=== PATIENT | male | born 1940 | race Caucasian/White ===

== ENCOUNTER 2016-07-24 19:43 | Inpatient (IN) | payer MEDICARE, BC ==
[2016-07-24 19:44] VITALS: BMI 31.5
--- NOTE | 2016-07-24 20:58 | ED PDOC ---
Arrival/HPI - General Chief Complaint: Fever Time Seen by Provider: 07/24/16 20:25 Historian: Patient - History of Present Illness Narrative History of Present Illness (Text): 07/24/16 20:57 75 year old male whose past medical history includes COPD, chronic renal insufficency, and diabetes presents to the emergency department with fever and chills since this morning, also being treated w abx for some unspecified infection, now here for for bilateral lower extremity cellulitis over the past week. no vomiting or diarrhea. PMD: Dr. Reese 07/25/16 11:25 Time/Duration: 1 week Symptom Onset: Gradual Symptom Course: Unchanged Past Medical History - Provider Review Nursing Documentation Reviewed: Yes - Infectious Disease Hx of Infectious Diseases: None - Tetanus Immunization Tetanus Immunization: Unknown - Cardiac Hx Cardiac Disorders: Yes Hx Congestive Heart Failure: Yes Hx Hypertension: Yes - Pulmonary Hx Chronic Obstructive Pulmonary Disease (COPD): Yes - Neurological Hx Neurological Disorder: Yes Hx Dementia: Yes - HEENT Hx HEENT Disorder: Yes Hx Cataracts: Yes (left eye) - Renal Hx Renal Failure: Yes - Endocrine/Metabolic Hx Diabetes Mellitus Type 2: Yes - Hematological/Oncological Hx Blood Disorders: No - Integumentary Hx Dermatological Disorder: Yes Other/Comment: LYMPEDEMA BILATERAL LE, +4 pitting edema and dry leathery, painful , red lower legs - Musculoskeletal/Rheumatological Hx Arthritis: Yes - Gastrointestinal Hx Gastrointestinal Disorders: No - Genitourinary/Gynecological Hx Genitourinary Disorders: Yes (URINARY RETENTION) Hx Reproductive Disorders: Yes (BPH) - Psychiatric Hx Psychophysiologic Disorder: Yes Hx Depression: Yes Hx Emotional Abuse: No Hx Physical Abuse: No Hx Substance Use: No - Past Surgical History Past Surgical History: No Previous - Surgical History Other/Comment: polyps removed in rectum - Anesthesia Hx Anesthesia: Yes Hx Anesthesia Reactions: No Hx Malignant Hyperthermia: No - Suicidal Assessment Feels Threatened In Home Enviroment: No Family/Social History - Physician Review Nursing Documentation Reviewed: Yes Family/Social History: Unknown Family HX Smoking Status: Heavy Smoker > 10 Cigarettes Daily Hx Alcohol Use: No Hx Substance Use: No Hx Substance Use Treatment: No Allergies/Home Meds Allergies/Adverse Reactions: Allergies No Known Allergies Allergy (Verified 07/24/16 19:45) Home Medications: Home Meds Medication Instructions Recorded Confirmed Atorvastatin [Lipitor] 20 mg PO DAILY 04/05/12 07/24/16 Clopidogrel [Plavix] 75 mg PO DAILY 04/05/12 07/24/16 Exenatide [Byetta] 10 units SC BID 04/05/12 07/24/16 Metformin HCl 1,000 mg PO BID 04/05/12 07/24/16 Glyburide 5 mg PO TID 07/18/15 07/24/16 SITagliptin [Januvia] 100 mg PO DAILY 07/18/15 07/24/16 Pantoprazole [Protonix EC Tab] 40 mg PO DAILY 07/24/16 07/24/16 Review of Systems - Physician Review All systems were reviewed & negative as marked: Yes - Review of Systems Constitutional: Fevers Respiratory: absent: SOB Skin: Cellulitis (bilateral lower extremities) Physical Exam Vital Signs Reviewed: Yes Vital Signs Temp Pulse Resp BP Pulse Ox 07/25/16 00:08 93 H 18 95 07/24/16 19:49 98.5 F 106 H 18 106/63 94 L Temperature: Afebrile Blood Pressure: Normal Pulse: Tachycardic Respiratory Rate: Normal Appearance: Positive for: Well-Appearing, Non-Toxic, Comfortable Pain Distress: None Mental Status: Positive for: Alert and Oriented X 3 - Systems Exam Head: Present: Atraumatic, Normocephalic Pupils: Present: PERRL Extroacular Muscles: Present: EOMI Conjunctiva: Present: Normal Mouth: Present: Moist Mucous Membranes Neck: Present: Normal Range of Motion Respiratory/Chest: Present: Clear to Auscultation, Good Air Exchange. No: Respiratory Distress, Accessory Muscle Use Cardiovascular: Present: Regular Rate and Rhythm, Normal S1, S2. No: Murmurs Abdomen: Present: Normal Bowel Sounds. No: Tenderness, Distention, Peritoneal Signs Genitourinary Male: Present: Other (Chain Pegger: Souleymane, Scribe) Back: Present: Normal Inspection Upper Extremity: Present: Normal Inspection. No: Cyanosis, Edema Lower Extremity: Present: Edema (Bilateral lymphedema with erythema bilateral. ) Neurological: Present: GCS=15, CN II-XII Intact, Speech Normal Skin: Present: Warm, Dry, Normal Color. No: Rashes Psychiatric: Present: Alert, Oriented x 3, Normal Insight, Normal Concentration Medical Decision Making ED Course and Treatment: 07/24/16 22:22 Reviewed sono, US Testes - no acute process see full report Paged Dr. Reese. = 07/24/16 22:[address] Reese, pt primary doctor, who is aware and agrees with plan. Accepts pt in to his service. Requests Dr. Reeder podiatry and Dr. Escudero ID on consult. ordered iv abx for patient. 07/25/16 11:26 07/25/16 15:50 - Lab Interpretations Lab Results: 07/24/16 20:59 07/24/16 20:59 Lab Results 07/24/16 20:59: WBC 8.9, RBC 3.65, Hgb 11.6 L, Hct 34.7 L, MCV 95.1, MCH 31.8, MCHC 33.4, RDW 13.1, Plt Count 200, MPV 11.5 H, Gran % 68.6 H, Lymph % (Auto) 21.5 L, [place] % (Auto) 8.5 H, Eos % (Auto) 1.1 L, Baso % (Auto) 0.3, Gran # 6.12 , Lymph # 1.9, [place] # 0.8 H, Eos # 0.1, Baso # 0.03 07/24/16 20:59: Sodium 137, Potassium 3.9, Chloride 96 L, Carbon Dioxide 31, Anion Gap 14, BUN 57 H, Creatinine 2.2 H, Est GFR ( Amer) 35, Est GFR ( Non-Af Amer) 29, Random Glucose 98, Calcium 9.1, Total Bilirubin 0.4, AST 23, ALT 29, Alkaline Phosphatase 53, Total Protein 6.7, Albumin 3.6, Globulin 3.1, Albumin/Globulin Ratio 1.2 - RAD Interpretation Radiology Orders: 07/24/16 20:53 TESTES DUPLEX COMPLETE [US] Stat - Medication Orders Current Medication Orders: Albuterol/Ipratropium (Duoneb 3 Mg/0.5 Mg (3 Ml) Ud) 3 ml IH Q2H PRN PRN Reason: Shortness of Breath Atorvastatin Calcium (Lipitor) 20 mg PO DAILY [facility] Last Admin: 07/25/16 10:51 Dose: 20 mg Clopidogrel Bisulfate (Plavix) 75 mg PO DAILY [facility] Last Admin: 07/25/16 10:51 Dose: 75 mg Docusate Sodium (Colace) 100 mg PO BID [facility] Last Admin: 07/25/16 10:51 Dose: 100 mg Enoxaparin Sodium (Lovenox) 30 mg SC DAILY [facility] PRN Reason: Protocol Last Admin: 07/25/16 10:50 Dose: 30 mg Finasteride (Proscar) 5 mg PO DAILY [facility] Last Admin: 07/25/16 10:52 Dose: 5 mg Gabapentin (Neurontin) 300 mg PO HS [facility] PRN Reason: Protocol Last Admin: 07/25/16 01:31 Dose: 300 mg Re-Assess: Reassess Psych Meds Document 07/25/16 02:31 BN (Rec: 07/25/16 02:56 BN [id number]) Reassess Psych Med Effective Glyburide (Micronase) 5 mg PO AC [facility] Last Admin: 07/25/16 08:07 Dose: Not Given Non-Admin Reason: Patient Lethargic Sodium Chloride (Sodium Chloride 0.45%) 1,000 mls @ 100 mls/hr IV .Q10H [facility] Last Admin: 07/25/16 13:53 Dose: 100 mls/hr Ceftaroline Fosamil 400 mg/ (Sodium Chloride) 100 mls @ 100 mls/hr IVPB Q12 [facility] PRN Reason: Protocol Stop: 08/01/16 10:01 Last Admin: 07/25/16 10:57 Dose: 100 mls/hr Insulin Detemir (Levemir) 15 unit SC DAILY [facility] Last Admin: 07/25/16 10:52 Dose: 15 unit Insulin Human Regular (Humulin R Low) 0 units SC ACHS [facility] PRN Reason: Protocol Last Admin: 07/25/16 12:25 Dose: 2 units Magnesium Oxide (Mag-Ox) 400 mg PO DAILY [facility] Last Admin: 07/25/16 10:51 Dose: 400 mg Nicotine (Nicoderm Cq) 1 patch TD DAILY [facility] Last Admin: 07/25/16 10:50 Dose: 1 patch Pantoprazole Sodium (Protonix Ec Tab) 40 mg PO DAILY [facility] Last Admin: 07/25/16 10:51 Dose: 40 mg Sitagliptin Phosphate (Januvia) 25 mg PO DAILY [facility] Last Admin: 07/25/16 10:51 Dose: 25 mg Tamsulosin HCl (Flomax) 0.4 mg PO DAILY [facility] Last Admin: 07/25/16 10:51 Dose: 0.4 mg Discontinued Medications Vancomycin HCl (Vancomycin 1gm) 1 gm in 250 mls @ 167 mls/hr IVPB STAT STA PRN Reason: Protocol Stop: 07/25/16 00:04 Last Admin: 07/25/16 01:32 Dose: 167 mls/hr Cefazolin Sodium (Ancef 1gm In Ns) 1 gm in 100 mls @ 100 mls/hr IVPB STAT STA PRN Reason: Protocol Stop: 07/25/16 02:00 Last Admin: 07/25/16 01:31 Dose: 100 mls/hr Disposition/Present on Arrival - Present on Arrival Any Indicators Present on Arrival: Yes History of DVT/PE: No History of Uncontrolled Diabetes: Yes Urinary Catheter: No History of Decub. Ulcer: No History Surgical Site Infection Following: None - Disposition Have Diagnosis and Disposition been Completed?: Yes Diagnosis: Cellulitis, Renal insufficiency Disposition: HOSPITALIZED Disposition Time: 22:00 Patient Plan: Admission Patient Problems: Current Active Problems Problem Status Onset Cellulitis Acute Renal insufficiency Acute Condition: STABLE
[2016-07-24 21:22] LABS: ADD MANUAL DIFF? NO
[2016-07-24 21:27] LABS: BASO # 0.03 K/mm3 (0.0-2.0); BASO % 0.3 % (0.0-3.0); EOS # 0.1 (0.0-0.7); EOS % 1.1 % (1.5-5.0); GRAN # 6.12 (1.4-6.5); GRAN % 68.6 % (50.0-68.0); HEMATOCRIT 34.7 % (42.0-52.0); LYMPH # 1.9 (1.2-3.4); LYMPH % 21.5 % (22.0-35.0); MEAN CELL VOLUME 95.1 fL (80.0-105.0); MEAN CORPUSCULAR HEMOGLOBIN 31.8 pg (25.0-35.0); MEAN CORPUSCULAR HGB CONC 33.4 g/dl (31.0-37.0); MEAN PLATELET VOLUME 11.5 fl (7.0-11.0); MONO # 0.8 (0.1-0.6); MONO % 8.5 % (1.0-6.0); PLATELET COUNT 200 10^3/uL (120.0-450.0); RED CELL DISTRIBUTION WIDTH 13.1 % (11.5-14.5); WHITE BLOOD COUNT 8.9 10^3/ul (4.5-11.0)
[2016-07-24 21:39] LABS: ALB/GLOB RATIO 1.2 (1.1-1.8); BILIRUBIN,TOTAL 0.4 mg/dL (0.2-1.3); CALCIUM 9.1 mg/dL (8.4-10.5); POTASSIUM 3.9 mmol/L (3.6-5.0); TOTAL PROTEIN 6.7 g/dL (5.8-8.3)
--- NOTE | 2016-07-24 22:14 | US ---
EXAM: US Scrotum CLINICAL HISTORY: 75 years old, male; Pain; Scrotum pain; Additional info: L testicular pain TECHNIQUE: Real-time ultrasound of the scrotum with color Doppler and image documentation. EXAM DATE/TIME: 07/24/2016 8:53 PM COMPARISON: There are no prior studies for comparison. FINDINGS: Right testicle: Right testicle measures proximally 4.4 x 2.8 x 2.3 cm. There is expected intratesticular blood flow. There are no testicular masses. Right epididymal head measures approximately 9 x 11 mm. There is no skin thickening. There is no hydrocele. . Left testicle: Left testicle measures approximately 4 x 2.4 x 2.4 cm. There are no testicular masses. There is expected intratesticular blood flow. Left epididymal head measures approximately 8 x 10 mm. There is no hydrocele. There may be a small left varicocele IMPRESSION: No torsion or testicular masses; possible small left varicocele
[2016-07-24] MEDS ORDERED: ceFAZolin 1 gm in NS 1 GM/100 ML BAG IVPB STA (22:34)
[2016-07-24] MEDS ORDERED: Vancomycin 1gm in NS 250ml 1 GM/250 ML BAG IVPB STA (22:35)
[2016-07-24] MEDS ORDERED: Albuterol-Ipratrop 3 mg / 0.5 (3 ml) UD IH PRN (23:47)
[2016-07-25] MEDS ORDERED: ceFAZolin 1 gm in NS 1 GM/100 ML BAG IVPB STA (01:01)
[2016-07-25] MEDS: Sodium Chloride 0.45% 1,000 ML IV SCH ×2 (01:32→13:53)
[2016-07-25] MEDS ORDERED: Enoxaparin 40 mg Syringe SC SCH (10:00)
[2016-07-25] MEDS: Enoxaparin 30 mg Syringe SC SCH (10:50)
[2016-07-25] MEDS: Magnesium Oxide 400 mg Tab UD PO SCH (10:51)
[2016-07-25] MEDS: Pantoprazole 40 mg EC Tab PO SCH (10:51)
[2016-07-25] MEDS: Insulin Detemir 100 units/ml Vial (Levemir) SC SCH (10:52)
[2016-07-25] MEDS: Insulin Reg-LOW-Coverage SC SCH ×3 (12:25→22:11)
--- NOTE | 2016-07-25 16:13 | CP.PCM.CON ---
History of Present Illness - History of Present Illness History of Present Illness: 75 year old male was seen resting comfortably at bedside. Pt seen concerning bilateral leg swelling and redness. Symptoms began 1 week ago and have progressed to current intensity and distribution. Pt denies recent inciting even. Pt grades pain to legs upon contact graded a 4/10/. Pt also reporting pain to plantar lateral aspect of left foot. Pt denies inciting incident or trauma to area. Grades this pain a 3/10 when walking. Pt was admitted with fever and chills, symptoms have subsided at time of interview. Pt denies overnight n/v/sob/cp. Past Patient History - Infectious Disease Hx of Infectious Diseases: None - Tetanus Immunizations Tetanus Immunization: Unknown - Past Social History Smoking Status: Heavy Smoker > 10 Cigarettes Daily - CARDIAC Hx Cardiac Disorders: Yes Hx Congestive Heart Failure: Yes Hx Hypertension: Yes - PULMONARY Hx Chronic Obstructive Pulmonary Disease (COPD): Yes - NEUROLOGICAL Hx Neurological Disorder: Yes Hx Dementia: Yes - HEENT Hx HEENT Problems: Yes Hx Cataracts: Yes (left eye) - RENAL Hx Renal Failure: Yes - ENDOCRINE/METABOLIC Hx Diabetes Mellitus Type 2: Yes - HEMATOLOGICAL/ONCOLOGICAL Hx Blood Disorders: No - INTEGUMENTARY Hx Dermatological Problems: Yes Other/Comment: LYMPEDEMA BILATERAL LE, +4 pitting edema and dry leathery, painful , red lower legs - MUSCULOSKELETAL/RHEUMATOLOGICAL Hx Arthritis: Yes - GASTROINTESTINAL Hx Gastrointestinal Disorders: No - GENITOURINARY/GYNECOLOGICAL Hx Genitourinary Disorders: Yes (URINARY RETENTION) Hx Reproductive Disorders: Yes (BPH) - PSYCHIATRIC Hx Psychophysiologic Disorder: Yes Hx Depression: Yes Hx Emotional Abuse: No Hx Physical Abuse: No Hx Substance Use: No - SURGICAL HISTORY Other/Comment: polyps removed in rectum - ANESTHESIA Hx Anesthesia: Yes Hx Anesthesia Reactions: No Hx Malignant Hyperthermia: No Meds Allergies/Adverse Reactions: Allergies Allergy/AdvReac Type Severity Reaction Status Date / Time No Known Allergies Allergy Verified 07/24/16 19:45 - Medications Medications: Current Medications Albuterol/Ipratropium (Duoneb 3 Mg/0.5 Mg (3 Ml) Ud) 3 ml IH Q2H PRN PRN Reason: Shortness of Breath Atorvastatin Calcium (Lipitor) 20 mg PO DAILY [facility] Last Admin: 07/25/16 10:51 Dose: 20 mg Clopidogrel Bisulfate (Plavix) 75 mg PO DAILY [facility] Last Admin: 07/25/16 10:51 Dose: 75 mg Docusate Sodium (Colace) 100 mg PO BID [facility] Last Admin: 07/25/16 10:51 Dose: 100 mg Enoxaparin Sodium (Lovenox) 30 mg SC DAILY [facility] PRN Reason: Protocol Last Admin: 07/25/16 10:50 Dose: 30 mg Finasteride (Proscar) 5 mg PO DAILY [facility] Last Admin: 07/25/16 10:52 Dose: 5 mg Gabapentin (Neurontin) 300 mg PO HS [facility] PRN Reason: Protocol Last Admin: 07/25/16 01:31 Dose: 300 mg Glyburide (Micronase) 5 mg PO AC [facility] Last Admin: 07/25/16 08:07 Dose: Not Given Sodium Chloride (Sodium Chloride 0.45%) 1,000 mls @ 100 mls/hr IV .Q10H [facility] Last Admin: 07/25/16 13:53 Dose: 100 mls/hr Ceftaroline Fosamil 400 mg/ (Sodium Chloride) 100 mls @ 100 mls/hr IVPB Q12 [facility] PRN Reason: Protocol Stop: 08/01/16 10:01 Last Admin: 07/25/16 10:57 Dose: 100 mls/hr Insulin Detemir (Levemir) 15 unit SC DAILY [facility] Last Admin: 07/25/16 10:52 Dose: 15 unit Insulin Human Regular (Humulin R Low) 0 units SC ACHS [facility] PRN Reason: Protocol Last Admin: 07/25/16 12:25 Dose: 2 units Magnesium Oxide (Mag-Ox) 400 mg PO DAILY [facility] Last Admin: 07/25/16 10:51 Dose: 400 mg Nicotine (Nicoderm Cq) 1 patch TD DAILY [facility] Last Admin: 07/25/16 10:50 Dose: 1 patch Pantoprazole Sodium (Protonix Ec Tab) 40 mg PO DAILY [facility] Last Admin: 07/25/16 10:51 Dose: 40 mg Sitagliptin Phosphate (Januvia) 25 mg PO DAILY [facility] Last Admin: 07/25/16 10:51 Dose: 25 mg Tamsulosin HCl (Flomax) 0.4 mg PO DAILY [facility] Last Admin: 07/25/16 10:51 Dose: 0.4 mg Physical Exam - Constitutional Appears: Well, Non-toxic, No Acute Distress - Extremities Exam Additional comments: Vasc: DP and PT pulses non-palpable bilateral. CFT >5 seconds to all digits b/ l. Neuro: Gross sensation decreased b/l. Ortho: Pain on palpation to bilateral legs and dorsal feet. Derm: Skin of dorsal feet and skin is shiny, thin, with non-blanchable erythema. No open wounds, lesions, or portals of entry noted. Right turgid, dorsal foot vesicle noted. Lymphedema noted extending from feet bilaterally up to thigh level. Right foot sub-5th metatarsal head tender to palpation keratotic lesion noted. - Neurological Exam Neurological exam: Alert, Oriented x3 - Psychiatric Exam Psychiatric exam: Normal Affect, Normal Mood Results - Vital Signs Recent Vital Signs: Last Vital Signs Temp 98.4 F 07/25/16 08:47 Pulse 94 H 07/25/16 11:11 Resp 20 07/25/16 08:47 BP 127/68 07/25/16 08:47 Pulse Ox 95 07/25/16 00:08 - Labs Result Diagrams: 07/24/16 20:59 07/24/16 20:59 Assessment & Plan - Assessment and Plan (Free Text) Assessment: 75 year old male with 1) Lymphedema and cellulits. 2) Right plantar Intractable plantar keratosis (IPK)lesion. Plan: Patient examined and evaluated. Discussed with attending, Dr. Reeder. Skin was cleansed with normal sterile saline. Dressed both lower legs with LION wraps. Right plantar hyperkeratitic lesion excisionally debrided, using #15 blade, of all hyperkeratotic tissue down to level of healthy epidermal tissue without incident. Patient to keep legs elevated when resting. Podiatry will continue to follow patient while in house. - Date & Time Date: 07/25/16 Time: 15:19
--- NOTE | 2016-07-25 17:15 | CON ---
DATE: 07/25/2016 REASON FOR CONSULTATION: Acute kidney injury superimposed on chronic kidney disease. HISTORY OF PRESENTING ILLNESS: A 75-year-old male, previously unknown to me, was admitted yesterday with complaints of fever, chills, nausea, vomiting, diarrhea at home. Also, complaining of lower ext remity swelling and erythema. The patient was receiving oral antibiotics for his lower extremity romsery lulitis. In the Emergency Room, he was found to have 4+ pitting edema of his lower extremities, eryt javier. He was found to be borderline hypotensive with a blood pressure of 106/63 and a pulse rate of 106. He was found to have a BUN of 57 and a creatinine of 2.2, which is higher than his baseline. H surekhae, consultation is requested. PAST MEDICAL AND SURGICAL HISTORY: Morbid obesity, NIDDM, hypertension, hyperlipidemia, COPD, chroni c lower extremity edema, pulmonary hypertension, chronic venous stasis. FAMILY HISTORY: Noncontributory. 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 ALLERGIES: No known drug allergies. MEDICATIONS AT HOME: Flomax, Revatio, Januvia 100 daily, Protonix, metformin 1000 b.i.d., mag oxide, insulin, glyburide 5 t.i.d., gabapentin 300, Lasix 40 daily, Proscar, Byetta, Colace, Plavix, Lipito r. REVIEW OF SYSTEMS: Shortness of breath, cough, fever, chills, diarrhea, increased lower extremity ed jeffrey, erythema of the lower extremities. All other systems are reviewed and are unremarkable. PHYSICAL EXAMINATION: GENERAL: Obese, elderly male lying in bed. VITAL SIGNS: Blood pressure 148/76, heart rate 99, respiratory rate 20, temperature 98.6, T-max is 9 8.5. HEENT: Normocephalic, atraumatic, positive pallor. NECK: Supple, no JVD. LUNGS: Bilateral rhonchi, coarse breath sounds, poor inspiratory effort. CARDIAC: S1, S2, regular rate and rhythm, positive murmur, no rub. ABDOMEN: Obese, distended, soft, nontender, bowel sounds present. EXTREMITIES: Chronic stasis changes, chronic erythema of the lower extremities, nonpitting edema. INTAKE AND OUTPUT: 1410/350. LABORATORY DATA: WBC is 8.9, hemoglobin 11.6, hematocrit 34.7, platelets 200, eosinophils 1%. Sodiu m 137, potassium 3.9, chloride 96, CO2 31, BUN 57, creatinine 2.2, glucose 98, calcium 9.1, AST 23, A LT 29, albumin 3.6. ASSESSMENT AND PLAN: 1. Acute kidney injury superimposed on chronic kidney disease stage III? Baseline creatinine is jessica und 1.4. 2. Recent cellulitis of his lower extremities. 3. Now with nausea, vomiting, diarrhea,? Clostridium difficile colitis. 4. Non-insulin dependent diabetes mellitus. 5. Morbid obesity. 6. Sleep apnea, noncompliant with BiPAP. 7. Pulmonary hypertension secondary to chronic obstructive pulmonary disease. PLAN: 1. . 2. Hold metformin. 3. Avoid nephrotoxins. 4. Check urinalysis and urine culture. 5. Check stool for C. difficile. Thank you for the courtesy of this consultation. We will follow this patient closely with you. Daria Constantino MD cc: [id number] TT: 07/25/2016 17:14:43 Confirmation # [id number] Dictation # [id number] mn
[2016-07-25 17:57] VITALS: O2SAT 98
--- NOTE | 2016-07-25 18:07 | CP.PCM.CON ---
History of Present Illness - History of Present Illness History of Present Illness: 75 year old male with PMH of HTN, dyslipidemia, chronic CHF, CAD, COPD, chronic renal failure, DM, obesity with BMI 38, peripheral vascular disease, obstructive sleep apnea, dementia, history of pneumonia came in to [facility], [place] complaining of subjective fever and chills, associated with continued bilateral lower extremity swelling. He was being treated for cellulitis with PO antibiotics for about a week prior to the admission. He denies headache or dizziness, no chest pain, no SOB currently, no cough, no abdominal pain, no diarrhea, no dysuria. He denies specific animal contacts, no walking barefoot on soil, no soaking of legs in water. Infectious Diseases consult is requested to further evaluate and manage. Review of Systems - Review of Systems All systems: reviewed and no additional remarkable complaints except (as per HPI ) Past Patient History - Infectious Disease Hx of Infectious Diseases: None - Tetanus Immunizations Tetanus Immunization: Unknown - Past Social History Smoking Status: Former Smoker - CARDIAC Hx Cardiac Disorders: Yes Hx Congestive Heart Failure: Yes Hx Hypercholesterolemia: Yes Hx Hypertension: Yes Hx Peripheral Edema: Yes - PULMONARY Hx Respiratory Disorders: Yes Hx Asthma: Yes Hx Bronchitis: Yes Hx Chronic Obstructive Pulmonary Disease (COPD): Yes Hx Emphysema: Yes Hx Pneumonia: Yes - NEUROLOGICAL Hx Neurological Disorder: Yes Hx Dementia: Yes - HEENT Hx HEENT Problems: Yes Hx Cataracts: Yes (left eye) - RENAL Hx Renal Failure: Yes - ENDOCRINE/METABOLIC Hx Diabetes Mellitus Type 2: Yes - HEMATOLOGICAL/ONCOLOGICAL Hx Blood Disorders: No - INTEGUMENTARY Hx Dermatological Problems: Yes Other/Comment: LYMPEDEMA BILATERAL LE, +4 pitting edema and dry leathery, painful , red lower legs - MUSCULOSKELETAL/RHEUMATOLOGICAL Hx Arthritis: Yes Hx Falls: Yes Hx Osteoarthritis: Yes Hx Unsteady Gait: Yes - GASTROINTESTINAL Hx Gastrointestinal Disorders: No - GENITOURINARY/GYNECOLOGICAL Hx Genitourinary Disorders: Yes (URINARY RETENTION) - PSYCHIATRIC Hx Psychophysiologic Disorder: Yes Hx Depression: Yes Hx Emotional Abuse: No Hx Physical Abuse: No - SURGICAL HISTORY Other/Comment: polyps removed in rectum - ANESTHESIA Hx Anesthesia: Yes Hx Anesthesia Reactions: No Hx Malignant Hyperthermia: No Meds Allergies/Adverse Reactions: Allergies Allergy/AdvReac Type Severity Reaction Status Date / Time No Known Allergies Allergy Verified 07/24/16 19:45 - Medications Medications: Current Medications Albuterol/Ipratropium (Duoneb 3 Mg/0.5 Mg (3 Ml) Ud) 3 ml IH Q2H PRN PRN Reason: Shortness of Breath Atorvastatin Calcium (Lipitor) 20 mg PO DAILY [facility] Clopidogrel Bisulfate (Plavix) 75 mg PO DAILY [facility] Docusate Sodium (Colace) 100 mg PO BID [facility] Last Admin: 07/25/16 01:31 Dose: Not Given Finasteride (Proscar) 5 mg PO DAILY [facility] Gabapentin (Neurontin) 300 mg PO HS [facility] PRN Reason: Protocol Last Admin: 07/25/16 01:31 Dose: 300 mg Glyburide (Micronase) 5 mg PO AC [facility] Sodium Chloride (Sodium Chloride 0.45%) 1,000 mls @ 100 mls/hr IV .Q10H [facility] Last Admin: 07/25/16 01:32 Dose: 100 mls/hr Insulin Detemir (Levemir) 15 unit SC DAILY [facility] Magnesium Oxide (Mag-Ox) 400 mg PO DAILY [facility] Nicotine (Nicoderm Cq) 1 patch TD DAILY [facility] Pantoprazole Sodium (Protonix Ec Tab) 40 mg PO DAILY [facility] Sitagliptin Phosphate (Januvia) 25 mg PO DAILY [facility] Tamsulosin HCl (Flomax) 0.4 mg PO DAILY [facility] Physical Exam - Constitutional Appears: Non-toxic, No Acute Distress - Head Exam Head Exam: NORMAL INSPECTION - ENT Exam ENT Exam: Mucous Membranes Moist - Neck Exam Neck exam: Negative for: Lymphadenopathy, Meningismus - Respiratory Exam Respiratory Exam: Decreased Breath Sounds - Cardiovascular Exam Cardiovascular Exam: +S1, +S2 - GI/Abdominal Exam GI & Abdominal Exam: Soft. absent: Tenderness - Extremities Exam Additional comments: bilateral lower extremity swelling and erythema Results - Vital Signs Recent Vital Signs: Last Vital Signs Temp 98.6 F 07/25/16 01:33 Pulse 99 H 07/25/16 01:33 Resp 20 07/25/16 01:33 BP 148/76 07/25/16 01:33 Pulse Ox 95 07/25/16 00:08 - Labs Result Diagrams: 07/24/16 20:59 07/24/16 20:59 Assessment & Plan - Assessment and Plan (Free Text) Plan: Assessment Consider bilateral lower extremity cellulitis on top of venous stasis HTN dyslipidemia chronic CHF CAD COPD chronic renal failure DM obesity with BMI 38 peripheral vascular disease obstructive sleep apnea dementia history of pneumonia Plan Started patient on Ceftaroline pending blood cx; reviewed Podiatry evaluation and recommendations (Manas bandaging aside from antibiotics) will monitor clinical response
--- NOTE | 2016-07-25 18:57 | CON ---
DATE: 07/25/2016 REFERRING PHYSICIAN: Dr. Reese. REASON FOR CONSULT: Chronic obstructive lung disease, hypoventilation syndrome, sleep apnea syndrome . HISTORY OF PRESENT ILLNESS: This is a 75-year-old male with multiple medical issues including morbid obesity, chronic obstructive lung disease, hypoventilation syndrome, history of lung nodule, chronic renal insufficiency, diabetes, chronic lower extremities stasis dermatitis and ulcers, who comes in with worsening of lower extremity ulcers with oozing secretion. No chest pain, no nausea, no vomitin g, no diarrhea. PAST MEDICAL HISTORY: Chronic obstructive lung disease, hypoventilation syndrome, sleep apnea syndro me, lung nodule, diabetes, renal failure, obesity, chronic lower extremities stasis dermatitis. ALLERGIES: None known. SOCIAL HISTORY: Active smoker. Denied any alcohol use. FAMILY HISTORY: No significant cardiopulmonary disease reported. MEDICATIONS: He is on ceftaroline 400 mg q.12 hours, Colace 100 mg twice a day, albuterol-Atrovent n ebulizer q.12 hours p.r.n., Flomax 0.4 mg daily, insulin coverage, Januvia 25 mg daily, Levemir 50 un its subQ daily, Lipitor 20 mg daily, Lovenox 30 mg daily, mag oxide 400 mg daily, 5 mg before m eals, Neurontin 300 mg at bedtime, Nicoderm patch daily, Plavix 75 mg daily, Proscar 5 mg daily, Prot tonia 40 mg daily, IV fluid half normal saline at 100 mL per hour. REVIEW OF SYSTEMS: No headache, no rhinitis. Has cough and shortness of breath. No chest pain, no abdominal pain, no dysuria. Has significant leg swelling and oozing ulcer of lower extremities. PHYSICAL EXAMINATION: GENERAL: He is lying in the bed, in mild distress, has cough and shortness of breath. VITAL SIGNS: Temp is 98, heart rate is 97, respiratory rate is 22, blood pressure 127/68, pulse ox 9 5% on nasal cannula. HEENT: Moist mucous membranes. Crowded airway. Mallampati score is 4. NECK: Short, thick neck. LUNGS: Has scattered rhonchi and wheezing. HEART: S1, S2. ABDOMEN: Soft, nontender. EXTREMITIES: Has oozing ulcers of both lower extremities, left more than the right. NEUROLOGIC: Awake, alert, follows simple commands. LABORATORY DATA: Shows hemoglobin 11.6, hematocrit 34.6, WBC 8.9, platelet is 200. Sodium 137, pota ssium 2.9, chloride 96, bicarbonate 31, BUN 57, creatinine is 2.2, calcium is 9.1, total bilirubin 0. 4, AST 23, ALT 29, alkaline phosphatase is 53. Had a testicular ultrasound done, which shows no tors ion or testicular mass, possible small left . IMPRESSION AND PLAN: Chronic obstructive lung disease, sleep apnea syndrome, hypoventilation syndrom e, morbid obesity, diabetes, peripheral vascular disease, peripheral neuropathy, chronic stasis ulcer ation with acute ulcers and oozing of secretions and lymphedema, history of right mainstem lung bronc hus nodule. The patient is already started on antibiotics. Will continue BiPAP while sleeping, bron chodilator, and a Nicoderm patch. The patient is urged to stop smoking. further CAT scan for bronchial nodule; has been there for a few years now. Thank you and will follow with you. Lucia Garza MD cc: [id number] TT: 07/25/2016 18:56:32 Confirmation # [id number] Dictation # [id number] dn
[2016-07-26 06:46] LABS: URINE BILIRUBIN NEGATIVE (NEGATIVE); URINE BLOOD NEGATIVE (NEGATIVE); URINE GLUCOSE (UA) NEGATIVE (NEGATIVE); URINE KETONE NEGATIVE (NEGATIVE); URINE LEUKOCYTE ESTERASE NEGATIVE Leu/uL (NEGATIVE); URINE PROTEIN NEGATIVE mg/dL (<30 mg/dL); URINE UROBILINOGEN 0.2 E.U./dL (<1 E.U./dL)
[2016-07-26 06:49] LABS: URINE APPEARANCE CLEAR (CLEAR); URINE COLOR YELLOW (YELLOW)
[2016-07-26 07:16] LABS: ADD MANUAL DIFF? NO
[2016-07-26 07:20] LABS: BASO # 0.02 K/mm3 (0.0-2.0); BASO % 0.3 % (0.0-3.0); EOS # 0.1 (0.0-0.7); EOS % 1.7 % (1.5-5.0); GRAN # 4.51 (1.4-6.5); GRAN % 62.8 % (50.0-68.0); HEMATOCRIT 33.5 % (42.0-52.0); LYMPH # 1.8 (1.2-3.4); LYMPH % 25.3 % (22.0-35.0); MEAN CORPUSCULAR HEMOGLOBIN 30.7 pg (25.0-35.0); MEAN CORPUSCULAR HGB CONC 31.9 g/dl (31.0-37.0); MEAN PLATELET VOLUME 11.2 fl (7.0-11.0); MONO # 0.7 (0.1-0.6); MONO % 9.9 % (1.0-6.0); PLATELET COUNT 180 10^3/uL (120.0-450.0); RED CELL DISTRIBUTION WIDTH 13.2 % (11.5-14.5); WHITE BLOOD COUNT 7.2 10^3/ul (4.5-11.0)
[2016-07-26 07:32] LABS: ALB/GLOB RATIO 1.1 (1.1-1.8); BILIRUBIN,TOTAL 0.2 mg/dL (0.2-1.3); CALCIUM 8.6 mg/dL (8.4-10.5); MAGNESIUM 1.5 mg/dL (1.7-2.2); POTASSIUM 4.6 mmol/L (3.6-5.0); TOTAL PROTEIN 6.5 g/dL (5.8-8.3)
[2016-07-26 07:49] VITALS: BP 108/52; PULSE 80; RESP 21; TEMP 97.8
[2016-07-26] MEDS ORDERED: Magnesium Sulfate 2 GM in Sodium Chloride 0.9% 100 ML IVPB ONE (08:53)
[2016-07-26] MEDS: Magnesium Oxide 400 mg Tab UD PO SCH (10:36)
[2016-07-26] MEDS: Pantoprazole 40 mg EC Tab PO SCH (10:37)
[2016-07-26] MEDS: Enoxaparin 30 mg Syringe SC SCH (10:37)
[2016-07-26] MEDS: Insulin Reg-LOW-Coverage SC SCH ×2 (10:38→12:34)
[2016-07-26] MEDS: Insulin Detemir 100 units/ml Vial (Levemir) SC SCH (10:44)
[2016-07-26] MEDS: Sodium Chloride 0.45% 1,000 ML IV SCH (10:57)
--- NOTE | 2016-07-26 11:07 | HP ---
The patient was seen and evaluated on 07/25/2016. REASON FOR ADMISSION: Bilateral leg swelling and redness, and fever. HISTORY OF PRESENT ILLNESS: This is a 75-year-old male with past medical history of hypertension, di abetes, obesity, chronic back pain, chronic knee pain, arthritis and bilateral leg lymphedema for yea rs. He usually stays at home. He does not move much because of his leg pain and knee arthritis and back pain. Came to the ER because of the increased leg swelling associated with redness, fever, chil ls. Also, he had antibiotic as outpatient, but it seems it did not help. The patient came with bila teral leg edema, redness and swelling, occasional vomiting. No diarrhea, no other complaint. PAST MEDICAL HISTORY: As I mentioned, COPD, obstructive sleep apnea, hypertension, morbid obesity, b ilateral leg lymphedema with recurrent cellulitis, hypercholesterolemia, diabetes. SOCIAL HISTORY: Lives with his . FAMILY HISTORY: Noncontributory. REVIEW OF SYSTEMS: As in the present illness, back pain, leg pain, cannot move around; dyspnea, used nebulizers, used BiPAP machine. He had diarrhea a couple days which stopped by itself; otherwise, u sually good bowel movement. He also has some testicular edema sometimes from sitting too long, frequ ent urinations; otherwise negative. PHYSICAL EXAMINATION: VITAL SIGNS: Temperature 98.5, heart rate 106, blood pressure 106/63, respiratory rate 20, and satur ation 94% on room air. HEAD AND NECK: Normal. No JVD, no thyromegaly. CHEST: Clear, diminished breath sounds in the bases. CARDIAC: First sound, second sound normal. ABDOMEN: Soft, obese, nontender. EXTREMITIES: Bilateral leg edema, redness ____ and both legs, both ankles, and more right ____ than left is diffusely red, swelling, hot and red and tender. LABORATORY DATA: Chemistry shows sodium 137, potassium 3.9, chloride 96, bicarb 31, BUN 57, creatini ne 2.2. Liver function test is normal. CBC shows white count 8.9, hemoglobin 11.6, hematocrit 34.7, platelets 200. Urinalysis is negative. The patient also had a testicular ultrasound which was nega tive. IMPRESSION AND PLAN: This 75-year-old male came in with history of lymphedema of both legs, came in with lower extremity worsening edema and redness diffusely and tenderness; fevers and chills at home, failed antibiotic as outpatient. Will admit the patient with acute bilateral lower extremity cellul itis. Will get a podiatry consult/Dr. Reeder and ID consult/Dr. Escudero. We will continue curre nt medications, other medications. At this time for his underlying chronic obstructive pulmonary dis ease and diabetes, resume all his meds including DuoNeb, BiPAP machine at night, Flomax, insulin, Griffin uvia, Levemir, Lipitor, Micronase, Neurontin, Plavix, Proscar, and Protonix. Continue GI and DVT pro phylaxis. Follow up clinically. Will also add insulin coverage. Continue current treatment. Will get a pulmonary consult, ID consult, podiatry consult. Will follow up with him clinically. Manoj Reese MD cc: [phone] TT: 07/26/2016 11:06:15 ms
[2016-07-26] MEDS ORDERED: Sodium Chloride 0.45% 1,000 ML IV SCH (11:52)
--- NOTE | 2016-07-26 14:37 | CP.PCM.PN ---
Subjective - Date & Time of Evaluation Date of Evaluation: 07/26/16 Time of Evaluation: 09:00 - Subjective Subjective: 75 year old male was seen resting comfortably at bedside. Pt seen concerning bilateral leg swelling and redness. Pt also has complaint of elongated tender toenails which catch his sheets. Pt denies overnight f/c/n/v/sob/cp. Objective - Vital Signs/Intake and Output Vital Signs (last 24 hours): Temp Pulse Resp BP Pulse Ox 97.8 F 80 21 108/52 L 98 07/26/16 07:30 07/26/16 07:30 07/26/16 07:30 07/26/16 07:30 07/26/16 07:30 Intake and Output: 07/26/16 07/26/16 06:59 18:59 Intake Total 900 Output Total 1770 Balance -870 - Medications Medications: Current Medications Albuterol/Ipratropium (Duoneb 3 Mg/0.5 Mg (3 Ml) Ud) 3 ml IH Q2H PRN PRN Reason: Shortness of Breath Last Admin: 07/26/16 08:58 Dose: 3 ml Atorvastatin Calcium (Lipitor) 20 mg PO DAILY [facility] Last Admin: 07/26/16 10:37 Dose: 20 mg Clopidogrel Bisulfate (Plavix) 75 mg PO DAILY [facility] Last Admin: 07/26/16 10:36 Dose: 75 mg Docusate Sodium (Colace) 100 mg PO BID [facility] Last Admin: 07/26/16 10:36 Dose: 100 mg Doxycycline Hyclate (Doryx) 100 mg PO Q12 [facility] PRN Reason: Protocol Stop: 08/01/16 05:00 Enoxaparin Sodium (Lovenox) 30 mg SC DAILY [facility] PRN Reason: Protocol Last Admin: 07/26/16 10:37 Dose: 30 mg Finasteride (Proscar) 5 mg PO DAILY [facility] Last Admin: 07/26/16 10:36 Dose: 5 mg Gabapentin (Neurontin) 300 mg PO HS [facility] PRN Reason: Protocol Last Admin: 07/25/16 22:11 Dose: 300 mg Glyburide (Micronase) 5 mg PO AC [facility] Last Admin: 07/26/16 10:44 Dose: 5 mg Ceftaroline Fosamil 400 mg/ (Sodium Chloride) 100 mls @ 100 mls/hr IVPB Q12 [facility] PRN Reason: Protocol Stop: 08/01/16 10:01 Last Admin: 07/26/16 10:36 Dose: 100 mls/hr Sodium Chloride (Sodium Chloride 0.45%) 1,000 mls @ 40 mls/hr IV .Q24H [facility] Insulin Detemir (Levemir) 15 unit SC DAILY [facility] Last Admin: 07/26/16 10:44 Dose: 15 unit Insulin Human Regular (Humulin R Low) 0 units SC ACHS [facility] PRN Reason: Protocol Last Admin: 07/26/16 12:34 Dose: 3 units Magnesium Oxide (Mag-Ox) 400 mg PO DAILY [facility] Last Admin: 07/26/16 10:36 Dose: 400 mg Nicotine (Nicoderm Cq) 1 patch TD DAILY [facility] Last Admin: 07/26/16 10:37 Dose: 1 patch Pantoprazole Sodium (Protonix Ec Tab) 40 mg PO DAILY [facility] Last Admin: 07/26/16 10:37 Dose: 40 mg Sitagliptin Phosphate (Januvia) 25 mg PO DAILY [facility] Last Admin: 07/26/16 10:36 Dose: 25 mg Tamsulosin HCl (Flomax) 0.4 mg PO DAILY [facility] Last Admin: 07/26/16 10:38 Dose: 0.4 mg - Labs Labs: 07/26/16 07:00 07/26/16 07:00 - Constitutional Appears: Well, Non-toxic, No Acute Distress - Extremities Exam Additional comments: Vasc: DP and PT pulses non-palpable bilateral. CFT >5 seconds to all digits b/ l. Neuro: Gross sensation decreased b/l. Ortho: Pain on palpation to bilateral legs and dorsal feet. Derm: Skin of dorsal feet and skin is shiny, thin, with blanchable erythema. Previous area of erythema has regressed 30%. No open wounds, lesions, or portals of entry noted. Right turgid, dorsal foot vesicle noted. Lymphedema noted extending from feet bilaterally up to thigh level. Right foot sub-5th metatarsal head tender to palpation keratotic lesion noted. Elongated, brittle , thickened toenails with subungal debris noted to all 10 pedal digits. - Neurological Exam Neurological Exam: Alert, Awake, Oriented x3 - Psychiatric Exam Psychiatric exam: Normal Affect, Normal Mood Assessment and Plan - Assessment and Plan (Free Text) Assessment: 75 year old male with 1) Lymphedema and cellulits. 2) Onychomycosis Plan: Patient examined and evaluated with attending, Dr. Reeder. Skin was cleansed with normal sterile saline. Dressed both lower legs with LION wraps. Pt to continue to use LION wraps for lower extrmeity compression for daytime hours. Dressings to be removed when patient is planning to go to sleep. Aseptic onycho-reduction performed to all 10 nail plates using nail nipper without incident down to hygienic length. . Patient to keep legs elevated when resting. Podiatry will continue to follow patient while in house. Pt is stable per podiatric standpoint for discharge.
--- NOTE | 2016-07-26 14:38 | PN ---
DATE: 07/26/2016 SUBJECTIVE: The patient is seen sitting in chair. He is awake. He is alert. He reports feeling be tter. He is noncompliant with his BiPAP. PHYSICAL EXAMINATION GENERAL: Morbidly obese, elderly male sitting in chair. VITAL SIGNS: Blood pressure 108/52?, heart rate 80, respiratory rate 21, temperature 97.8. HEENT: Normocephalic, atraumatic. NECK: Supple, no JVD. LUNGS: Bilateral rhonchi, prolonged expiration. CARDIAC: S1, S2, regular rate and rhythm, no murmur, no rub. ABDOMEN: Obese, distended, pendulous. Bowel sounds present. EXTREMITIES: Chronic stasis changes, nonpitting edema, lymphedema, erythema of the lower extremities . INTAKE AND OUTPUT: 1440/2120. LABORATORY DATA: WBC 7, hemoglobin 10.7, hematocrit 34, platelets 180, sodium 139, potassium 4.6, ch loride 99, CO2 35, BUN 37, creatinine 1.7, glucose 136, calcium 8.6, magnesium 1.5, AST 24, ALT 27, a lbumin 3.4. Urinalysis: Yellow, clear, pH 6.0, specific gravity 1.015, protein negative, glucose ne gative, ketones negative, leukocyte esterase negative. Blood cultures no growth so far. CURRENT MEDICATIONS: Ceftaroline 400 q. 12, Colace 100 b.i.d., DuoNeb, Flomax 0.4, Januvia 25, Levem ir, Lipitor, Lovenox, mag oxide, Micronase, Neurontin, Plavix, Proscar, half normal saline at 100. Mag sulfate 2 grams given this morning. ASSESSMENT: 1. Acute kidney injury superimposed on chronic kidney disease stage III, resolving acute kidney inju ry, creatinine approaching baseline of 1.4. 2. Prerenal azotemia suspect, the patient came in with nausea, vomiting and diarrhea, reportedly aft er large, protein meal,? food poisoning. 3. Recent cellulitis of his lower extremities. 4. Non-insulin dependent diabetes mellitus. 5. Morbid obesity. 6. Sleep apnea. 7. Pulmonary hypertension secondary to chronic obstructive pulmonary disease. PLAN: 1. Continue to hold metformin. 2. Change IV fluids to 40 mL per hour. 3. Push p.o. fluids. 4. Continue antibiotics. 5. Follow up stool for C. diff. 6. Follow up urine culture. Daria Constantino MD cc: [id number] TT: 07/26/2016 14:36:58 Confirmation # [id number] Dictation # [id number] tn
--- NOTE | 2016-07-26 16:50 | PN ---
DATE: 07/26/2016 SUBJECTIVE: The patient is in bed in no acute distress, nontoxic. PHYSICAL EXAMINATION: VITAL SIGNS: Temperature is 98, blood pressure is 108/80, respiratory rate of 20, heart rate of 70. HEENT: Unremarkable. NECK: Supple. LUNGS: Have decreased breath sounds. HEART: Normal S1, S2. ABDOMEN: Soft, nontender. LABORATORY DATA: Reveals a white count of 7.2 and hemoglobin of 10, platelets are noted. Creatinine is down to 1.7 from 2.2. Microbiology reveals blood cultures are no growth. The patient is on cefaz dvei, changed to doxycycline. ASSESSMENT AND PLAN: This is a 75-year-old male with bilateral lower extremity cellulitis on top of venous stasis disease, hypertension, dyslipidemia, chronic congestive heart failure. Culture is negat dee dee and switched to p.o. doxycycline for a short course. Case discussed with the staff at length. Aleksandar Escudero MD cc: [id number] TT: 07/26/2016 16:49:10 Confirmation # [id number] Dictation # [id number]
--- NOTE | 2016-07-27 12:15 | DS ---
A 75-year-old male admitted to the hospital. The patient was seen by podiatry consult, Dr. Ovalle, a nd ID consult, Dr. Green. The patient was given IV antibiotic. Next day, patient was evaluated and was given doxycycline p.o. and was planned to discharge home. Seems to be doing okay. Afebrile. No nausea, no vomiting, no other complaints. PHYSICAL EXAMINATION: VITAL SIGNS: Temperature 97.8, heart rate 80, blood pressure 156/78, respirations 20, saturation 98% . HEAD AND NECK: Normal. No JVD, no thyromegaly. CHEST: Clear. Good air entry. CARDIAC: First and second sounds are normal. ABDOMEN: Soft, nontender. EXTREMITIES: There is bilateral lymphedema, seems to be doing well and both legs wrapped with gauze, has been changed. NEUROLOGIC: The patient is alert, awake, oriented x 3, moving all extremities. Seen walking with a walker, doing well. LABORATORY STUDIES: Shows white count 7.2, hemoglobin 10.7, hematocrit 33, platelets 180. Chemistry shows sodium 139, potassium 4.6, chloride 99, bicarbonate 35, BUN 37, creatinine 1.7, which is impro gabriela. Blood sugar 136 and magnesium 1.5. Urinalysis was negative. DISCHARGE DIAGNOSES: 1. Bilateral leg cellulitis. Continue doxycycline for at least 7-10 days as outpatient. 2. Local wound care. The patient does have a visiting nurse. They do local wound care and ve ry well. 3. Acute renal insufficiency, improved with hydration and holding Lasix. The patient advised to hol d the Lasix and to resume it when the legs start to swell up, and resume it like 3 times a week only, 40 mg 3 times a week. This week he will be off. 4. Hypertension, chronic obstructive pulmonary disease, obstructive sleep apnea, chronic osteoarthri tis, chronic knee osteoarthritis, chronic back pain. PLAN: To continue his current therapy, use a walker, ambulate as possible, carefully, and I am going to see him as a home visit. Manoj Reese MD cc: [phone] TT: 07/27/2016 12:15:24 rn
== END 2016-07-26 16:53 | disposition home or self-care (01) | DRG 571 ==
LOC: ED 19:43 → ERH 22:26 → 5RNO 07-25 01:11
PROVIDERS: ADMIT Internal Medicine; ATTEND Internal Medicine
PROC: 0HBMXZZ Excision of Right Foot Skin, External Approach (ICD-10-PCS; principal; 2016-07-25)
PROC: 5A09357 Assistance with Respiratory Ventilation, Less than 24 Consecutive Hours, Continuous Positive Airway Pressure (ICD-10-PCS; 2016-07-25)
PROC: 3E0F7GC Introduction of Other Therapeutic Substance into Respiratory Tract, Via Natural or Artificial Opening (ICD-10-PCS; 2016-07-26)
DX: L03.115 Cellulitis of right lower limb (principal); L03.116 Cellulitis of left lower limb; N17.9 Acute kidney failure, unspecified; E11.22 Type 2 diabetes mellitus with diabetic chronic kidney disease; I27.2 Other secondary pulmonary hypertension; E66.01 Morbid (severe) obesity due to excess calories; F03.90 Unspecified dementia, unspecified severity, without behavioral disturbance, psychotic disturbance, mood disturbance, and anxiety; I50.9 Heart failure, unspecified; I13.0 Hypertensive heart and chronic kidney disease with heart failure and stage 1 through stage 4 chronic kidney disease, or unspecified chronic kidney disease; E11.42 Type 2 diabetes mellitus with diabetic polyneuropathy; E11.51 Type 2 diabetes mellitus with diabetic peripheral angiopathy without gangrene; J44.9 Chronic obstructive pulmonary disease, unspecified; I87.2 Venous insufficiency (chronic) (peripheral); G89.29 Other chronic pain; G47.33 Obstructive sleep apnea (adult) (pediatric); E78.00 Pure hypercholesterolemia, unspecified; E78.5 Hyperlipidemia, unspecified; I25.10 Atherosclerotic heart disease of native coronary artery without angina pectoris; B35.1 Tinea unguium; N18.3 Chronic kidney disease, stage 3 (moderate); M54.9 Dorsalgia, unspecified; M17.9 Osteoarthritis of knee, unspecified; L85.9 Epidermal thickening, unspecified; F17.210 Nicotine dependence, cigarettes, uncomplicated; Z79.84 Long term (current) use of oral hypoglycemic drugs; Z68.38 Body mass index [BMI] 38.0-38.9, adult; Z91.19 Patient's noncompliance with other medical treatment and regimen; Z87.01 Personal history of pneumonia (recurrent)

== ENCOUNTER 2016-08-10 18:18 | Observation (INO) | payer MEDICARE, BC ==
[2016-08-10 18:19] VITALS: BMI 31.5
--- NOTE | 2016-08-10 18:31 | ED PDOC ---
Arrival/HPI - General Time Seen by Provider: 08/10/16 18:19 Historian: Patient, Family - History of Present Illness Narrative History of Present Illness (Text): 08/10/16 18:29 75 year old male whose past medical history includes chronic lymphedema, renal insufficiency, hypertension, and COPD presents to the emergency department with generalized weakness and hypotension as per family since this morning. Patient is a poor historian. Noted patient has a recent visit for bilateral leg cellulitis. as per pt, woke up with left arm numbness. ems called for as notification of possible stroke, and hypotension. upon arrival, pt found to be normotensive. Family denies fevers at home. States he has a cough. No vomiting or abdominal pain. No other complaints at this time. 08/10/16 20:39 08/10/16 21:41 Time/Duration: 24 hours Symptom Onset: Sudden Modifying Factors (Text): None Context: Home Past Medical History - Provider Review Nursing Documentation Reviewed: Yes - Infectious Disease Hx of Infectious Diseases: None - Tetanus Immunization Tetanus Immunization: Unknown - Cardiac Hx Cardiac Disorders: Yes Hx Congestive Heart Failure: Yes Hx Hypertension: Yes Hx Peripheral Edema: Yes - Pulmonary Hx Respiratory Disorders: Yes Hx Asthma: Yes Hx Bronchitis: Yes Hx Chronic Obstructive Pulmonary Disease (COPD): Yes Hx Emphysema: Yes Hx Pneumonia: Yes - Neurological Hx Neurological Disorder: Yes Hx Dementia: Yes - HEENT Hx HEENT Disorder: Yes Hx Cataracts: Yes (left eye) - Renal Hx Renal Failure: Yes - Endocrine/Metabolic Hx Diabetes Mellitus Type 2: Yes - Hematological/Oncological Hx Blood Disorders: No - Integumentary Hx Dermatological Disorder: Yes Other/Comment: LYMPEDEMA BILATERAL LE, +4 pitting edema and dry leathery, painful , red lower legs - Musculoskeletal/Rheumatological Hx Arthritis: Yes Hx Falls: Yes Hx Osteoarthritis: Yes Hx Unsteady Gait: Yes - Gastrointestinal Hx Gastrointestinal Disorders: No - Genitourinary/Gynecological Hx Genitourinary Disorders: Yes (URINARY RETENTION) - Psychiatric Hx Psychophysiologic Disorder: Yes Hx Depression: Yes Hx Emotional Abuse: No Hx Physical Abuse: No Hx Substance Use: No - Past Surgical History Past Surgical History: No Previous - Surgical History Other/Comment: polyps removed in rectum - Anesthesia Hx Anesthesia: Yes Hx Anesthesia Reactions: No Hx Malignant Hyperthermia: No - Suicidal Assessment Feels Threatened In Home Enviroment: No Family/Social History - Physician Review Nursing Documentation Reviewed: Yes Family/Social History: Unknown Family HX Smoking Status: Former Smoker Hx Alcohol Use: No Hx Substance Use: No Hx Substance Use Treatment: No Allergies/Home Meds Allergies/Adverse Reactions: Allergies No Known Allergies Allergy (Verified 07/24/16 19:45) Home Medications: Home Meds Medication Instructions Recorded Confirmed Atorvastatin [Lipitor] 20 mg PO DAILY 04/05/12 07/24/16 Clopidogrel [Plavix] 75 mg PO DAILY 04/05/12 07/24/16 Exenatide [Byetta] 10 units SC BID 04/05/12 07/24/16 Pantoprazole [Protonix EC Tab] 40 mg PO DAILY 07/24/16 07/24/16 Review of Systems - Physician Review All systems were reviewed & negative as marked: Yes - Review of Systems Constitutional: Other (Generalized weakness). absent: Fevers Respiratory: Cough Gastrointestinal: absent: Abdominal Pain, Vomiting Physical Exam Vital Signs Temp Pulse Resp BP Pulse Ox 08/10/16 22:00 95 H 18 93/60 L 97 08/10/16 20:19 89 18 139/75 95 08/10/16 18:19 98.8 F 100 H 14 139/75 94 L Appearance: Positive for: Other (Chronically ill-appearing elderly male) - Systems Exam Head: Present: Atraumatic, Normocephalic Pupils: Present: PERRL Extroacular Muscles: Present: EOMI Conjunctiva: Present: Normal Mouth: Present: Moist Mucous Membranes Neck: Present: Normal Range of Motion Respiratory/Chest: Present: Clear to Auscultation, Good Air Exchange. No: Respiratory Distress, Accessory Muscle Use Cardiovascular: Present: Regular Rate and Rhythm, Normal S1, S2. No: Murmurs Abdomen: Present: Normal Bowel Sounds, Other (Obese). No: Tenderness, Peritoneal Signs Back: Present: Normal Inspection Upper Extremity: Present: Normal Inspection. No: Cyanosis, Edema Lower Extremity: Present: Other (Bilateral lower extremity elephantiasis. Left leg warm, erythematous). No: Edema Neurological: Present: GCS=15, CN II-XII Intact, Speech Normal Skin: Present: Warm, Dry, Pale. No: Rashes Psychiatric: Present: Alert, Oriented x 3, Normal Insight, Normal Concentration Medical Decision Making ED Course and Treatment: Impression: 75 year old male whose past medical history includes chronic lymphedema, renal insufficiency, hypertension, and COPD presents to the emergency department with generalized weakness and hypotension as per family since this morning. Differential Diagnosis include but are not limited to: r/o cva, cellultis, metabolic, infectious etiology Plan: -- EKG, Chest X-ray -- Labs -- Lori Aden -- Reassess and disposition Progress Notes: CT Head IMPRESSION: Atrophy and small vessel disease, no bleed Dictated and Authenticated by: Catina Carmen MD 08/10/2016 8:30 PM Eastern Time ([place] & [place]) 08/10/16 21:42 pt poor historian. upon arrival reports left arm numbness "which started this am ". as per , pt also hypotensive at home, although pt normotensive in er. noted recent admission for cellultiis. no cp/sob. case discussed with dr dueñas, will obs on tele. - Lab Interpretations Microbiology Results: Microbiology Results 08/10/16 19:15 Blood Blood Culture - Final NO GROWTH AFTER 5 DAYS 08/10/16 19:15 Blood Gram Stain - Final 08/10/16 18:45 Blood Blood Culture - Final NO GROWTH AFTER 5 DAYS 08/10/16 18:45 Blood Gram Stain - Final Lab Results: 08/10/16 18:45 08/10/16 18:45 Lab Results 08/10/16 18:45: Sodium 137, Chloride 97 L, Potassium 3.9, Carbon Dioxide 34 H, Anion Gap 10, BUN 29 H, Creatinine 1.7 H, Est GFR ( Amer) 48, Est GFR ( Non-Af Amer) 39, Random Glucose 62 L, Calcium 8.8, Magnesium 1.7, Total Bilirubin 0.3, AST 18, ALT 23, Alkaline Phosphatase 69, Lactate Dehydrogenase 316 L, Total Creatine Kinase 21 L, Troponin I 0.04 D, Total Protein 6.8, Albumin 3.7, Globulin 3.1, Albumin/Globulin Ratio 1.2 08/10/16 18:45: PT 11.3, INR 1.05, APTT 28.0 08/10/16 18:45: WBC 9.4 D, RBC 3.51, Hgb 11.0 L, Hct 34.0 L, MCV 96.9, MCH 31.3 , MCHC 32.4, RDW 13.4, Plt Count 191, MPV 11.8 H, Gran % 70.3 H, Lymph % (Auto) 20.5 L, Lake % (Auto) 7.8 H, Eos % (Auto) 1.2 L, Baso % (Auto) 0.2, Gran # 6.59 H, Lymph # 1.9, Lake # 0.7 H, Eos # 0.1, Baso # 0.02 08/10/16 18:45: pO2 49, VBG pH 7.40, VBG pCO2 62.0 H, VBG HCO3 38.4 H, VBG Total CO2 40.3 H, VBG O2 Sat (Calc) 90.0 H, VBG Base Excess 11.4 H, VBG Potassium 4.1, Sodium 139.0, Chloride 101.0, Glucose 63 L, Lactate 1.5, FiO2 21.0, Venous Blood Potassium 4.1 - RAD Interpretation Radiology Orders: 08/10/16 18:31 CHEST PORTABLE [RAD] Stat 08/10/16 19:34 HEAD W/O CONTRAST [CT] Stat - EKG Interpretation EKG Interpretation (Text): EKG shows sinus tachycardia at 104 BPM with right bundle branch block, which is old Interpreted by ED Physician: Yes Type: 12 lead EKG - Medication Orders Current Medication Orders: Discontinued Medications Acetaminophen (Tylenol 325mg Tab) 650 mg PO Q4H PRN PRN Reason: Pain, moderate (4-7) Last Admin: 08/11/16 04:29 Dose: 650 mg Re-Assess: MAR Pain/Vitals Document 08/11/16 05:29 DMITRI (Rec: 08/11/16 05:47 [id number]) Pain Reassessment Is This A Pain ReAssessment? Yes Sleep Is patient sleeping during reassessment? Yes Albuterol/Ipratropium (Duoneb 3 Mg/0.5 Mg (3 Ml) Ud) 3 ml IH Q2H PRN PRN Reason: Shortness of Breath Aspirin (Aspirin) 325 mg PO STAT STA Stop: 08/10/16 20:41 Last Admin: 08/10/16 21:20 Dose: 325 mg Aspirin (Ecotrin) 81 mg PO DAILY SALAZAR Last Admin: 08/12/16 11:32 Dose: 81 mg Atorvastatin Calcium (Lipitor) 20 mg PO DAILY [facility] Last Admin: 08/12/16 11:30 Dose: 20 mg Clopidogrel Bisulfate (Plavix) 75 mg PO DAILY [facility] Last Admin: 08/12/16 11:32 Dose: 75 mg Docusate Sodium (Colace) 100 mg PO BID [facility] Last Admin: 08/12/16 11:31 Dose: 100 mg Finasteride (Proscar) 5 mg PO DAILY [facility] Last Admin: 08/12/16 11:31 Dose: 5 mg Furosemide (Lasix) 40 mg PO QOTHERDAY PRN PRN Reason: Other Gabapentin (Neurontin) 300 mg PO HS SALAZAR PRN Reason: Protocol Last Admin: 08/11/16 21:55 Dose: 300 mg Heparin Sodium (Porcine) (Heparin) 5,000 units SC Q12 [facility] PRN Reason: Protocol Last Admin: 08/12/16 11:33 Dose: 5,000 units Vancomycin HCl (Vancomycin 1gm) 1 gm in 250 mls @ 167 mls/hr IVPB STAT STA PRN Reason: Protocol Stop: 08/10/16 20:01 Last Admin: 08/10/16 20:15 Dose: 167 mls/hr Piperacillin Sod/Tazobactam Sod (Zosyn 3.375 In Ns 100ml) 100 mls @ 200 mls/hr IVPB STAT STA PRN Reason: Protocol Stop: 08/10/16 19:01 Last Admin: 08/10/16 18:56 Dose: 200 mls/hr Ceftriaxone Sodium (Rocephin 1 Gram Ivpb) 1 gm in 100 mls @ 100 mls/hr IVPB DAILY [facility] PRN Reason: Protocol Last Admin: 08/12/16 11:35 Dose: 100 mls/hr Sodium Chloride (Sodium Chloride 0.9%) 1,000 mls @ 100 mls/hr IV .Q10H [facility] Last Admin: 08/12/16 11:36 Dose: 100 mls/hr Insulin Detemir (Levemir) 15 unit SC DAILY [facility] Last Admin: 08/12/16 11:32 Dose: 15 unit Insulin Human Regular (Humulin R Low) 0 units SC ACHS [facility] PRN Reason: Protocol Last Admin: 08/12/16 11:34 Dose: 1 units Magnesium Oxide (Mag-Ox) 400 mg PO DAILY [facility] Last Admin: 08/12/16 11:32 Dose: 400 mg Nicotine (Nicoderm Cq) 1 patch TD DAILY [facility] Last Admin: 08/12/16 11:35 Dose: 1 patch Nicotine (Nicoderm Cq) 1 patch TD ONCE ONE Stop: 08/11/16 22:00 Last Admin: 08/11/16 22:18 Dose: 1 patch Re-Assess: IRIS Transdermal Patch Removal Document 08/12/16 10:18 VS (Rec: 08/12/16 12:25 VS [id number]) Transdermal Patch Removal Removal of Transdermal Patch done? Yes Pantoprazole Sodium (Protonix Ec Tab) 40 mg PO 0600 [facility] Last Admin: 08/12/16 08:04 Dose: 40 mg Roflumilast (Daliresp) 500 mcg PO DAILY [facility] Last Admin: 08/12/16 11:31 Dose: 500 mcg Sildenafil Citrate (Revatio) 20 mg PO TID [facility] Last Admin: 08/12/16 11:32 Dose: 20 mg Tamsulosin HCl (Flomax) 0.4 mg PO DAILY [facility] Last Admin: 08/12/16 11:32 Dose: 0.4 mg NIHSS Scale ([place]) Time Performed: 20:40 - How Severe is the Stoke Baseline Level of Consciousness: 0=Alert LOC to Questions: 0=Both comments correct LOC to commands: 0=Obeys both correctly Best Gaze: 0=Normal Visual: 0=No visual loss Facial: 0=Normal Motor Arm - Left: 0=No drift Motor Arm - Right: 0=No drift Motor Leg - Left: 0=No drift Motor Leg - Right: 0=No drift Limb Ataxia: 0=Absent Sensory: 0=Normal Best Language: 0=No aphasia Dysarthia: 0=Normal articulation Extinction & Inattention (Neglect): 0=Normal, no object Score: 0 Risk Level: No Stroke Risk rTPA Inclusion/Exclusion - Refusal of Treatment Patient Refused Treatment: No - Inclusion Criteria for Altepase Patient is 18 years or Older: Yes The Clinical Diagnosis of Ischemic Stroke That is Causing a Potentially Disabling Neurological Deficit: No Time of Onset is Well Established to be Less Than 270 Minute Before Treatment Would Begin: No Risk/Benefit Discussed With Patient/Family Member Present: No - Scribe Statement The provider has reviewed the documentation as recorded by the Gege Florence Provider Scribe Attestation: All medical record entries made by the Myriamibfredy were at my direction and personally dictated by me. I have reviewed the chart and agree that the record accurately reflects my personal performance of the history, physical exam, medical decision making, and the department course for this patient. I have also personally directed, reviewed, and agree with the discharge instructions and disposition. Disposition/Present on Arrival - Present on Arrival Any Indicators Present on Arrival: No History of DVT/PE: No History of Uncontrolled Diabetes: Yes Urinary Catheter: No History of Decub. Ulcer: No History Surgical Site Infection Following: None - Disposition Have Diagnosis and Disposition been Completed?: Yes Diagnosis: Cellulitis, Numbness Disposition: HOSPITALIZED Disposition Time: 07:00 Condition: STABLE
[2016-08-10] MEDS ORDERED: Vancomycin 1gm in NS 250ml 1 GM/250 ML BAG IVPB STA (18:32)
[2016-08-10] MEDS ORDERED: Piperacillin/Tazobact 3.375 gm 100 ML IVPB STA (18:32)
[2016-08-10 19:00] LABS: VENOUS BLOOD GAS BASE EXCESS 11.4 mmol/L (0.0-2.0); VENOUS BLOOD GAS PO2 49 mm/Hg (30-55)
[2016-08-10 19:09] LABS: ALB/GLOB RATIO 1.2 (1.1-1.8); ALBUMIN 3.7 g/dL (3.0-4.8); CALCIUM 8.8 mg/dL (8.4-10.5); MAGNESIUM 1.7 mg/dL (1.7-2.2)
[2016-08-10 19:17] LABS: INR 1.05 (0.93-1.08); PROTHROMBIN TIME 11.3 Seconds (9.9-11.8)
[2016-08-10 19:20] LABS: TROPONIN I 0.04 ng/mL
[2016-08-10 19:39] LABS: BASO % 0.2 % (0.0-3.0); EOS % 1.2 % (1.5-5.0); GRAN # 6.59 (1.4-6.5); GRAN % 70.3 % (50.0-68.0); LYMPH # 1.9 (1.2-3.4); LYMPH % 20.5 % (22.0-35.0); MEAN CELL VOLUME 96.9 fL (80.0-105.0); MEAN CORPUSCULAR HEMOGLOBIN 31.3 pg (25.0-35.0); MEAN CORPUSCULAR HGB CONC 32.4 g/dl (31.0-37.0); MEAN PLATELET VOLUME 11.8 fl (7.0-11.0); MONO % 7.8 % (1.0-6.0); PLATELET COUNT 191 10^3/uL (120.0-450.0); RBC 3.51 10^6/uL (3.5-6.1); RED CELL DISTRIBUTION WIDTH 13.4 % (11.5-14.5); WHITE BLOOD COUNT 9.4 10^3/ul (4.5-11.0)
[2016-08-10 19:40] LABS: BASO # 0.02 K/mm3 (0.0-2.0); EOS # 0.1 (0.0-0.7); MONO # 0.7 (0.1-0.6)
--- NOTE | 2016-08-10 19:57 | CARD ---
APPROVED REPORT EKG Measurement Heart [id number] OR [id number] <Conclusion> Sinus tachycardia with 1st degree AV block with occasional premature ventricular complexes Left axis deviation Right bundle branch block Inferior infarct, age undetermined Abnormal ECG
--- NOTE | 2016-08-10 20:30 | CT ---
EXAM: CT Head Without Intravenous Contrast CLINICAL HISTORY: 75 years old, male; Pain; Headache; Headache not specified; Additional info: Weakness TECHNIQUE: Axial computed tomography images of the head/brain without intravenous contrast. This CT exam was performed using one or more of the following dose reduction techniques: automated exposure control, adjustment of the mA and/or kV according to patient size, and/or use of iterative reconstruction technique. EXAM DATE/TIME: 08/10/2016 7:34 PM COMPARISON: CT - HEAD W/O CONTRAST 01/24/2015 1:55:30 PM FINDINGS: Artifacts: Motion artifact degrades image quality. Brain: There is prominence of the of sulci gyri and ventricles. There is no midline shift. There is decreased attenuation in periventricular white matter. There are no focal masses. There are no focal hemorrhages. Benson-white differentiation is visualized. Ventricles: See above. Bones: Cranial vault is intact. Soft tissues: unremarkable Sinuses: There is no acute sinusitis. Ears and mastoids: Middle ears and mastoids are unremarkable. Orbits: Orbital contents are unremarkable. IMPRESSION: Atrophy and small vessel disease, no bleed
[2016-08-10] MEDS ORDERED: Albuterol-Ipratrop 3 mg / 0.5 (3 ml) UD IH PRN (22:22)
--- NOTE | 2016-08-10 22:38 | CP.PCM.HP ---
History of Present Illness - History of Present Illness History of Present Illness: HPI: Patient is a 75yo male with past medical history of chronic lymphedema, CKD , HTN, COPD, DMT2, diabetic neuropathy, arthritis that presented to the ED c/o generalized weakness per family. Patient is a poor historian and was said to be brought into the ED for possible stroke with hypotension per EMS. On arrival to the ED, patient's vitals were as follows: temperature 98.8F, heart rate 100bpm, blood pressure 139/75, respiratory rate 14, O2 sat 94% on room air. Patient reported left arm numbness namely at the fingertips which he admits is a chronic issue. A CT Head was done and revealed no acute intracranial abnormalities, atrophy and small vessel disease. He was subsequently admitted for treatment of his bilateral lower extremity cellulitis/chronic lymphedema. Denies chest pain, palpitations, abdominal pain ,nausea, vomiting. 12 point ROS as per HPI, otherwise negative PMHx: see above Allergies: NKDA Family Hx: Noncontributory Social Hx: lives with his ; tobacco use ~1ppd; denies alcohol use; no illicit drugs PMD: Dr. Reese Present on Admission - Present on Admission Any Indicators Present on Admission: No Past Patient History - Infectious Disease Hx of Infectious Diseases: None - Tetanus Immunizations Tetanus Immunization: Unknown - Past Social History Smoking Status: Former Smoker - CARDIAC Hx Cardiac Disorders: Yes Hx Congestive Heart Failure: Yes Hx Hypertension: Yes Hx Peripheral Edema: Yes - PULMONARY Hx Respiratory Disorders: Yes Hx Asthma: Yes Hx Bronchitis: Yes Hx Chronic Obstructive Pulmonary Disease (COPD): Yes Hx Emphysema: Yes Hx Pneumonia: Yes - NEUROLOGICAL Hx Neurological Disorder: Yes Hx Dementia: Yes - HEENT Hx HEENT Problems: Yes Hx Cataracts: Yes (left eye) - RENAL Hx Renal Failure: Yes - ENDOCRINE/METABOLIC Hx Diabetes Mellitus Type 2: Yes - HEMATOLOGICAL/ONCOLOGICAL Hx Blood Disorders: No - INTEGUMENTARY Hx Dermatological Problems: Yes Other/Comment: LYMPEDEMA BILATERAL LE, +4 pitting edema and dry leathery, painful , red lower legs - MUSCULOSKELETAL/RHEUMATOLOGICAL Hx Arthritis: Yes Hx Falls: Yes Hx Osteoarthritis: Yes Hx Unsteady Gait: Yes - GASTROINTESTINAL Hx Gastrointestinal Disorders: No - GENITOURINARY/GYNECOLOGICAL Hx Genitourinary Disorders: Yes (URINARY RETENTION) - PSYCHIATRIC Hx Psychophysiologic Disorder: Yes Hx Depression: Yes Hx Emotional Abuse: No Hx Physical Abuse: No Hx Substance Use: No - SURGICAL HISTORY Other/Comment: polyps removed in rectum - ANESTHESIA Hx Anesthesia: Yes Hx Anesthesia Reactions: No Hx Malignant Hyperthermia: No Meds Allergies/Adverse Reactions: Allergies Allergy/AdvReac Type Severity Reaction Status Date / Time No Known Allergies Allergy Verified 07/24/16 19:45 Physical Exam - Constitutional Appears: No Acute Distress - Head Exam Head Exam: ATRAUMATIC, NORMAL INSPECTION, NORMOCEPHALIC - Eye Exam Eye Exam: EOMI, PERRL - ENT Exam ENT Exam: Mucous Membranes Moist - Neck Exam Neck exam: Positive for: Normal Inspection - Respiratory Exam Respiratory Exam: Clear to Auscultation Bilateral. absent: Rales, Rhonchi, Wheezes - Cardiovascular Exam Cardiovascular Exam: RRR, +S1, +S2. absent: Gallop, Rubs - GI/Abdominal Exam GI & Abdominal Exam: Soft. absent: Firm, Guarding, Rebound, Rigid, Tenderness - Extremities Exam Additional comments: B/L lower extremity chronic venous stasis/elephantiasis; dry scaly skin; erythema - Neurological Exam Neurological exam: Alert, Oriented x3 - Psychiatric Exam Psychiatric exam: Normal Affect, Normal Mood Results - Vital Signs Recent Vital Signs: Last Vital Signs Temp 98.8 F 08/10/16 18:19 Pulse 95 H 08/10/16 22:00 Resp 18 08/10/16 22:00 BP 93/60 L 08/10/16 22:00 Pulse Ox 97 08/10/16 22:00 - Labs Result Diagrams: 08/10/16 18:45 08/10/16 18:45 Assessment & Plan - Assessment and Plan (Free Text) Plan: 75yo male with history of chronic lymphedema, CKD, HTN, COPD, DMT2, diabetic neuropathy, arthritis presents with report of left arm parasthesia, bilateral lower extremity cellulitis 1. Left arm parasthesia r/o CVA/TIA -CT Head was done which revealed atrophy and small vessel disease; no acute intracranial pathology -EKG revealed sinus tach with 1st degree AV block with occasional PVC's, LAD, RBBB, inferior infract (age undetermined) -Patient reported that his left arm parasthesia has been a chronic issue and comes and goes; however there was concern for possible CVA/TIA -Neurology consulted - Dr. Nahum 2. Bilateral lower ext cellulitis/chronic lymphedema -Patient given zosyn and vancomcin in the ED -Continue rocephin -Cultures and procalcitonin pending -afebrile, no leukocytosis 3. COPD -O2 supplementation to maintain O2 sat ~90% -BiPAP at night -Continue duoneb 4. DMT2 -Humulin ISS low dose -Levemir 15u SC daily -Fingersticks ACHS -Consistent carb diet 5. Diabetic neuropathy -Continue home gabapentin 6. CKD -Continue to monitor renal function and avoid nephrotoxic agents 7. GI/DVT Prophylaxis -Protonix/Heparin SC Patient seen and case discussed with attending, Dr. Dan - Date & Time Date: 08/10/16 Time: 23:50
[2016-08-11 04:14] LABS: PH,URINE 5.5 (4.7-8.0); URINE BILIRUBIN NEGATIVE (NEGATIVE); URINE BLOOD NEGATIVE (NEGATIVE); URINE GLUCOSE (UA) NEGATIVE (NEGATIVE); URINE LEUKOCYTE ESTERASE SMALL Leu/uL (NEGATIVE); URINE NITRATE NEGATIVE (NEGATIVE); URINE PROTEIN NEGATIVE mg/dL (<30 mg/dL); URINE UROBILINOGEN 0.2 E.U./dL (<1 E.U./dL)
[2016-08-11 04:31] LABS: URINE COLOR YELLOW (YELLOW)
[2016-08-11 05:20] LABS: URINE APPEARANCE SL CLOUDY (CLEAR)
[2016-08-11 05:21] LABS: URINE RBC 0 - 2 /hpf (0-2); URINE WBC 25 - 30 /hpf (0-6)
[2016-08-11 05:22] LABS: URINE EPITHELIAL CELLS 0 - 2 /hpf (0-5)
[2016-08-11 05:59] VITALS: O2SAT 99
[2016-08-11 07:36] LABS: BASO # 0.02 K/mm3 (0.0-2.0); BASO % 0.2 % (0.0-3.0); EOS # 0.1 (0.0-0.7); EOS % 1.4 % (1.5-5.0); GRAN # 7.05 (1.4-6.5); GRAN % 73.8 % (50.0-68.0); HEMOGLOBIN 10.9 gm/dL (14.0-18.0); LYMPH # 1.6 (1.2-3.4); LYMPH % 16.9 % (22.0-35.0); MEAN CELL VOLUME 95.8 fL (80.0-105.0); MEAN CORPUSCULAR HEMOGLOBIN 30.5 pg (25.0-35.0); MEAN CORPUSCULAR HGB CONC 31.9 g/dl (31.0-37.0); MEAN PLATELET VOLUME 11.6 fl (7.0-11.0); MONO # 0.7 (0.1-0.6); MONO % 7.7 % (1.0-6.0); PLATELET COUNT 169 10^3/uL (120.0-450.0); RBC 3.57 10^6/uL (3.5-6.1); RED CELL DISTRIBUTION WIDTH 13.4 % (11.5-14.5); WHITE BLOOD COUNT 9.6 10^3/ul (4.5-11.0)
[2016-08-11 07:45] LABS: ALB/GLOB RATIO 1.2 (1.1-1.8); ALBUMIN 3.4 g/dL (3.0-4.8); CALCIUM 8.4 mg/dL (8.4-10.5)
[2016-08-11] MEDS: Insulin Reg-LOW-Coverage SC SCH ×3 (07:50→21:37)
--- NOTE | 2016-08-11 08:58 | CP.PCM.PN ---
<Issac Mohan - Last Filed: 08/11/16 08:54> Subjective - Date & Time of Evaluation Date of Evaluation: 08/11/16 Time of Evaluation: 08:54 - Subjective Subjective: Patient seen and examined. States he has numbness to the distal 2nd and 3rd digits of left hand. He is complaining of left sided back pain. No fever, chills , shortness of breath, chest pain, n/vd. He is afebrile. Objective - Vital Signs/Intake and Output Vital Signs (last 24 hours): Temp Pulse Resp BP Pulse Ox 98.2 F 70 18 120/64 99 08/11/16 05:59 08/11/16 05:59 08/11/16 05:59 08/11/16 05:59 08/11/16 05:59 Intake and Output: 08/11/16 08/11/16 06:59 18:59 Intake Total 240 Output Total 300 Balance -60 - Medications Medications: Current Medications Acetaminophen (Tylenol 325mg Tab) 650 mg PO Q4H PRN PRN Reason: Pain, moderate (4-7) Last Admin: 08/11/16 04:29 Dose: 650 mg Albuterol/Ipratropium (Duoneb 3 Mg/0.5 Mg (3 Ml) Ud) 3 ml IH Q2H PRN PRN Reason: Shortness of Breath Atorvastatin Calcium (Lipitor) 20 mg PO DAILY [facility] Clopidogrel Bisulfate (Plavix) 75 mg PO DAILY [facility] Docusate Sodium (Colace) 100 mg PO BID [facility] Finasteride (Proscar) 5 mg PO DAILY [facility] Furosemide (Lasix) 40 mg PO QOTHERDAY PRN PRN Reason: Other Gabapentin (Neurontin) 300 mg PO HS [facility] PRN Reason: Protocol Heparin Sodium (Porcine) (Heparin) 5,000 units SC Q12 [facility] PRN Reason: Protocol Ceftriaxone Sodium (Rocephin 1 Gram Ivpb) 1 gm in 100 mls @ 100 mls/hr IVPB DAILY [facility] PRN Reason: Protocol Insulin Detemir (Levemir) 15 unit SC DAILY [facility] Insulin Human Regular (Humulin R Low) 0 units SC ACHS [facility] PRN Reason: Protocol Last Admin: 08/11/16 07:50 Dose: Not Given Magnesium Oxide (Mag-Ox) 400 mg PO DAILY [facility] Pantoprazole Sodium (Protonix Ec Tab) 40 mg PO 0600 [facility] Roflumilast (Daliresp) 500 mcg PO DAILY [facility] Sildenafil Citrate (Revatio) 20 mg PO TID [facility] Tamsulosin HCl (Flomax) 0.4 mg PO DAILY [facility] - Labs Labs: 08/11/16 07:00 08/11/16 07:00 PT 11.3 Seconds (9.9-11.8) 08/10/16 18:45 INR 1.05 (0.93-1.08) 08/10/16 18:45 APTT 28.0 Seconds (23.7-30.8) 08/10/16 18:45 - Constitutional Appears: Non-toxic, No Acute Distress - Head Exam Head Exam: ATRAUMATIC, NORMOCEPHALIC - Eye Exam Eye Exam: EOMI, PERRL - ENT Exam ENT Exam: Mucous Membranes Moist - Neck Exam Neck Exam: Full ROM, Normal Inspection - Respiratory Exam Respiratory Exam: Clear to Ausculation Bilateral. absent: Rales, Rhonchi, Wheezes - Cardiovascular Exam Cardiovascular Exam: REGULAR RHYTHM, +S1, +S2 - GI/Abdominal Exam GI & Abdominal Exam: Soft. absent: Tenderness - Extremities Exam Extremities Exam: absent: Calf Tenderness, Pedal Edema - Neurological Exam Neurological Exam: Alert, Awake, Oriented x3 - Psychiatric Exam Psychiatric exam: Normal Affect, Normal Mood - Skin Skin Exam: Dry, Warm Assessment and Plan - Assessment and Plan (Free Text) Assessment: 75 y/o male presenting with multiple complaints including parasthesias to left hand, back discomfort. Found to have lower extremity cellulitis 1. Left arm parasthesia r/o CVA/TIA -CT Head was done which revealed atrophy and small vessel disease; no acute intracranial pathology -EKG revealed sinus tach with 1st degree AV block with occasional PVC's, LAD, RBBB, inferior infract (age undetermined) -Patient reported that his left arm parasthesia has been a chronic issue and comes and goes; however there was concern for possible CVA/TIA -Neurology consulted - Dr. Sidhu 2. Bilateral lower ext cellulitis/chronic lymphedema -Patient given zosyn and vancomcin in the ED -Continue rocephin -Cultures and procalcitonin pending -afebrile, no leukocytosis 3. COPD -O2 supplementation to maintain O2 sat ~90% -BiPAP at night -Continue duoneb 4. DMT2 -Humulin ISS low dose -Levemir 15u SC daily -Fingersticks ACHS -Consistent carb diet 5. Diabetic neuropathy -Continue home gabapentin 6. CKD -Continue to monitor renal function and avoid nephrotoxic agents 7. GI/DVT Prophylaxis -Protonix/Heparin SC <Renetta Mcbride - Last Filed: 08/11/16 22:38> Objective - Vital Signs/Intake and Output Vital Signs (last 24 hours): Temp Pulse Resp BP Pulse Ox 98.2 F 70 18 120/64 99 08/11/16 05:59 08/11/16 05:59 08/11/16 05:59 08/11/16 05:59 08/11/16 05:59 - Medications Medications: Current Medications Acetaminophen (Tylenol 325mg Tab) 650 mg PO Q4H PRN PRN Reason: Pain, moderate (4-7) Last Admin: 08/11/16 04:29 Dose: 650 mg Albuterol/Ipratropium (Duoneb 3 Mg/0.5 Mg (3 Ml) Ud) 3 ml IH Q2H PRN PRN Reason: Shortness of Breath Aspirin (Ecotrin) 81 mg PO DAILY [facility] Last Admin: 08/11/16 10:38 Dose: 81 mg Atorvastatin Calcium (Lipitor) 20 mg PO DAILY [facility] Last Admin: 08/11/16 10:38 Dose: 20 mg Clopidogrel Bisulfate (Plavix) 75 mg PO DAILY [facility] Last Admin: 08/11/16 10:38 Dose: 75 mg Docusate Sodium (Colace) 100 mg PO BID [facility] Last Admin: 08/11/16 10:37 Dose: 100 mg Finasteride (Proscar) 5 mg PO DAILY [facility] Last Admin: 08/11/16 10:37 Dose: 5 mg Furosemide (Lasix) 40 mg PO QOTHERDAY PRN PRN Reason: Other Gabapentin (Neurontin) 300 mg PO HS [facility] PRN Reason: Protocol Last Admin: 08/11/16 21:55 Dose: 300 mg Heparin Sodium (Porcine) (Heparin) 5,000 units SC Q12 [facility] PRN Reason: Protocol Last Admin: 08/11/16 21:55 Dose: 5,000 units Ceftriaxone Sodium (Rocephin 1 Gram Ivpb) 1 gm in 100 mls @ 100 mls/hr IVPB DAILY [facility] PRN Reason: Protocol Last Admin: 08/11/16 10:31 Dose: 100 mls/hr Sodium Chloride (Sodium Chloride 0.9%) 1,000 mls @ 100 mls/hr IV .Q10H [facility] Last Admin: 08/11/16 10:28 Dose: 100 mls/hr Insulin Detemir (Levemir) 15 unit SC DAILY [facility] Last Admin: 08/11/16 10:17 Dose: Not Given Insulin Human Regular (Humulin R Low) 0 units SC ACHS [facility] PRN Reason: Protocol Last Admin: 08/11/16 21:37 Dose: Not Given Magnesium Oxide (Mag-Ox) 400 mg PO DAILY [facility] Last Admin: 08/11/16 10:37 Dose: 400 mg Nicotine (Nicoderm Cq) 1 patch TD DAILY [facility] Pantoprazole Sodium (Protonix Ec Tab) 40 mg PO 0600 [facility] Last Admin: 08/11/16 10:38 Dose: 40 mg Roflumilast (Daliresp) 500 mcg PO DAILY [facility] Last Admin: 08/11/16 10:37 Dose: 500 mcg Sildenafil Citrate (Revatio) 20 mg PO TID [facility] Last Admin: 08/11/16 13:47 Dose: 20 mg Tamsulosin HCl (Flomax) 0.4 mg PO DAILY [facility] Last Admin: 08/11/16 10:38 Dose: 0.4 mg - Labs Labs: 08/11/16 07:00 08/11/16 07:00 PT 11.3 Seconds (9.9-11.8) 08/10/16 18:45 INR 1.05 (0.93-1.08) 08/10/16 18:45 APTT 28.0 Seconds (23.7-30.8) 08/10/16 18:45 Attending/Attestation - Attestation I have personally seen and examined this patient.: Yes I have fully participated in the care of the patient.: Yes I have reviewed all pertinent clinical information, including history, physical exam and plan: Yes Notes (Text): 08/11/16 22:35 Patient seen and examined at bedside with the resident. Denies any new complaints. L/E changes are chronic and he was recently treated for the same with antibiotics. Tolerating PO diet well. Case d/w Neurology and aspiring added to his regimen otherwise no Neuro deficits. Agree with BP parameters and the plan outlined by the resident
[2016-08-11] MEDS ORDERED: Vancomycin 1gm in NS 250ml 1 GM/250 ML BAG IVPB SCH (10:00)
[2016-08-11] MEDS: Insulin Detemir 100 units/ml Vial (Levemir) SC SCH (10:17)
[2016-08-11] MEDS: Sodium Chloride 0.9% 1,000 ML IV SCH (10:28)
[2016-08-11] MEDS: cefTRIAXone 1 gm 1 GM/100 ML BAG IVPB SCH (10:31)
[2016-08-11] MEDS: Magnesium Oxide 400 mg Tab UD PO SCH (10:37)
[2016-08-11] MEDS: Sildenafil 20 MG TAB PO SCH ×2 (10:37→13:47)
[2016-08-11] MEDS: Pantoprazole 40 mg EC Tab PO SCH (10:38)
[2016-08-11 10:45] LABS: HDL CHOLESTEROL 22 mg/dL (29-60)
[2016-08-11 10:56] LABS: LDL CHOLESTEROL 44 mg/dL (0-129)
--- NOTE | 2016-08-11 11:01 | RAD ---
HISTORY: Weakness. Technique: Single view portable semi erect @ 18:35. COMPARISON: 12/06/2015 FINDINGS: LUNGS: No active pulmonary disease. PLEURA: No significant pleural effusion identified, no pneumothorax apparent. CARDIOVASCULAR: No radiographic findings to suggest acute or significant cardiovascular disease. OSSEOUS STRUCTURES: No significant abnormalities. VISUALIZED UPPER ABDOMEN: Normal. OTHER FINDINGS: None. IMPRESSION: No active disease. No significant interval change compared to the prior examination(s).
[2016-08-12 07:35] VITALS: BP 97/54; PULSE 103; RESP 20; TEMP 99.9
[2016-08-12] MEDS: Insulin Reg-LOW-Coverage SC SCH ×2 (08:04→11:34)
[2016-08-12] MEDS: Pantoprazole 40 mg EC Tab PO SCH (08:04)
[2016-08-12 10:34] LABS: BASO # 0.02 K/mm3 (0.0-2.0); BASO % 0.2 % (0.0-3.0); EOS % 0.1 % (1.5-5.0); GRAN # 9.17 (1.4-6.5); GRAN % 84.3 % (50.0-68.0); HEMOGLOBIN 10.8 gm/dL (14.0-18.0); MEAN CELL VOLUME 97.7 fL (80.0-105.0); MEAN CORPUSCULAR HEMOGLOBIN 30.5 pg (25.0-35.0); MEAN CORPUSCULAR HGB CONC 31.2 g/dl (31.0-37.0); MEAN PLATELET VOLUME 12.1 fl (7.0-11.0); MONO # 0.7 (0.1-0.6); MONO % 6.4 % (1.0-6.0); PLATELET COUNT 164 10^3/uL (120.0-450.0); RBC 3.54 10^6/uL (3.5-6.1); RED CELL DISTRIBUTION WIDTH 13.6 % (11.5-14.5); WHITE BLOOD COUNT 10.9 10^3/ul (4.5-11.0)
[2016-08-12 10:37] LABS: CALCIUM 8.5 mg/dL (8.4-10.5)
[2016-08-12 11:06] LABS: TROPONIN I 0.05 ng/mL
[2016-08-12] MEDS: Insulin Detemir 100 units/ml Vial (Levemir) SC SCH (11:32)
[2016-08-12] MEDS: Sildenafil 20 MG TAB PO SCH (11:32)
[2016-08-12] MEDS: Magnesium Oxide 400 mg Tab UD PO SCH (11:32)
[2016-08-12] MEDS: cefTRIAXone 1 gm 1 GM/100 ML BAG IVPB SCH (11:35)
[2016-08-12] MEDS: Sodium Chloride 0.9% 1,000 ML IV SCH (11:36)
--- NOTE | 2016-08-12 15:23 | CP.PCM.DIS ---
<Issac Mohan - Last Filed: 08/12/16 15:18> Provider - Provider Date of Admission: 08/10/16 21:00 Attending physician: Bridgette Hair MD Primary care physician: Manoj Reese MD Consults: Dr. Espinoza - Neurology Time Spent in preparation of Discharge (in minutes): 35 Diagnosis - Discharge Diagnosis (1) Cellulitis Status: Chronic Hospital Course - Lab Results Lab Results: Micro Results 08/11/16 04:00 Urine Urine Culture - Final 10-50,000 CFU/ML. MULTIPLE SPECIES. PROBABLE CONTAMINATION. Most Recent Lab Values WBC 10.9 10^3/ul (4.5-11.0) 08/12/16 10:19 RBC 3.54 10^6/uL (3.5-6.1) 08/12/16 10:19 Hgb 10.8 gm/dL (14.0-18.0) L 08/12/16 10:19 Hct 34.6 % (42.0-52.0) L 08/12/16 10:19 MCV 97.7 fL (80.0-105.0) 08/12/16 10:19 MCH 30.5 pg (25.0-35.0) 08/12/16 10:19 MCHC 31.2 g/dl (31.0-37.0) 08/12/16 10:19 RDW 13.6 % (11.5-14.5) 08/12/16 10:19 Plt Count 164 10^3/uL (120.0-450.0) 08/12/16 10:19 MPV 12.1 fl (7.0-11.0) H 08/12/16 10:19 Gran % 84.3 % (50.0-68.0) H 08/12/16 10:19 Lymph % (Auto) 9.0 % (22.0-35.0) L 08/12/16 10:19 Patrick % (Auto) 6.4 % (1.0-6.0) H 08/12/16 10:19 Eos % (Auto) 0.1 % (1.5-5.0) L 08/12/16 10:19 Baso % (Auto) 0.2 % (0.0-3.0) 08/12/16 10:19 Gran # 9.17 (1.4-6.5) H 08/12/16 10:19 Lymph # 1.0 (1.2-3.4) L 08/12/16 10:19 Patrick # 0.7 (0.1-0.6) H 08/12/16 10:19 Eos # 0.0 (0.0-0.7) 08/12/16 10:19 Baso # 0.02 K/mm3 (0.0-2.0) 08/12/16 10:19 PT 11.3 Seconds (9.9-11.8) 08/10/16 18:45 INR 1.05 (0.93-1.08) 08/10/16 18:45 APTT 28.0 Seconds (23.7-30.8) 08/10/16 18:45 pO2 49 mm/Hg (30-55) 08/10/16 18:45 VBG pH 7.40 (7.32-7.43) 08/10/16 18:45 VBG pCO2 62.0 (40-60) H 08/10/16 18:45 VBG HCO3 38.4 mmol/l (21-28) H 08/10/16 18:45 VBG Total CO2 40.3 mmol.L (22-28) H 08/10/16 18:45 VBG O2 Sat (Calc) 90.0 % (40-65) H 08/10/16 18:45 VBG Base Excess 11.4 mmol/L (0.0-2.0) H 08/10/16 18:45 VBG Potassium 4.1 mmol/L (3.6-5.2) 08/10/16 18:45 Sodium 139.0 mmol/L (132-148) 08/10/16 18:45 Chloride 101.0 mmol/L (98-107) 08/10/16 18:45 Glucose 63 mg/dl (75-110) L 08/10/16 18:45 Lactate 1.5 mmol/L (0.7-2.1) 08/10/16 18:45 FiO2 21.0 % 08/10/16 18:45 Sodium 134 mmol/L (132-148) 08/12/16 10:19 Potassium 4.4 mmol/L (3.6-5.0) 08/12/16 10:19 Chloride 98 mmol/L (95-110) 08/12/16 10:19 Carbon Dioxide 31 mmol/L (21-33) 08/12/16 10:19 Anion Gap 9 (10-20) L 08/12/16 10:19 BUN 22 mg/dL (7-21) H 08/12/16 10:19 Creatinine 1.5 mg/dL (0.5-1.4) H 08/12/16 10:19 Est GFR ( Amer) 55 08/12/16 10:19 Est GFR (Non-Af Amer) 46 08/12/16 10:19 POC Glucose (mg/dL) 266 mg/dL (65-110) H 08/12/16 11:26 Random Glucose 264 mg/dL (70-110) H 08/12/16 10:19 Calcium 8.5 mg/dL (8.4-10.5) 08/12/16 10:19 Magnesium 1.7 mg/dL (1.7-2.2) 08/10/16 18:45 Total Bilirubin 0.3 mg/dL (0.2-1.3) 08/11/16 07:00 AST 16 U/L (15-59) 08/11/16 07:00 ALT 23 U/L (7-56) 08/11/16 07:00 Alkaline Phosphatase 58 U/L (38-133) 08/11/16 07:00 Lactate Dehydrogenase 316 U/L (333-699) L 08/10/16 18:45 Total Creatine Kinase 21 U/L (35-230) L 08/10/16 18:45 Troponin I 0.05 ng/mL D 08/12/16 10:19 Total Protein 6.3 g/dL (5.8-8.3) 08/11/16 07:00 Albumin 3.4 g/dL (3.0-4.8) 08/11/16 07:00 Globulin 2.9 gm/dL 08/11/16 07:00 Albumin/Globulin Ratio 1.2 (1.1-1.8) 08/11/16 07:00 Triglycerides 147 mg/dL (35-160) 08/11/16 10:20 Cholesterol 92 mg/dL (130-200) L 08/11/16 10:20 LDL Cholesterol Direct 44 mg/dL (0-129) 08/11/16 10:20 HDL Cholesterol 22 mg/dL (29-60) L 08/11/16 10:20 Procalcitonin 0.06 NG/ML (0.19-0.49) L 08/11/16 00:02 Venous Blood Potassium 4.1 mmol/L (3.6-5.2) 08/10/16 18:45 Urine Color Yellow (YELLOW) 08/11/16 04:00 Urine Appearance Sl cloudy (CLEAR) 08/11/16 04:00 Urine pH 5.5 (4.7-8.0) 08/11/16 04:00 Ur Specific [place] 1.020 (1.005-1.035) 08/11/16 04:00 Urine Protein Negative mg/dL (<30 mg/dL) 08/11/16 04:00 Urine Glucose (UA) Negative mg/dL (NEGATIVE) 08/11/16 04:00 Urine Ketones Negative mg/dL (NEGATIVE) 08/11/16 04:00 Urine Blood Negative (NEGATIVE) 08/11/16 04:00 Urine Nitrate Negative (NEGATIVE) 08/11/16 04:00 Urine Bilirubin Negative (NEGATIVE) 08/11/16 04:00 Urine Urobilinogen 0.2 E.U./dL (<1 E.U./dL) 08/11/16 04:00 Ur Leukocyte Esterase Small [place]/uL (NEGATIVE) H 08/11/16 04:00 Urine RBC 0 - 2 /hpf (0-2) 08/11/16 04:00 Urine WBC 25 - 30 /hpf (0-6) 08/11/16 04:00 Ur Epithelial Cells 0 - 2 /hpf (0-5) 08/11/16 04:00 - Hospital Course Hospital Course: Patient is a 75yo male with past medical history of chronic lymphedema, CKD, HTN, COPD, DMT2, diabetic neuropathy, arthritis that presented to the ED c/o generalized weakness per family. Patient is a poor historian and was said to be brought into the ED for possible stroke with hypotension per EMS. On arrival to the ED, patient's vitals were as follows: temperature 98.8F, heart rate 100bpm, blood pressure 139/75, respiratory rate 14, O2 sat 94% on room air. Patient reported left arm numbness namely at the fingertips which he admits is a chronic issue. A CT Head was done and revealed no acute intracranial abnormalities, atrophy and small vessel disease. He was subsequently admitted for treatment of his bilateral lower extremity cellulitis/chronic lymphedema. Denies chest pain, palpitations, abdominal pain ,nausea, vomiting. The patient was started on empiric antibiotics for cellulitis which is chronic. He was continued on lasix for treatment of chronic LE edema. Patient remained afebrile. Patient was complaining of parasthesias to the distal fingertips. Neurology was consulted and determined this to be due to diabetic neuropathy. This patient has many chronic medical problems which were explained to him. It was explained to the patient that he needs to f/u with Dr. Reese for these issues. The patient is discharged with a course of Keflex. He is instructed to see Dr. Reese in 3 to 4 days. Discharge Exam - Head Exam Head Exam: ATRAUMATIC, NORMOCEPHALIC - Eye Exam Eye Exam: EOMI, PERRL - ENT Exam ENT Exam: Mucous Membranes Moist - Respiratory Exam Respiratory Exam: Clear to PA & Lateral. absent: Rales, Rhonchi, Wheezes - Cardiovascular Exam Cardiovascular Exam: REGULAR RHYTHM, +S1, +S2 - GI/Abdominal Exam GI & Abdominal Exam: Normal Bowel Sounds, Unremarkable - Extremities Exam Extremities exam: full ROM, pedal pulses present - Neurological Exam Neurological exam: Alert, Oriented x3 - Skin Skin Exam: Dry, Warm Discharge Plan - Discharge Medications Prescriptions: Cephalexin [cephalexin] 500 mg PO BID #10 cap - Follow Up Plan Condition: GOOD Disposition: HOME/ ROUTINE Instructions: Cellulitis (DC), Cellulitis (GEN) Additional Instructions: Please see Dr. Reese in 3 to 4 days for continues treatment of your chronic medical problems. You are prescribed and antibiotic. Please take 1 tablet twice a day for 5 days total. Referrals: Manoj Reese MD [Primary Care Provider] - <Renetta Mcbride - Last Filed: 08/12/16 18:36> Provider - Provider Date of Admission: 08/10/16 21:00 Attending physician: Bridgette Hair MD Primary care physician: Manoj Reese MD Hospital Course - Lab Results Lab Results: Micro Results 08/11/16 04:00 Urine Urine Culture - Final 10-50,000 CFU/ML. MULTIPLE SPECIES. PROBABLE CONTAMINATION. Most Recent Lab Values WBC 10.9 10^3/ul (4.5-11.0) 08/12/16 10:19 RBC 3.54 10^6/uL (3.5-6.1) 08/12/16 10:19 Hgb 10.8 gm/dL (14.0-18.0) L 08/12/16 10:19 Hct 34.6 % (42.0-52.0) L 08/12/16 10:19 MCV 97.7 fL (80.0-105.0) 08/12/16 10:19 MCH 30.5 pg (25.0-35.0) 08/12/16 10:19 MCHC 31.2 g/dl (31.0-37.0) 08/12/16 10:19 RDW 13.6 % (11.5-14.5) 08/12/16 10:19 Plt Count 164 10^3/uL (120.0-450.0) 08/12/16 10:19 MPV 12.1 fl (7.0-11.0) H 08/12/16 10:19 Gran % 84.3 % (50.0-68.0) H 08/12/16 10:19 Lymph % (Auto) 9.0 % (22.0-35.0) L 08/12/16 10:19 Patrick % (Auto) 6.4 % (1.0-6.0) H 08/12/16 10:19 Eos % (Auto) 0.1 % (1.5-5.0) L 08/12/16 10:19 Baso % (Auto) 0.2 % (0.0-3.0) 08/12/16 10:19 Gran # 9.17 (1.4-6.5) H 08/12/16 10:19 Lymph # 1.0 (1.2-3.4) L 08/12/16 10:19 Patrick # 0.7 (0.1-0.6) H 08/12/16 10:19 Eos # 0.0 (0.0-0.7) 08/12/16 10:19 Baso # 0.02 K/mm3 (0.0-2.0) 08/12/16 10:19 PT 11.3 Seconds (9.9-11.8) 08/10/16 18:45 INR 1.05 (0.93-1.08) 08/10/16 18:45 APTT 28.0 Seconds (23.7-30.8) 08/10/16 18:45 pO2 49 mm/Hg (30-55) 08/10/16 18:45 VBG pH 7.40 (7.32-7.43) 08/10/16 18:45 VBG pCO2 62.0 (40-60) H 08/10/16 18:45 VBG HCO3 38.4 mmol/l (21-28) H 08/10/16 18:45 VBG Total CO2 40.3 mmol.L (22-28) H 08/10/16 18:45 VBG O2 Sat (Calc) 90.0 % (40-65) H 08/10/16 18:45 VBG Base Excess 11.4 mmol/L (0.0-2.0) H 08/10/16 18:45 VBG Potassium 4.1 mmol/L (3.6-5.2) 08/10/16 18:45 Sodium 139.0 mmol/L (132-148) 08/10/16 18:45 Chloride 101.0 mmol/L (98-107) 08/10/16 18:45 Glucose 63 mg/dl (75-110) L 08/10/16 18:45 Lactate 1.5 mmol/L (0.7-2.1) 08/10/16 18:45 FiO2 21.0 % 08/10/16 18:45 Sodium 134 mmol/L (132-148) 08/12/16 10:19 Potassium 4.4 mmol/L (3.6-5.0) 08/12/16 10:19 Chloride 98 mmol/L (95-110) 08/12/16 10:19 Carbon Dioxide 31 mmol/L (21-33) 08/12/16 10:19 Anion Gap 9 (10-20) L 08/12/16 10:19 BUN 22 mg/dL (7-21) H 08/12/16 10:19 Creatinine 1.5 mg/dL (0.5-1.4) H 08/12/16 10:19 Est GFR ( Amer) 55 08/12/16 10:19 Est GFR (Non-Af Amer) 46 08/12/16 10:19 POC Glucose (mg/dL) 266 mg/dL (65-110) H 08/12/16 11:26 Random Glucose 264 mg/dL (70-110) H 08/12/16 10:19 Calcium 8.5 mg/dL (8.4-10.5) 08/12/16 10:19 Magnesium 1.7 mg/dL (1.7-2.2) 08/10/16 18:45 Total Bilirubin 0.3 mg/dL (0.2-1.3) 08/11/16 07:00 AST 16 U/L (15-59) 08/11/16 07:00 ALT 23 U/L (7-56) 08/11/16 07:00 Alkaline Phosphatase 58 U/L (38-133) 08/11/16 07:00 Lactate Dehydrogenase 316 U/L (333-699) L 08/10/16 18:45 Total Creatine Kinase 21 U/L (35-230) L 08/10/16 18:45 Troponin I 0.05 ng/mL D 08/12/16 10:19 Total Protein 6.3 g/dL (5.8-8.3) 08/11/16 07:00 Albumin 3.4 g/dL (3.0-4.8) 08/11/16 07:00 Globulin 2.9 gm/dL 08/11/16 07:00 Albumin/Globulin Ratio 1.2 (1.1-1.8) 08/11/16 07:00 Triglycerides 147 mg/dL (35-160) 08/11/16 10:20 Cholesterol 92 mg/dL (130-200) L 08/11/16 10:20 LDL Cholesterol Direct 44 mg/dL (0-129) 08/11/16 10:20 HDL Cholesterol 22 mg/dL (29-60) L 08/11/16 10:20 Procalcitonin 0.06 NG/ML (0.19-0.49) L 08/11/16 00:02 Venous Blood Potassium 4.1 mmol/L (3.6-5.2) 08/10/16 18:45 Urine Color Yellow (YELLOW) 08/11/16 04:00 Urine Appearance Sl cloudy (CLEAR) 08/11/16 04:00 Urine pH 5.5 (4.7-8.0) 08/11/16 04:00 Ur Specific [place] 1.020 (1.005-1.035) 08/11/16 04:00 Urine Protein Negative mg/dL (<30 mg/dL) 08/11/16 04:00 Urine Glucose (UA) Negative mg/dL (NEGATIVE) 08/11/16 04:00 Urine Ketones Negative mg/dL (NEGATIVE) 08/11/16 04:00 Urine Blood Negative (NEGATIVE) 08/11/16 04:00 Urine Nitrate Negative (NEGATIVE) 08/11/16 04:00 Urine Bilirubin Negative (NEGATIVE) 08/11/16 04:00 Urine Urobilinogen 0.2 E.U./dL (<1 E.U./dL) 08/11/16 04:00 Ur Leukocyte Esterase Small [place]/uL (NEGATIVE) H 08/11/16 04:00 Urine RBC 0 - 2 /hpf (0-2) 08/11/16 04:00 Urine WBC 25 - 30 /hpf (0-6) 08/11/16 04:00 Ur Epithelial Cells 0 - 2 /hpf (0-5) 08/11/16 04:00 Attending/Attestation - Attestation I have personally seen and examined this patient.: Yes I have fully participated in the care of the patient.: Yes I have reviewed all pertinent clinical information, including history, physical exam and plan: Yes Notes (Text): 08/12/16 18:33 Patient seen and examined at bedside with the residents. Sitting in chair comfortably, awake/verbal and alert. Denies any new complaints. Labs reviewed and Crcl is at baseline levels, electrolytes stable. Afebrile. Neurology note reviewed.Follow up plan discussed with the patient in detail. Agree with the plan outlined by the resident above including a course of PO antibiotics for his chronic stasis/cellulitis. Encouraged to keep himself hydrated, compliance with medications including aspirin. Stable for discharge home today.
--- NOTE | 2016-08-12 17:29 | CP.PCM.CON ---
History of Present Illness - History of Present Illness History of Present Illness: Mr. Alvarez is a 75-year-old man with multiple medical co-morbidities who states that he has been feeling unwell for the last several days. He has been feeling light-headed and complained of generalized weakness. He measured his blood pressure at home, and it was 80/40 mm Hg. He felt dizzy and wanted to come to the ED for evaluation. He has bilateral lower extremity chronic lymphedema and celluliltis. He was receiving fluids and said that he's feeling much better. He had no continued complaints of weakness. Review of Systems - Review of Systems All systems: reviewed and no additional remarkable complaints except Past Patient History - Infectious Disease Hx of Infectious Diseases: None - Tetanus Immunizations Tetanus Immunization: Unknown - Past Social History Smoking Status: Former Smoker - CARDIAC Hx Cardiac Disorders: Yes Hx Congestive Heart Failure: Yes Hx Hypertension: Yes Hx Peripheral Edema: Yes - PULMONARY Hx Respiratory Disorders: Yes Hx Asthma: Yes Hx Bronchitis: Yes Hx Chronic Obstructive Pulmonary Disease (COPD): Yes Hx Emphysema: Yes Hx Pneumonia: Yes - NEUROLOGICAL Hx Neurological Disorder: Yes Hx Dementia: Yes - HEENT Hx HEENT Problems: Yes Hx Cataracts: Yes (left eye) - RENAL Hx Renal Failure: Yes - ENDOCRINE/METABOLIC Hx Diabetes Mellitus Type 2: Yes - HEMATOLOGICAL/ONCOLOGICAL Hx Blood Disorders: No - INTEGUMENTARY Hx Dermatological Problems: Yes Other/Comment: LYMPEDEMA BILATERAL LE, +4 pitting edema and dry leathery, painful , red lower legs - MUSCULOSKELETAL/RHEUMATOLOGICAL Hx Arthritis: Yes Hx Falls: Yes Hx Osteoarthritis: Yes Hx Unsteady Gait: Yes - GASTROINTESTINAL Hx Gastrointestinal Disorders: No - GENITOURINARY/GYNECOLOGICAL Hx Genitourinary Disorders: Yes (URINARY RETENTION) - PSYCHIATRIC Hx Psychophysiologic Disorder: Yes Hx Depression: Yes Hx Emotional Abuse: No Hx Physical Abuse: No Hx Substance Use: No - SURGICAL HISTORY Other/Comment: polyps removed in rectum - ANESTHESIA Hx Anesthesia: Yes Hx Anesthesia Reactions: No Hx Malignant Hyperthermia: No Meds Home Medications: Home Medication List Medication Instructions Recorded Confirmed Type Cephalexin [cephalexin] 500 mg PO BID #10 cap 08/12/16 Rx Allergies/Adverse Reactions: Allergies Allergy/AdvReac Type Severity Reaction Status Date / Time No Known Allergies Allergy Verified 07/24/16 19:45 Physical Exam - Constitutional Appears: Well - Head Exam Head Exam: ATRAUMATIC, NORMAL INSPECTION, NORMOCEPHALIC - Eye Exam Eye Exam: EOMI, Normal appearance, PERRL - ENT Exam ENT Exam: Mucous Membranes Moist, Normal Exam - Neck Exam Neck exam: Positive for: Normal Inspection - Respiratory Exam Respiratory Exam: Clear to Auscultation Bilateral, NORMAL BREATHING PATTERN - Cardiovascular Exam Cardiovascular Exam: REGULAR RHYTHM, +S1, +S2 - GI/Abdominal Exam GI & Abdominal Exam: Normal Bowel Sounds, Soft. absent: Tenderness - Rectal Exam Rectal Exam: Deferred - Back Exam Back exam: NORMAL INSPECTION - Neurological Exam Neurological exam: Alert, CN II-XII Intact, Normal Gait, Oriented x3, Reflexes Normal - Expanded Neurological Exam Expanded Patient oriented to: person, place, time Cranial nerves: EOM's Intact: Normal, Facial Palsey w/Forehead Movement: Normal , Gag Reflex: Normal, Nystagmus: Normal Cerebellar Function: Finger to Nose: Normal Upper motor neuron: Babinski Sign: Normal Sensory exam: Lower Extremity Light Touch: Normal, Lower Extremity Pin Prick: Normal, Upper Extremity Light Touch: Normal, Upper Extremity Pin Prick: Normal Neuro motor strength exam: Left Upper Extremity: 5, Right Upper Extremity: 5, Left Lower Extremity: 4, Right Lower Extremity: 4 DTR: Achilles Tendon Left: 2+, Achilles Tendon Right: 2+, Bicep Left: 2+, Bicep Right: 2+, Brachioradialis Left: 2+, Brachioradialis Right: 2+, Patellar Left: 2 +, Patellar Right: 2+, Tricep Left: 2+, Tricep Right: 2+ - Psychiatric Exam Psychiatric exam: Normal Affect, Normal Mood - Skin Skin Exam: Intact, Warm Results - Vital Signs Recent Vital Signs: Last Vital Signs Temp 99.9 F H 08/12/16 07:34 Pulse 103 H 08/12/16 07:34 Resp 20 08/12/16 07:34 BP 97/54 L 08/12/16 07:34 Pulse Ox 99 08/12/16 07:34 - Labs Result Diagrams: 08/12/16 10:19 08/12/16 10:19 Labs: Laboratory Results - last 24 hr 08/11/16 08/11/16 08/12/16 18:00 21:09 07:28 WBC RBC Hgb Hct MCV MCH MCHC RDW Plt Count MPV Gran % Lymph % (Auto) Owen % (Auto) Eos % (Auto) Baso % (Auto) Gran # Lymph # Owen # Eos # Baso # Sodium Potassium Chloride Carbon Dioxide Anion Gap BUN Creatinine Est GFR ( Amer) Est GFR (Non-Af Amer) POC Glucose (mg/dL) 192 H 248 H Random Glucose Calcium Troponin I 0.04 08/12/16 08/12/16 08/12/16 10:19 10:19 11:26 WBC 10.9 RBC 3.54 Hgb 10.8 L Hct 34.6 L MCV 97.7 MCH 30.5 MCHC 31.2 RDW 13.6 Plt Count 164 MPV 12.1 H Gran % 84.3 H Lymph % (Auto) 9.0 L Owen % (Auto) 6.4 H Eos % (Auto) 0.1 L Baso % (Auto) 0.2 Gran # 9.17 H Lymph # 1.0 L Owen # 0.7 H Eos # 0.0 Baso # 0.02 Sodium 134 Potassium 4.4 Chloride 98 Carbon Dioxide 31 Anion Gap 9 L BUN 22 H Creatinine 1.5 H Est GFR ( Amer) 55 Est GFR (Non-Af Amer) 46 POC Glucose (mg/dL) 266 H Random Glucose 264 H Calcium 8.5 Troponin I 0.05 D - Imaging and Cardiology CT scan - head Status: Image reviewed by me, Report reviewed by me (No acute findings.) Assessment & Plan (1) Near syncope Assessment and Plan: Continue fluids and antiplatelet agents. Manage anti-hypertensive agents per primary team. DVT Px. PT/OT. Follow up as outpatient. Thank you. Status: Acute Priority: High
== END 2016-08-12 16:00 | disposition home or self-care (01) ==
LOC: ED 18:18 → ERH 21:00 → 2RSO 08-11 00:15 → 3RNO 08-11 22:42
PROVIDERS: ADMIT Internal Medicine; ATTEND Internal Medicine
DX: L03.115 Cellulitis of right lower limb (principal); L03.116 Cellulitis of left lower limb; E11.22 Type 2 diabetes mellitus with diabetic chronic kidney disease; E11.40 Type 2 diabetes mellitus with diabetic neuropathy, unspecified; F03.90 Unspecified dementia, unspecified severity, without behavioral disturbance, psychotic disturbance, mood disturbance, and anxiety; I13.0 Hypertensive heart and chronic kidney disease with heart failure and stage 1 through stage 4 chronic kidney disease, or unspecified chronic kidney disease; I50.9 Heart failure, unspecified; I44.0 Atrioventricular block, first degree; I45.10 Unspecified right bundle-branch block; I73.9 Peripheral vascular disease, unspecified; I89.0 Lymphedema, not elsewhere classified; J44.9 Chronic obstructive pulmonary disease, unspecified; N18.9 Chronic kidney disease, unspecified; Z79.02 Long term (current) use of antithrombotics/antiplatelets; Z79.899 Other long term (current) drug therapy; Z87.01 Personal history of pneumonia (recurrent); Z87.891 Personal history of nicotine dependence; H26.9 Unspecified cataract; M19.90 Unspecified osteoarthritis, unspecified site; R26.81 Unsteadiness on feet; R33.9 Retention of urine, unspecified; F32.89 Other specified depressive episodes; Z87.19 Personal history of other diseases of the digestive system; R40.2411 Glasgow coma scale score 13-15, in the field [EMT or ambulance]; R20.9 Unspecified disturbances of skin sensation; R55 Syncope and collapse
CPT/HCPCS: 36415; 70450; 71010; 80048; 80053; 80061; 81001; 82550; 82803; 82948; 83615; 83735; 84145; 84484; 85025; 85610; 85730; 87040; 87086; 93005; 94660; 96365; 96367; 99285; G0378; J0696; J1644; J2543; J7040

== ENCOUNTER 2016-12-31 10:25 | Observation (INO) | payer MEDICARE, BC ==
--- NOTE | 2016-12-31 11:58 | ED PDOC ---
Arrival/HPI - General Historian: Patient, Spouse - History of Present Illness Time/Duration: Other (One year) Symptom Onset: Gradual Symptom Course: Intermittent Quality: Pressure, Stabbing Severity Level: 10 Activities at Onset: Rest, Light Context: Home <Arturo Vera - Last Filed: 12/31/16 11:55> <BroderickIssac Jeison - Last Filed: 12/31/16 16:49> - General Chief Complaint: Male Genitourinary Time Seen by Provider: 12/31/16 10:55 - History of Present Illness Narrative History of Present Illness (Text): 12/31/16 12:07 Mr. Alvarez is a 76 year old sao tomean male with a past medical history significant for COPD, HTN, CKD, chronic lower extremity swelling, and chronic testicular pain presents to the [facility] with a chief complaint of left testicular pain. Patient reports that he has had left testicular pain intermittently that radiates to his left flank over the course of the past year for which he takes tramadol and ibuprofen with moderate relief. He states that last night the pain was the worst that it has been in a few months and he wanted to get "checked out". He states that he is currently not in any pain from his testicle. He has been seen in the [facility] for this in the past but has not been seen by a urologist. He currently denies flank pain, testicular pain, penile discharge, genital lesions, or testicular masses. He also denies fever, chills, headache, chest pain, palpitations, SOB, cough, abdominal pain, N/V, diarrhea, constipation, burning/pain with urination or hematuria. (Arturo Vera) Past Medical History - Provider Review Nursing Documentation Reviewed: Yes - Travel History Have you recently traveled outside [place] w/in the past 3 mons?: No - Past History Past History: Non-Contributing - Infectious Disease Hx of Infectious Diseases: None - Tetanus Immunization Tetanus Immunization: Unknown - Cardiac Hx Cardiac Disorders: Yes Hx Congestive Heart Failure: Yes Hx Hypertension: Yes Hx Peripheral Edema: Yes - Pulmonary Hx Respiratory Disorders: Yes Hx Asthma: Yes Hx Bronchitis: Yes Hx Chronic Obstructive Pulmonary Disease (COPD): Yes Hx Emphysema: Yes Hx Pneumonia: Yes - Neurological Hx Neurological Disorder: Yes Hx Dementia: Yes - HEENT Hx HEENT Disorder: Yes Hx Cataracts: Yes (left eye) - Renal Hx Renal Failure: Yes - Endocrine/Metabolic Hx Diabetes Mellitus Type 2: Yes - Hematological/Oncological Hx Blood Disorders: No - Integumentary Hx Dermatological Disorder: Yes Other/Comment: LYMPEDEMA BILATERAL LE, +4 pitting edema and dry leathery, painful , red lower legs - Musculoskeletal/Rheumatological Hx Arthritis: Yes Hx Falls: Yes Hx Osteoarthritis: Yes Hx Unsteady Gait: Yes - Gastrointestinal Hx Gastrointestinal Disorders: No - Genitourinary/Gynecological Hx Genitourinary Disorders: Yes (URINARY RETENTION) - Psychiatric Hx Psychophysiologic Disorder: Yes Hx Depression: Yes Hx Emotional Abuse: No Hx Physical Abuse: No Hx Substance Use: No - Past Surgical History Past Surgical History: No Previous - Surgical History Other/Comment: polyps removed in rectum - Anesthesia Hx Anesthesia: Yes Hx Anesthesia Reactions: No Hx Malignant Hyperthermia: No - Suicidal Assessment Feels Threatened In Home Enviroment: No <Arturo Vera - Last Filed: 12/31/16 11:55> Family/Social History - Physician Review Nursing Documentation Reviewed: Yes Family/Social History: No Known Family HX Smoking Status: Heavy Smoker > 10 Cigarettes Daily Hx Alcohol Use: No Hx Substance Use: No Hx Substance Use Treatment: No <Arturo Vera - Last Filed: 12/31/16 11:55> Allergies/Home Meds <Arturo Vera - Last Filed: 12/31/16 11:55> <Issac Villafana - Last Filed: 12/31/16 16:49> Allergies/Adverse Reactions: Allergies No Known Allergies Allergy (Verified 07/24/16 19:45) Home Medications: Home Meds Medication Instructions Recorded Confirmed Atorvastatin [Lipitor] 20 mg PO DAILY 04/05/12 12/31/16 Clopidogrel [Plavix] 75 mg PO DAILY 04/05/12 12/31/16 Pantoprazole [Protonix EC Tab] 40 mg PO DAILY 07/24/16 12/31/16 Famotidine [Pepcid] 20 mg PO BID 12/31/16 12/31/16 Furosemide [Lasix] 40 mg PO BID 12/31/16 12/31/16 Insulin Detemir [Levemir] 20 unit SC DAILY 12/31/16 12/31/16 Insulin Lispro [Humalog (Insulin 5 unit SQ BID 12/31/16 12/31/16 Lispro)] SITagliptin [Januvia] 100 mg PO DAILY 12/31/16 12/31/16 Valsartan [Diovan] 40 mg PO DAILY 12/31/16 12/31/16 traMADol [Ultram] 50 mg PO PRN PRN 12/31/16 12/31/16 Review of Systems - Physician Review All systems were reviewed & negative as marked: Yes - Review of Systems Constitutional: Normal. absent: Fevers, Night Sweats Eyes: Normal. absent: Vision Changes ENT: Normal Respiratory: Normal. absent: SOB, Cough, Sputum, Wheezing Cardiovascular: Normal. absent: Chest Pain, Palpitations Gastrointestinal: Normal. absent: Abdominal Pain, Constipation, Diarrhea, Nausea, Vomiting Genitourinary Male: Other (Left testicular pain). absent: Normal, Dysuria, Hematuria Musculoskeletal: Back Pain. absent: Normal, Arthralgias, Neck Pain, Joint Swelling, Myalgias Skin: Cellulitis (Chronic cellulitis and edema of bilateral lower extremity). absent: Normal Neurological: Normal. absent: Headache Endocrine: Normal Hemo/Lymphatic: Normal Psychiatric: Normal <Arturo Vera - Last Filed: 12/31/16 11:55> Physical Exam Vital Signs Reviewed: Yes Temperature: Afebrile Blood Pressure: Normal Pulse: Regular Respiratory Rate: Normal Appearance: Positive for: Well-Appearing, Non-Toxic, Comfortable Pain Distress: None Mental Status: Positive for: Alert and Oriented X 3 - Systems Exam Head: Present: Atraumatic, Normocephalic Pupils: Present: PERRL Extroacular Muscles: Present: EOMI Conjunctiva: Present: Normal Mouth: Present: Moist Mucous Membranes Pharnyx: Present: Normal. No: ERYTHEMA Nose (External): Present: Atraumatic Neck: Present: Normal Range of Motion. No: Meningeal Signs, MIDLINE TENDERNESS , Paraspinal Tenderness, JVD, Lymphadenopathy Respiratory/Chest: Present: Clear to Auscultation, Good Air Exchange. No: Respiratory Distress, Accessory Muscle Use, Wheezes, Decreased Breath Sounds, Rales, Retracting, Rhonchi, Tachypneic Cardiovascular: Present: Regular Rate and Rhythm, Normal S1, S2, Peripheal Pulses Present. No: Murmurs, Irregular Rhythm, Tachycardic, Bradycardic, Rub, Gallop Abdomen: Present: Normal Bowel Sounds. No: Tenderness, Distention, Peritoneal Signs, Hernias Genitourinary Male: Present: Normal External Genitalia, Testicle Tenderness ( Left). No: Circumcised Penis, Lesions, Penile Discharge, Penile Swelling, Masses, Erythema, Hernias, Testicle Swelling Back: Present: Normal Inspection. No: CVA Tenderness, Midline Tenderness, Paraspinal Tenderness Upper Extremity: Present: Normal Inspection, Normal ROM, NORMAL PULSES. No: Cyanosis, Edema Lower Extremity: Present: Edema, NORMAL PULSES, Tenderness, Swelling, Erythema ( Chronic), Neurovascularly Intact, Capillary Refill < 2 s. No: Normal Inspection (Wrapped in wound dressing to knee), Cyanosis, Natalia's Sign Neurological: Present: GCS=15, CN II-XII Intact, Speech Normal Skin: Present: Warm, Dry. 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 76 year old male presents with testicular pain. On exam, left testicular tenderness. Discussed with Dr. Reese, who recommends CT, IV antibiotics, and will admit for further evaluation and consultation with Dr. Escudero and Dr. Lewis. (Imm, Issac T) - Lab Interpretations Lab Results: 12/31/16 12:00 12/31/16 12:00 Lab Results 12/31/16 13:52: Urine Color Yellow, Urine Appearance Clear, Urine pH 6.5, Ur Specific [place] 1.010, Urine Protein Negative, Urine Glucose (UA) Negative, Urine Ketones Negative, Urine Blood Negative, Urine Nitrate Negative, Urine Bilirubin Negative, Urine Urobilinogen 0.2, Ur Leukocyte Esterase Negative 12/31/16 12:00: WBC 7.4 D, RBC 3.93, Hgb 12.2 L, Hct 37.7 L, MCV 95.9, MCH 31.0 , MCHC 32.4, RDW 13.5, Plt Count 179, MPV 12.0 H, Gran % 65.5, Lymph % (Auto) 24.9, [place] % (Auto) 8.3 H, Eos % (Auto) 1.2 L, Baso % (Auto) 0.1, Gran # 4.81, Lymph # 1.8, [place] # 0.6, Eos # 0.1, Baso # 0.01 12/31/16 12:00: Sodium 139, Potassium 4.3, Chloride 100, Carbon Dioxide 34 H, Anion Gap 10, BUN 35 H, Creatinine 1.6 H, Est GFR ( Amer) 51, Est GFR ( Non-Af Amer) 42, Random Glucose 186 H, Calcium 9.1, Total Bilirubin 0.4, AST 19 , ALT 30, Alkaline Phosphatase 75, Total Protein 7.0, Albumin 3.7, Globulin 3.3 , Albumin/Globulin Ratio 1.1 - RAD Interpretation Radiology Orders: 12/31/16 11:41 TESTES DUPLEX COMPLETE [US] Stat 12/31/16 14:51 ABDOMEN & PELVIS [ABD & PELVIS W/O PO OR IV CONT] [CT] Stat - Medication Orders Current Medication Orders: Atorvastatin Calcium (Lipitor) 20 mg PO DIN [facility] Clopidogrel Bisulfate (Plavix) 75 mg PO DAILY [facility] Famotidine (Pepcid) 20 mg PO BID [facility] Finasteride (Proscar) 5 mg PO DAILY [facility] Furosemide (Lasix) 40 mg PO BID [facility] Levofloxacin/Dextrose (Levaquin 500mg) 500 mg in 100 mls @ 100 mls/hr IVPB DAILY [facility]AR Last Admin: 12/31/16 15:56 Dose: 100 mls/hr eMAR Start Stop Document 11/20/17 15:56 GMD (Rec: 12/31/16 15:56 GMD [id number]) Intravenous Solution Start Date 12/31/16 Start Time 15:56 End Date 12/31/16 End time 16:56 Total Infusion Time 60 Insulin Detemir (Levemir) 20 unit SC DAILY [facility] Insulin Human Lispro (Humalog) 5 units SC BID [facility] Losartan Potassium (Cozaar) 25 mg PO DAILY [facility] Roflumilast (Daliresp) 500 mcg PO DAILY [facility] Tamsulosin HCl (Flomax) 0.4 mg PO DAILY [facility] Tramadol HCl (Ultram) 50 mg PO BID PRN PRN Reason: Pain, moderate (4-7) <Arturo Vera - Last Filed: 12/31/16 11:55> - PA / REVOLVING INVENTORY CLERK / Resident Statement MD/DO has reviewed & agrees with the documentation as recorded. MD/DO has examined the patient and agrees with the treatment plan. - Scribe Statement The provider has reviewed the documentation as recorded by the Scribe <Issac Villafana - Last Filed: 12/31/16 16:49> - Scribe Statement Stephanie Webster Provider Scribe Attestation: All medical record entries made by the Scribe were at my direction and personally dictated by me. I have reviewed the chart and agree that the record accurately reflects my personal performance of the history, physical exam, medical decision making, and the department course for this patient. I have also personally directed, reviewed, and agree with the discharge instructions and disposition. (Issac Villafana) Disposition/Present on Arrival - Present on Arrival History of DVT/PE: No History of Uncontrolled Diabetes: Yes Urinary Catheter: No History of Decub. Ulcer: No History Surgical Site Infection Following: None <Arturo Vera - Last Filed: 12/31/16 11:55> - Present on Arrival Any Indicators Present on Arrival: Yes - Disposition Have Diagnosis and Disposition been Completed?: Yes Disposition Time: 14:58 Patient Plan: Admission <Issac Villafana - Last Filed: 12/31/16 16:49> - Disposition Diagnosis: Epididymitis, Flank pain Disposition: HOSPITALIZED Condition: FAIR
[2016-12-31 12:17] LABS: BASO # 0.01 K/mm3 (0.0-2.0); BASO % 0.1 % (0.0-3.0); EOS # 0.1 (0.0-0.7); EOS % 1.2 % (1.5-5.0); GRAN # 4.81 (1.4-6.5); GRAN % 65.5 % (50.0-68.0); HEMATOCRIT 37.7 % (42.0-52.0); LYMPH # 1.8 (1.2-3.4); LYMPH % 24.9 % (22.0-35.0); MEAN CELL VOLUME 95.9 fl (80.0-105.0); MEAN CORPUSCULAR HGB CONC 32.4 g/dl (31.0-37.0); MONO # 0.6 (0.1-0.6); MONO % 8.3 % (1.0-6.0); RED CELL DISTRIBUTION WIDTH 13.5 % (11.5-14.5); WHITE BLOOD COUNT 7.4 10^3/ul (4.5-11.0)
[2016-12-31 12:27] LABS: ALB/GLOB RATIO 1.1 (1.1-1.8); BILIRUBIN,TOTAL 0.4 mg/dL (0.2-1.3); CALCIUM 9.1 mg/dL (8.4-10.5); POTASSIUM 4.3 mmol/L (3.6-5.0)
--- NOTE | 2016-12-31 13:23 | US ---
HISTORY: testicular pain/tenderness TECHNIQUE: Realtime sonography through the scrotum with color and doppler flow. COMPARISON: Comparison is made to the previous study dated 07/24/2016 FINDINGS: RIGHT TESTICLE: Measures 4.6 x 2.3 x 2.4 cm. Mild heterogeneous echotexture of the right testicle associated with mild hyperemia is noted. RIGHT EPIDIDYMIS: Epididymal head measures 1.8 x 2 x 1.4 cm. Heterogeneous enlargement of the right epididymal head is noted associated with hyperemia suspicious for epididymitis. LEFT TESTICLE: Measures 4.5 x 2.0 x 2.9 cm. Also mild heterogeneous echotexture of the left testicle associated with hyperemia noted. LEFT EPIDIDYMIS: Epididymal head measures 1.1 x 0.6 x 1.7 cm. Small epididymal head cyst noted measures 0.2 centimeter. There is heterogeneous enlargement of the left epididymal tail which measures 2.1 x 1.4 x 1.6 centimeter. HYDROCELE: None. VARICOCELE: [id number] bilateral varicoceles seen more prominent on the left. OTHER FINDINGS: None. IMPRESSION: Heterogeneous echotexture of the testicles associated with mild hyperemia. The possibility of mild orchitis should be considered. Interval appearance of heterogeneous enlargement of the right epididymal head associated with hyperemia since the previous exam suspicious for epididymitis. Heterogeneous enlargement of the left epididymal tail also associated with hyperemia suspicious for epididymitis. [id number] varicoceles more prominent on the left.
[2016-12-31 14:02] LABS: PH,URINE 6.5 (4.7-8.0); URINE BILIRUBIN NEGATIVE (NEGATIVE); URINE BLOOD NEGATIVE (NEGATIVE); URINE GLUCOSE (UA) NEGATIVE (NEGATIVE); URINE KETONE NEGATIVE (NEGATIVE); URINE LEUKOCYTE ESTERASE NEGATIVE Leu/uL (NEGATIVE); URINE PROTEIN NEGATIVE mg/dL (<30 mg/dL); URINE UROBILINOGEN 0.2 E.U./dL (<1 E.U./dL)
[2016-12-31 14:07] LABS: URINE APPEARANCE CLEAR (CLEAR); URINE COLOR YELLOW (YELLOW)
[2016-12-31] MEDS ORDERED: levoFLOXacin 500 mg in D5W 500 MG/100 ML BAG IVPB SCH (15:00)
--- NOTE | 2016-12-31 16:23 | CT ---
PROCEDURE: CT Abdomen and Pelvis without intravenous contrast HISTORY: Left flank pain COMPARISON: Abdomen and pelvis CT without contrast 01/24/2015. TECHNIQUE: Helical CT of the abdomen and pelvis was performed without oral or intravenous contrast as per referring physician request. Contrast Dose: None. Radiation dose: Total exam DLP = 2131.50 mGy-cm. This CT exam was performed using one or more of the following dose reduction techniques: Automated exposure control, adjustment of the mA and/or kV according to patient size, and/or use of iterative reconstruction technique. FINDINGS: LOWER THORAX: Cardiomegaly again evident. Respiratory motion degrades quality of lung base sections. No pleural or pericardial effusion identified. A small hiatal hernia is again evident. LIVER: Unremarkable. No gross lesion or ductal dilatation. GALLBLADDER AND BILE DUCTS: Unremarkable. PANCREAS: Unremarkable. No gross lesion or ductal dilatation. SPLEEN: Unremarkable. ADRENALS: Right adrenal gland remains unremarkable. Left adrenal hyperplasia or nodule is stable in appearance. KIDNEYS AND URETERS: Punctate intrarenal calculus lower pole left kidney again identified. No hydronephrosis. Minimal nonspecific streaky perinephric changes again identified appearing stable. VASCULATURE: Unremarkable. No aortic aneurysm. BOWEL: Moderate fecal loading is seen throughout various large-bowel segments once again. . No obstruction. No gross mural thickening. The stomach is completely collapsed with mural thickening of the greater curvature not completely excluded. Clinically correlate further. APPENDIX: Normal appendix. PERITONEUM: Unremarkable. No free fluid. No free air. LYMPH NODES: Unremarkable. No enlarged lymph nodes. BLADDER: Nonfocal although urinary bladder is up lifted by prostate gland. REPRODUCTIVE: Enlarged prostate gland of with the urinary bladder base. BONES: No acute fracture. OTHER FINDINGS: None. IMPRESSION: 1. A punctate intrarenal calculus is again seen at the lower pole left kidney. No obstructive uropathy bilaterally however. 2. Oral contrast limits interpretation of gastrointestinal system with mural thickening the greater curvature not completely excluded with the stomach completely collapsed. There is no bowel obstruction and moderate fecal loading seen throughout the large bowel. 3. Stable left adrenal benign lesion or hyperplasia dating back at least to prior chest abdomen and pelvis CT 04/06/2012. 4. Lesser finding as discussed above including enlarged prostate gland.
[2016-12-31] MEDS: Insulin Lispro 1 UNITS/0.01 ML SC SCH (17:21)
[2016-12-31] MEDS ORDERED: INSULIN LISPRO 5 UNIT SQ SCH (18:00)
[2016-12-31 18:27] VITALS: BMI 41.5
[2016-12-31] MEDS ORDERED: Influenza Vaccine 60 mcg/0.5 mL SYR (4YR UP) IM ONE (18:27)
[2016-12-31] MEDS ORDERED: Pneumococcal 23-Valent Vaccine IM ONE (18:27)
[2016-12-31] MEDS: cefTRIAXone 1 gm 1 GM/100 ML BAG IVPB SCH (21:30)
[2016-12-31] MEDS: Insulin Lispro (humaLOG) MEDIUM Coverage SC SCH (23:17)
[2017-01-01] MEDS: Insulin Lispro (humaLOG) MEDIUM Coverage SC SCH ×4 (08:19→23:22)
[2017-01-01] MEDS: Albuterol-Ipratrop 3 mg / 0.5 (3 ml) UD IH SCH ×3 (09:03→20:15)
[2017-01-01 09:44] LABS: POTASSIUM 4.8 mmol/L (3.6-5.0)
[2017-01-01] MEDS ORDERED: VALSARTAN 40 MG PO SCH (10:00)
--- NOTE | 2017-01-01 10:16 | CARD ---
APPROVED REPORT EKG Measurement Heart [id number] <Conclusion> Poor ECG trace. Baseline artifact Probably Sinus with prolonged HI interval PVC's LAHB RBBB IMI, old NSSTW changes
[2017-01-01] MEDS: Enoxaparin 40 mg Syringe SC SCH (11:02)
[2017-01-01] MEDS: Insulin Detemir 100 units/ml Vial (Levemir) SC SCH (11:13)
[2017-01-01] MEDS: Insulin Lispro 1 UNITS/0.01 ML SC SCH ×2 (11:13→17:15)
[2017-01-01 12:16] VITALS: RESP 20; O2SAT 98
[2017-01-01] MEDS: cefTRIAXone 1 gm 1 GM/100 ML BAG IVPB SCH (14:53)
--- NOTE | 2017-01-01 15:16 | CP.PCM.CON ---
History of Present Illness - History of Present Illness History of Present Illness: 75 year old male was seen and evaluated at bedside with attending Dr. Reeder. Patient is resting comfortably at bedside. Pt seen concerning bilateral leg swelling. Patient was admitted for epididymitis but is now concerned about the swelling in his bilateral lower extremity. Patient states that he is feeling better since his the admission. Patient denies of any other pedal complains at this time. Patient denies of any recent F/N/V/C/SOB/CP today. Review of Systems - Constitutional Constitutional: As Per HPI Past Patient History - Infectious Disease Hx of Infectious Diseases: None - Tetanus Immunizations Tetanus Immunization: Unknown - Past Social History Smoking Status: Heavy Smoker > 10 Cigarettes Daily - CARDIAC Hx Cardiac Disorders: Yes (cad) Hx Congestive Heart Failure: Yes Hx Hypercholesterolemia: Yes Hx Hypertension: Yes Hx Peripheral Edema: Yes (+4 edema dry leathery painful legs) Hx Peripheral Vascular Disease: Yes - PULMONARY Hx Respiratory Disorders: Yes (home o2) Hx Asthma: Yes Hx Bronchitis: Yes Hx Chronic Obstructive Pulmonary Disease (COPD): Yes Hx Emphysema: Yes Hx Pneumonia: Yes Other/Comment: respiratory infection with hypoxia - NEUROLOGICAL Hx Neurological Disorder: Yes (weakness) Hx Dementia: Yes Hx Dizziness: Yes - HEENT Hx HEENT Problems: Yes Hx Cataracts: Yes (b/l cataract sx) - RENAL Hx Renal Failure: Yes - ENDOCRINE/METABOLIC Hx Diabetes Mellitus Type 2: Yes - HEMATOLOGICAL/ONCOLOGICAL Hx Blood Disorders: No Hx Cancer: (pt denies) - INTEGUMENTARY Hx Dermatological Problems: Yes Other/Comment: LYMPEDEMA BILATERAL LE, +4 pitting edema and dry leathery, painful , red lower legs, both lower legs wrapped - MUSCULOSKELETAL/RHEUMATOLOGICAL Hx Falls: Yes (past) - GASTROINTESTINAL Hx Gastrointestinal Disorders: No - GENITOURINARY/GYNECOLOGICAL Hx Genitourinary Disorders: Yes (URINARY RETENTION) Hx Prostate Problems: Yes (bph) Hx Urinary Tract Infection: Yes - PSYCHIATRIC Hx Psychophysiologic Disorder: Yes Hx Depression: Yes Hx Emotional Abuse: No Hx Physical Abuse: No - SURGICAL HISTORY Other/Comment: polyps removed in rectum - ANESTHESIA Hx Anesthesia: Yes Hx Anesthesia Reactions: No Hx Malignant Hyperthermia: No Meds Allergies/Adverse Reactions: Allergies Allergy/AdvReac Type Severity Reaction Status Date / Time No Known Allergies Allergy Verified 07/24/16 19:45 - Medications Medications: Current Medications Albuterol/Ipratropium (Duoneb 3 Mg/0.5 Mg (3 Ml) Ud) 3 ml IH [id number] [facility] Last Admin: 01/01/17 13:55 Dose: 3 ml Atorvastatin Calcium (Lipitor) 20 mg PO DIN [facility] Last Admin: 12/31/16 17:22 Dose: 20 mg Clopidogrel Bisulfate (Plavix) 75 mg PO DAILY [facility] Last Admin: 01/01/17 11:03 Dose: 75 mg Enoxaparin Sodium (Lovenox) 40 mg SC DAILY [facility] PRN Reason: Protocol Last Admin: 01/01/17 11:02 Dose: 40 mg Famotidine (Pepcid) 20 mg PO BID [facility] Last Admin: 01/01/17 11:03 Dose: 20 mg Finasteride (Proscar) 5 mg PO DAILY [facility] Last Admin: 01/01/17 11:02 Dose: 5 mg Furosemide (Lasix) 40 mg PO BID [facility] Last Admin: 01/01/17 11:03 Dose: 40 mg Ceftriaxone Sodium (Rocephin 1 Gram Ivpb) 1 gm in 100 mls @ 100 mls/hr IVPB DAILY [facility] PRN Reason: Protocol Last Admin: 01/01/17 14:53 Dose: 100 mls/hr Doxycycline Hyclate 100 mg/ (Sodium Chloride) 100 mls @ 100 mls/hr IVPB Q12 [facility] PRN Reason: Protocol Last Admin: 01/01/17 11:19 Dose: 100 mls/hr Insulin Detemir (Levemir) 20 unit SC DAILY [facility] Last Admin: 01/01/17 11:13 Dose: Not Given Insulin Human Lispro (Humalog) 5 units SC BID [facility] Last Admin: 01/01/17 11:13 Dose: 5 units Insulin Human Lispro (Humalog Med) 0 units SC ACHS [facility] PRN Reason: Protocol Last Admin: 01/01/17 12:00 Dose: Not Given Losartan Potassium (Cozaar) 25 mg PO DAILY [facility] Last Admin: 01/01/17 11:04 Dose: 25 mg Nicotine (Nicoderm Cq) 1 patch TD DAILY [facility] Last Admin: 01/01/17 11:02 Dose: 1 patch Roflumilast (Daliresp) 500 mcg PO DAILY [facility] Last Admin: 01/01/17 11:03 Dose: 500 mcg Tamsulosin HCl (Flomax) 0.4 mg PO DAILY [facility] Last Admin: 01/01/17 11:02 Dose: 0.4 mg Tramadol HCl (Ultram) 50 mg PO BID PRN PRN Reason: Pain, moderate (4-7) Physical Exam - Constitutional Appears: Well, Non-toxic, No Acute Distress - Extremities Exam Additional comments: Vasc: DP and PT pulses non-palpable bilateral. CFT >5 seconds to all digits b/ l. Derm: Skin of dorsal feet and skin is shiny, thin, with non-blanchable erythema. No open wounds, lesions, or portals of entry noted. Right turgid, dorsal foot vesicle noted. Lymphedema noted extending from feet bilaterally up to thigh level, no clinical suspicion of active infection at this time Neuro: Gross sensation decreased b/l. Ortho: Pain on palpation to bilateral legs and dorsal feet. - Neurological Exam Neurological exam: Alert, Oriented x3 - Psychiatric Exam Psychiatric exam: Normal Affect, Normal Mood Results - Vital Signs Recent Vital Signs: Last Vital Signs Temp 98.2 F 01/01/17 07:00 Pulse 84 01/01/17 11:04 Resp 20 01/01/17 07:00 BP 144/69 01/01/17 11:04 Pulse Ox 98 01/01/17 07:00 - Labs Result Diagrams: 12/31/16 12:00 01/01/17 09:20 Labs: Laboratory Results - last 24 hr 12/31/16 12/31/16 01/01/17 16:33 21:34 07:58 Sodium Potassium Chloride Carbon Dioxide Anion Gap BUN Creatinine Est GFR ( Amer) Est GFR (Non-Af Amer) POC Glucose (mg/dL) 128 H 130 H 172 H Random Glucose Calcium 01/01/17 01/01/17 09:20 11:09 Sodium 139 Potassium 4.8 Chloride 101 Carbon Dioxide 33 Anion Gap 10 BUN 31 H Creatinine 1.6 H Est GFR ( Amer) 51 Est GFR (Non-Af Amer) 42 POC Glucose (mg/dL) 222 H Random Glucose 242 H Calcium 9.0 Assessment & Plan - Assessment and Plan (Free Text) Assessment: 75 year old male with Lymphedema Plan: Patient examined and evaluated with attending Dr. Reeder. Skin was cleansed with chloroprep pad and applied lotion to b/l LE. Will apply LION bandages bilaterally tomorrow Patient to keep legs elevated when resting. Podiatry will continue to follow patient while in house. - Date & Time Date: 01/01/17 Time: 16:03
--- NOTE | 2017-01-01 19:32 | CON ---
DATE: 01/01/2017 LOCATION: The patient is in room 569, bed 1, was seen earlier today. CHIEF COMPLAINT: Left testicular pain times several days. HISTORY OF PRESENT ILLNESS: This is a 76-year-old [place] male with morbid obesity, BMI of 43 with diabetes mellitus, coronary artery disease, chronic obstructive lung disease, hypertension, high cholesterol, diabetic neuropathy, who is admitted now with left testicular pain, had an ultrasound which showed left epididymitis. Infectious Diseases consultation requested. REVIEW OF SYSTEMS: Reveals the patient has no fevers and no chills. No chest pain. No hemoptysis. No nausea or vomiting. 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 He has also pulmonary hypertension. PAST SURGICAL HISTORY: Noncontributory. ALLERGIES: THE PATIENT HAS NO KNOWN ALLERGIES. SEXUAL HISTORY: The patient is not sexually active for years. MEDICATIONS AT HOME: Include the patient to be on glyburide, Diovan, sildenafil, Protonix, insulin, Pepcid, Plavix, Lipitor. PHYSICAL EXAMINATION: VITAL SIGNS: The patient is in bed with temperature of 98, blood pressure is 125/30, respiratory rate of 18, it was up to 24, heart rate of 66. HEENT: Unremarkable. NECK: Supple. LUNGS: Have decreased breath sounds. HEART: Normal S1, S2. ABDOMEN: Soft, nontender. GENITALIA: Examination of testicles, left testicle appears normal. Minimal tenderness upon palpation. LABORATORY EXAMINATION: Reveals a white count of 7.4, hemoglobin of 12, platelets of 179. Chemistries are noted and creatinine of 1.6 with BUN of 35. Urinalysis is entirely within normal limits. The patient had an ultrasound of the testicles which showed left testicular epididymitis. ASSESSMENT/PLAN: This is a 76-year-old [place] male with diabetes mellitus, coronary artery disease, chronic obstructive lung disease, hypertension, high cholesterol, morbid obesity with BMI of 43, diabetic neuropathy presenting with left epididymitis, currently on doxycycline and ceftriaxone. Case discussed with Dr. Reese at length. We will follow closely with you. Aleksandar Escudero MD
--- NOTE | 2017-01-01 19:38 | CARD ---
APPROVED REPORT EXAM: Two-dimensional and M-mode echocardiogram with Doppler and color Doppler. INDICATION Chest Pain 2D DIMENSIONS Left Atrium (2D)5.0 (1.6-4.0cm)IVSd1.4 (0.7-1.1cm) LVDd5.6 (3.9-5.9cm)LVOT Diameter2.2 (1.8-2.4cm) PWd1.5 (0.7-1.1cm)LVDs4.1 (2.5-4.0cm) FS (%) 26.8 %LVEF (%)51.8 (>50%) M-Mode DIMENSIONS Aortic Root3.90 (2.2-3.7cm)Aortic Cusp Exc.1.30 (1.5-2.0cm) Aortic Valve AoV Peak Wtmhodtt101.0cm/sAoV VTI61.1cmAO Peak GR.26mmHg LVOT Peak Ryxltrvo96.8cm/sLVOT VTI20.80cmAO Mean GR.17mmHg SHAYNA (VMAX)1.97ec4JZI (VTI)1.29cm2 Mitral Valve MV E Hdxuehxl31.5cm/sMV A Kithrukp80.7cm/sE/A ratio0.8 TDI Lateral E' Peak V8.87cm/sMedial E' Peak V5.95cm/sE/Lateral E'8.5 E/Medial E'12.7 Pulmonary Valve PV Peak Nhqghtrr67.2cm/sPV Peak Grad.2mmHg Tricuspid Valve TR Peak Dkuauwaw436gh/sRAP [id number] Peak Gr.32mmHg [id number] LEFT VENTRICLE The left ventricle is normal size. There is mild concentric left ventricular hypertrophy. The left ventricular function is low normal.EF-50-55% There is mild hypokinesis in the mid-inferior wall. Transmitral Doppler flow pattern is Grade III-reversible restrictive diastolic dysfunction. No left ventricle thrombus noted on this study. There is no ventricular septal defect visualized. There is no left ventricular aneurysm. There is no mass noted in the left ventricle. RIGHT VENTRICLE The right ventricle is normal size. There is normal right ventricular wall thickness. The right ventricular systolic function is normal. ATRIA The left atrium is mildly dilated. The right atrium size is normal. The interatrial septum is intact with no evidence for an atrial septal defect. AORTIC VALVE NO AR There are no vegetations on this prosthetic aortic valve. 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 MITRAL VALVE S/p MV repair, no MR TRICUSPID VALVE The tricuspid valve leaflets are thickened , but open well. There is mild tricuspid regurgitation.RVSP-42 mm of Hg. There is no tricuspid valve stenosis. There is no tricuspid valve prolapse or vegetation. PULMONIC VALVE The pulmonic valve is not well visualized. There is no pulmonic valvular regurgitation. There is no pulmonic valvular stenosis. GREAT VESSELS The aortic root is normal in size. The ascending aorta is normal in size. The pulmonary artery is normal. The IVC is normal in size and collapses >50% with inspiration. PERICARDIAL EFFUSION There is no pleural effusion. There is no pericardial effusion. <Conclusion> The left ventricle is normal size. There is mild concentric left ventricular hypertrophy. The left ventricular function is low normal.EF-50-55% There are no vegetations on this prosthetic aortic valve. 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 NO AR S/p MV repair, no MR There is mild tricuspid regurgitation.RVSP-42 mm of Hg. The IVC is normal in size and collapses >50% with inspiration. There is no pericardial effusion.
--- NOTE | 2017-01-01 19:46 | CON ---
DATE: 01/01/2017 CHIEF COMPLAINT Testicular pain. HISTORY OF PRESENT ILLNESS: This is a 76-year-old man with a history of COPD. He was complaining of testicular pain primarily on the left. He has chronic edema. He is on Plavix. He has no urinary symptoms. His urinalysis is normal. His white count is normal at 7400. A testicular ultrasound was done which showed some increased vascularity and mild enlargement of the left epididymal tail. PAST MEDICAL HISTORY: Significant for COPD, asthma, emphysema. He has a history of congestive heart failure, chronic edema, and hypertension. PAST SURGICAL HISTORY: He has had left cataract surgery. ALLERGIES: HE HAS NO ALLERGIES. MEDICATIONS: At home, he is on Plavix, Lipitor, Protonix, Lasix, insulin, Diovan. SOCIAL HISTORY: Reveals noncontributory, FAMILY HISTORY: Noncontributory. REVIEW OF SYMPTOMS. No symptoms referable to the constitutional, eyes, ears, nose and throat. He has some shortness of breath, is currently on oxygen. He has no chest pain. He has no abdominal pain. He has a left testicular pain. Skin: He has chronic edema of his lower extremities. No neurologic symptoms. No psychiatric symptoms. PHYSICAL EXAMINATION: GENERAL: Shows him to be obese. VITAL SIGNS: Show he is afebrile, pulse 84, blood pressure 144/69, respirations 24. HEENT: Normocephalic. Sclerae clear. Conjunctivae noninjected. ABDOMEN: He has no CVA pain. No hepatosplenomegaly, rebound, or guarding. No suprapubic tenderness. GENITALIA: There is some mild edema of the prepuce and penis. Scrotum itself has normal rugae. There is no erythema. There is no fluctuance. The right testicle is normal. Left testicle also is normal. The epididymis has some thickening of the lower pole with some mild tenderness. SKIN: Skin shows pedal edema 4+, chronic. LABORATORY WORK: Shows a urinalysis was completely normal. His creatinine is 1.6 with a BUN of 31. His white count 7400, hemoglobin 12.2. The patient currently is on Rocephin and doxycycline. IMPRESSION: Very, very mild left epididymitis. RECOMMENDATIONS: I recommend scrotal support, keep this elevated, warm soaks three to four times a day. I see that NSAIDs have been ordered. I would be careful using this in someone who is on Plavix. I do not think this is a severe case of epididymitis and should respond with normal treatment. His urine culture should be sent as well, although currently he is on Rocephin. He can follow up in the office as an outpatient. The CAT scan was reviewed. There was a punctate calcification in the kidney which was not significant, not causing any flank pain. Rudolph Hopson MD
--- NOTE | 2017-01-01 20:53 | CON ---
DATE: 01/01/2017 REASON FOR CONSULTATION: Followup cardiac evaluation, bradycardia. BRIEF CLINICAL HISTORY: The patient is a 76-year-old [place] male with past medical history significant for COPD, hypertension, CKD, chronic lower extremity swelling and edema, admitted with right testicular pain, possible epididymal orchitis. This morning, the patient was bradycardic at 45, Cardiology consult was called. The patient denies any chest pain and complained of shortness of breath because of COPD and home oxygen. PAST MEDICAL HISTORY: Significant for COPD, obstructive sleep apnea, type II diabetes, morbid obesity, hypertension, hyperlipidemia, peripheral arterial disease, history of colonic polyp, GI bleed, history of recurrent lower extremity swelling and cellulitis, history of venous stasis, and history of chronic venous ulcer. SOCIAL HISTORY: Denies any history of smoking. Denies any history of alcohol abuse. Most recent cardiac workup as follows; the patient underwent echocardiography on 12/08/2015 that shows left ventricular size is normal, normal LV wall thickness, normal LV function, aortic valve moderately calcified, mild aortic stenosis, mild tricuspid regurgitation, slko-yd-glftchel pulmonary hypertension, and right ventricular systolic pressure of 52. Calculated aortic valve area 1.6 cm2. Ejection fraction 60%. CURRENT MEDICATIONS AT HOME: Tramadol, glyburide, valsartan, Flomax nasal spray, Revatio 20 mg three times a day, Januvia, Daliresp, insulin, furosemide, clopidogrel, and atorvastatin. ALLERGIES: NO KNOWN DRUG ALLERGIES. REVIEW OF SYSTEMS: As per HPI. PHYSICAL EXAMINATION: VITAL SIGNS: As follows; temperature afebrile, heart rate 66, blood pressure 118/61. One time, the patient had last night heart rate was 45 when the patient was sleeping. HEENT: PERRLA. Extraocular muscles intact. NECK: Supple. No carotid bruits or thyromegaly. CHEST: Clear to auscultation. HEART: S1 and S2 regular. ABDOMEN: Soft. EXTREMITIES: Clubbing and cyanosis negative. LABORATORY DATA: EKG shows normal sinus with PAC, right bundle-branch block, left anterior hemiblock, and baseline artifact. Blood workup as follows; WBC 7.5, hemoglobin 12.8, hematocrit 37.7, and platelet count 179. Chemistry shows sodium 130, potassium 4.0, chloride 101, carbon dioxide 33, anion gap of 31, BUN 10, and creatinine 1.6. IMPRESSION: Chronic renal insufficiency, morbid obesity, [id number] aortic valve area of 1.6 cm2 in 2016, pulmonary hypertension, diabetes, hypertension, hyperlipidemia, chronic obstructive pulmonary disease, and on home oxygen, and preserved left ventricular ejection fraction 60%, right ventricular systolic pressure of 52, mild tricuspid regurgitation by echo 12/08/2015, obstructive sleep apnea, peripheral arterial disease, and chronic venous stasis ulcer. RECOMMENDATIONS: At one point, the patient was on beta-eugenia, now the patient is off beta-eugenia. Most likely, this bradycardic episode is secondary to vagal because the patient has severe testicular pain, he gets when he is sleeping. We will monitor and get echo, LV systolic function, lipid profile, TSH, and hemoglobin A1c. We will follow with you. Morbid obesity, body mass index of 41.6 kg/m2. Continue DVT prophylaxis. We will add TSH, lipid profile and for tomorrow hemoglobin A1c. Thank you for providing us the opportunity in taking care of the patient, Tony Alvarez. Lucia Badillo MD
--- NOTE | 2017-01-01 21:55 | HP ---
CHIEF COMPLAINT: The patient came in on 12/31/2016, came in complaining of left testicular pain, left-sided pain. HISTORY OF PRESENT ILLNESS: This is a 76-year-old male who complained of left-sided testicular pain, has been seen in the past with similar symptoms and an ultrasound was negative. At this time, the patient went home, he was okay till the pain came back again and start feeling these pain for the last 2 to 3 weeks, which got worse recently. The patient was advised to go to the hospital more than once, but he has problem coming to the hospital and came in today for evaluations. Denied any dysuria. He does have some frequent urinations. He does have problem in ambulation, difficult to ambulation because of his chronic back pain and lower extremity edema and lymphedema. He used urinal. The patient also denied any fever or chills. He complained of also left-sided flank pain that it is intermittently. The patient also had a history of COPD, hypertension, congestive heart failure, diabetes on insulin, getting Lasix and nebulizer treatment at home. HOME MEDICATIONS: He is taking tramadol 50 mg q.6 p.r.n., Micronase 5 mg, Diovan 40 mg, Flomax 0.4 mg, getting nasal spray [place], 20 mg t.i.d., Januvia 100 mg p.o. daily, Daliresp 500 mcg p.o. daily, Protonix 40 once a day, Mag Oxide 400 p.o. daily, Humalog insulin 5 units twice a day before meals, Levemir 20 units daily, Neurontin 300 mg p.o. at bedtime, Lasix 40 b.i.d., Proscar 5 mg once a day, Pepcid 20 mg once a day, Colace 100 mg b.i.d., Plavix 75 mg once a day, and Lipitor 20 mg once a day. ALLERGIES: THE PATIENT HAS NO KNOWN ALLERGY. SOCIAL HISTORY: He lives with his in his house. He smoke cigarettes almost a pack a day. He does not use any drug. No alcohol. REVIEW OF SYSTEMS: As in the present illness. He does have short of breath, has difficult ambulation, frequent urination, chronic back pain, chronic osteoarthritis and anxiety, transient. He does feel depressed. PHYSICAL EXAMINATION: VITAL SIGNS: As follows; temperature is 98, heart rate 45, blood pressure 125/78, respirations 24 and saturating 99%. HEAD AND NECK: Normal. No JVD. No thyromegaly. CHEST: Denies breath sounds bilaterally but clear. No wheeze. CARDIAC: First sound and second sound normal. ABDOMEN: Soft, obese, and nontender. EXTREMITIES: Both legs are and there is chronic skin changes noted. NEUROLOGIC: Normal. LABORATORY AND DIAGNOSTIC DATA: Shows white count 7.4, hemoglobin 12.2, hematocrit 37.7 and platelets 179. Chemistry noted for sodium 139, potassium 4.3, chloride 100, bicarb 34, BUN 35, creatinine 1.6 and blood sugar 186. Liver function test is normal. His urinalysis shows normal UA. Ultrasound of his testicle shows orchitis. CT of the abdomen without any IV contrast, it shows the following; there is intrarenal calculus in the left lower pole of the left kidney, again I did not find no hydronephrosis, minimal nonspecific streaking, perinephric changes identified, stable. As mentioned, left lower pole kidney stone. There is questionable mural thickening of the greater curvature, also stable left adrenal benign lesions or hyperplasia, has been seen in 2015, stable, also enlarged prostate. IMPRESSION AND PLAN: 1. The patient has acute orchitis, epididymitis, put the patient on Levaquin, get ID consult, Urology consult, Dr. Lewis, also Nephrology consult, Dr. Carvalho. We will continue IV antibiotic for now. 2. Diabetes, hypertension, chronic back pain. We will resume all his meds. We will resume insulin, insulin coverage and we will follow up clinically. 3. Smoking and chronic obstructive pulmonary disease. We will continue nebulizer treatment, give him nicotine patch and we will follow up clinically. The patient also received Rocephin 1 g daily. Manoj Reese MD
[2017-01-02] MEDS: Albuterol-Ipratrop 3 mg / 0.5 (3 ml) UD IH SCH ×3 (02:10→14:00)
[2017-01-02 07:11] LABS: BASO # 0.03 K/mm3 (0.0-2.0); BASO % 0.4 % (0.0-3.0); EOS # 0.1 (0.0-0.7); EOS % 1.4 % (1.5-5.0); GRAN # 4.83 (1.4-6.5); GRAN % 66.5 % (50.0-68.0); HEMATOCRIT 37.1 % (42.0-52.0); LYMPH # 1.8 (1.2-3.4); LYMPH % 24.8 % (22.0-35.0); MEAN CELL VOLUME 95.9 fl (80.0-105.0); MEAN CORPUSCULAR HEMOGLOBIN 30.2 pg (25.0-35.0); MEAN CORPUSCULAR HGB CONC 31.5 g/dl (31.0-37.0); MEAN PLATELET VOLUME 12.3 fl (7.0-11.0); MONO # 0.5 (0.1-0.6); MONO % 6.9 % (1.0-6.0); RED CELL DISTRIBUTION WIDTH 13.7 % (11.5-14.5); WHITE BLOOD COUNT 7.3 10^3/ul (4.5-11.0)
[2017-01-02 07:50] LABS: ALB/GLOB RATIO 1.1 (1.1-1.8); BILIRUBIN,TOTAL 0.5 mg/dL (0.2-1.3); MAGNESIUM 1.8 mg/dL (1.7-2.2); PHOSPHOROUS 4.4 mg/dL (2.5-4.5); POTASSIUM 4.5 mmol/L (3.6-5.0); TOTAL PROTEIN 6.9 g/dL (5.8-8.3)
[2017-01-02] MEDS: Insulin Lispro (humaLOG) MEDIUM Coverage SC SCH ×2 (08:00→12:29)
[2017-01-02 08:22] VITALS: BP 115/63; PULSE 89; TEMP 98.1
[2017-01-02] MEDS: Insulin Lispro 1 UNITS/0.01 ML SC SCH (09:10)
[2017-01-02] MEDS: cefTRIAXone 1 gm 1 GM/100 ML BAG IVPB SCH (09:12)
[2017-01-02] MEDS: Enoxaparin 40 mg Syringe SC SCH (09:12)
[2017-01-02] MEDS: Insulin Detemir 100 units/ml Vial (Levemir) SC SCH (11:19)
--- NOTE | 2017-01-02 12:23 | CP.PCM.PN ---
Subjective - Date & Time of Evaluation Date of Evaluation: 01/02/17 Time of Evaluation: 12:19 - Subjective Subjective: 75 year old male was seen and evaluated at bedside for swelling in his feet bilaterally. Patient is resting comfortably at bedside. Patient denies of any acute overnight events. Patient is AAOx3 and is in NAD. Patient denies of any other pedal complains at this time. Patient denies of any recent F/N/V/C/SOB/CP today. Objective - Vital Signs/Intake and Output Vital Signs (last 24 hours): Temp Pulse Resp BP Pulse Ox 98.1 F 89 20 115/63 98 01/02/17 07:30 01/02/17 09:06 01/02/17 07:30 01/02/17 09:07 01/02/17 07:30 Intake and Output: 01/02/17 01/02/17 06:59 18:59 Intake Total 780 Output Total 400 Balance 380 - Medications Medications: Current Medications Albuterol/Ipratropium (Duoneb 3 Mg/0.5 Mg (3 Ml) Ud) 3 ml IH [id number] [facility] Last Admin: 01/02/17 07:39 Dose: 3 ml Atorvastatin Calcium (Lipitor) 20 mg PO DIN [facility] Last Admin: 01/01/17 17:16 Dose: 20 mg Clopidogrel Bisulfate (Plavix) 75 mg PO DAILY [facility] Last Admin: 01/02/17 09:06 Dose: 75 mg Enoxaparin Sodium (Lovenox) 40 mg SC DAILY [facility] PRN Reason: Protocol Last Admin: 01/02/17 09:12 Dose: 40 mg Famotidine (Pepcid) 20 mg PO BID [facility] Last Admin: 01/02/17 09:07 Dose: 20 mg Finasteride (Proscar) 5 mg PO DAILY [facility] Last Admin: 01/02/17 09:06 Dose: 5 mg Furosemide (Lasix) 40 mg PO BID [facility] Last Admin: 01/02/17 09:07 Dose: 40 mg Ceftriaxone Sodium (Rocephin 1 Gram Ivpb) 1 gm in 100 mls @ 100 mls/hr IVPB DAILY [facility] PRN Reason: Protocol Last Admin: 01/02/17 09:12 Dose: 100 mls/hr Doxycycline Hyclate 100 mg/ (Sodium Chloride) 100 mls @ 100 mls/hr IVPB Q12 [facility] PRN Reason: Protocol Last Admin: 01/02/17 10:58 Dose: 100 mls/hr Insulin Detemir (Levemir) 20 unit SC DAILY [facility] Last Admin: 01/02/17 11:19 Dose: 20 unit Insulin Human Lispro (Humalog) 5 units SC BID [facility] Last Admin: 01/02/17 09:10 Dose: 5 units Insulin Human Lispro (Humalog Med) 0 units SC ACHS [facility] PRN Reason: Protocol Last Admin: 01/02/17 08:00 Dose: 1 units Losartan Potassium (Cozaar) 25 mg PO DAILY [facility] Last Admin: 01/02/17 09:06 Dose: 25 mg Nicotine (Nicoderm Cq) 1 patch TD DAILY [facility] Last Admin: 01/02/17 09:08 Dose: 1 patch Roflumilast (Daliresp) 500 mcg PO DAILY [facility] Last Admin: 01/02/17 09:07 Dose: 500 mcg Tamsulosin HCl (Flomax) 0.4 mg PO DAILY [facility] Last Admin: 01/02/17 09:06 Dose: 0.4 mg Tramadol HCl (Ultram) 50 mg PO BID PRN PRN Reason: Pain, moderate (4-7) - Labs Labs: 01/02/17 06:45 01/02/17 06:45 - Constitutional Appears: Well, Non-toxic, No Acute Distress - Extremities Exam Additional comments: Vasc: DP and PT pulses non-palpable bilateral. CFT >5 seconds to all digits b/ l. Derm: Skin of dorsal feet and skin is shiny, thin, with non-blanchable erythema. No open wounds, lesions, or portals of entry noted. Right turgid, dorsal foot vesicle noted. Lymphedema noted extending from feet bilaterally up to thigh level, no clinical suspicion of active infection at this time Neuro: Gross sensation decreased b/l. Ortho: Pain on palpation to bilateral legs and dorsal feet. - Neurological Exam Neurological Exam: Alert, Awake, Oriented x3 - Psychiatric Exam Psychiatric exam: Normal Affect, Normal Mood Assessment and Plan - Assessment and Plan (Free Text) Assessment: 75 year old male with chronic lymphedema bilaterally Plan: Patient examined and evaluated Patient discussed in details with attending Dr. Reeder. Aseptic debridement of nails using sterile nippers Applied LION bandages bilaterally Patient to keep legs elevated when resting. Podiatry will continue to follow patient while in house.
--- NOTE | 2017-01-02 14:09 | PN ---
DATE: 01/01/2017 SUBJECTIVE: A 76-year-old male admitted with orchitis and epididymitis, seems stable, afebrile. No chest pain. No shortness of breath. Seen by ID consultation. The patient underwent CT scan of the abdomen and pelvis, which is significant for stone in the left kidney, lower pole, stable. Ultrasound noted for epididymitis and orchitis. Clinically stable. No new complaints. PHYSICAL EXAMINATION: VITAL SIGNS: Temperature 98, heart rate 84, blood pressure 111/49, respirations 20, and saturation 98%. HEAD AND NECK: Normal. No JVD. No thyromegaly. LUNGS: Clear. There is diminished breath sounds in the bases. CARDIAC: First sound and second sound normal. ABDOMEN: Obese and nontender. EXTREMITIES: There is bilateral lymphedema. Both legs are wrapped with boots. NEUROLOGIC: Normal. LABORATORY STUDIES: Culture is still pending. Noted for blood sugar of 222, otherwise stable. CURRENT MEDICATIONS: Cozaar 25, Daliresp, Flomax, Humalog, Levemir 20 units subcutaneous daily, Lipitor 20, Lovenox 40, and NicoDerm CQ for smoking, Pepcid, Plavix, Proscar, Rocephin, and tramadol. IMPRESSION AND PLAN: 1. Orchitis and epididymitis. Cultures are still pending. Continue Rocephin and doxycycline. 2. Chronic obstructive pulmonary disease. 3. Hypertension. 4. Hypercholesterolemia. 5. Left kidney stones. 6. Obesity. 7. Obstructive sleep apnea. 8. Diabetes type 2. Resume insulin. Continue current management and will follow up clinically. Continue current therapy. Followup clinically. The patient is stable. We will discuss with other consultants, may be we will discharge tomorrow. Manoj Reese MD
[2017-01-02] MEDS ORDERED: Influenza Vaccine 60 mcg/0.5 mL SYR (4YR UP) IM ONE (14:42)
--- NOTE | 2017-01-03 00:11 | PN ---
DATE: 01/02/2017 LOCATION: The patient is in room number 569, bed 1. REASON FOR CONSULTATION: Bradycardia. BRIEF HISTORY: The patient is a 76-year-old male with COPD, hypertension, chronic kidney disease, chronic lower extremity swelling and edema, and morbid obesity, admitted with right testicular pain, possibly epididymal orchitis and the patient with pain has profound to have bradycardic with a heart rate of 45 per minute, for which consult has been called for cardiac evaluation. The patient denies any chest pain or shortness of breath at present, or palpitation, dizziness or syncope. The patient has known COPD with his home oxygen. PHYSICAL EXAMINATION: VITAL SIGNS: Blood pressure of 115/63, respirations of 20, pulse of 89, and temperature of 98.1. HEENT: Head is normocephalic. Eyes, pupils are normal. Conjunctivae are slightly pale. NECK: JVP low. Carotids equal. THORAX: AP diameter normal. LUNGS: Few expiratory wheezing. CARDIOVASCULAR: S1 and S2, distant heart sounds. No rubs. No click. ABDOMEN: Markedly protuberant. EXTREMITIES: The patient has chronic venostasis. LABORATORY DATA: WBC of 7.3, hemoglobin of 11.7, hematocrit of 37.1, and platelets 178. Sodium of 139, potassium of 4.5, BUN of 29, and creatinine of 1.5. Random sugar is 160. Calcium, phosphorus, magnesium, AST, ALT, total troponin and albumin are normal. TSH is 0.82. DIAGNOSTIC DATA: Echocardiogram, left ventricular normal size and mild concentric left ventricular hypertrophy with ejection fraction of 50% to 55%, calcific aortic valve, mild valvular aortic stenosis, mild tricuspid regurgitation with RVSP 42 mmHg, which is very mild pulmonary hypertension. IMPRESSION/RECOMMENDATIONS AND PLAN: The patient's bradycardia probably related to his epididymitis pain, so it can be vasovagal due to testicular pain. We will monitor the patient with you and echocardiogram findings as described above. I advised the patient to lose weight. We will continue present therapy and we will follow with you. Lucia Villaseñor MD
== END 2017-01-02 17:09 | disposition home or self-care (01) ==
LOC: ED 10:25 → ERH 14:58 → 5RNO 16:18
PROVIDERS: ADMIT Internal Medicine; ATTEND Internal Medicine
DX: N45.3 Epididymo-orchitis (principal); R00.1 Bradycardia, unspecified; I27.20 Pulmonary hypertension, unspecified; I08.2 Rheumatic disorders of both aortic and tricuspid valves; J43.9 Emphysema, unspecified; I13.0 Hypertensive heart and chronic kidney disease with heart failure and stage 1 through stage 4 chronic kidney disease, or unspecified chronic kidney disease; I50.9 Heart failure, unspecified; N18.9 Chronic kidney disease, unspecified; E11.22 Type 2 diabetes mellitus with diabetic chronic kidney disease; F17.210 Nicotine dependence, cigarettes, uncomplicated; I89.0 Lymphedema, not elsewhere classified; I25.10 Atherosclerotic heart disease of native coronary artery without angina pectoris; E78.00 Pure hypercholesterolemia, unspecified; E66.01 Morbid (severe) obesity due to excess calories; E11.40 Type 2 diabetes mellitus with diabetic neuropathy, unspecified; E11.51 Type 2 diabetes mellitus with diabetic peripheral angiopathy without gangrene; E78.5 Hyperlipidemia, unspecified; G47.33 Obstructive sleep apnea (adult) (pediatric); N20.0 Calculus of kidney; I87.8 Other specified disorders of veins; Z68.41 Body mass index [BMI] 40.0-44.9, adult; Z99.81 Dependence on supplemental oxygen; Z79.4 Long term (current) use of insulin
CPT/HCPCS: 36415; 74176; 80048; 80053; 80061; 81003; 82948; 83036; 83735; 84100; 84443; 85025; 87040; 87491; 87591; 90674; 93005; 93306; 93975; 94640; 96365; 97116; 97161; 99285; G0008; G0378; G8978; G8979; G8980; J0696; J1650

== ENCOUNTER 2017-02-19 18:42 | Inpatient (IN) | payer MEDICARE, BC ==
[2017-02-19] MEDS ORDERED: Sodium Chloride 0.9% 1,000 ML IV ONE (19:48)
--- NOTE | 2017-02-19 20:12 | ED PDOC ---
Arrival/HPI - General Time Seen by Provider: 02/19/17 19:25 Historian: Patient - History of Present Illness Narrative History of Present Illness (Text): 02/19/17 20:12 A 76 year old male, whose past medical history includes type II diabetes, hypertension, COPD, recurrent lower leg cellulitis and chronic edema, presents to the emergency department complaining of generalized weakness. Patient notes subjective fevers, chills and mild shortness of breath, which he associates with his COPD. Patient also notes low blood pressure. He reports being on valsartan and recently having his dosage reduced. Patient denies any nausea, vomiting, diarrhea, abdominal pain, chest pain, cough or any other complaints. PMD: Dr. Reese Time/Duration: Other (today) Symptom Course: Unchanged Quality: Other Context: Home Past Medical History - Provider Review Nursing Documentation Reviewed: Yes - Past History Past History: Non-Contributing - Infectious Disease Hx of Infectious Diseases: None - Tetanus Immunization Tetanus Immunization: Unknown - Cardiac Hx Congestive Heart Failure: Yes Hx Hypertension: Yes - Pulmonary Hx Chronic Obstructive Pulmonary Disease (COPD): Yes - Neurological Hx Neurological Disorder: Yes (weakness) Hx Dementia: Yes Hx Dizziness: Yes - HEENT Hx HEENT Disorder: Yes Hx Cataracts: Yes (b/l cataract sx) - Renal Hx Renal Failure: Yes - Endocrine/Metabolic Hx Diabetes Mellitus Type 2: Yes - Hematological/Oncological Hx Blood Disorders: No Hx Cancer: (pt denies) - Integumentary Hx Dermatological Disorder: Yes Other/Comment: LYMPEDEMA BILATERAL LE, +4 pitting edema and dry leathery, painful , red lower legs, both lower legs wrapped - Musculoskeletal/Rheumatological Hx Arthritis: Yes - Gastrointestinal Hx Gastrointestinal Disorders: No - Genitourinary/Gynecological Hx Genitourinary Disorders: Yes (URINARY RETENTION) Hx Prostate Problems: Yes (bph) Hx Urinary Tract Infection: Yes - Psychiatric Hx Psychophysiologic Disorder: Yes Hx Depression: Yes Hx Emotional Abuse: No Hx Physical Abuse: No Hx Substance Use: No - Past Surgical History Past Surgical History: No Previous - Surgical History Other/Comment: polyps removed in rectum - Anesthesia Hx Anesthesia: Yes Hx Anesthesia Reactions: No Hx Malignant Hyperthermia: No - Suicidal Assessment Feels Threatened In Home Enviroment: No Family/Social History - Physician Review Nursing Documentation Reviewed: Yes Family/Social History: No Known Family HX Smoking Status: Heavy Smoker > 10 Cigarettes Daily Hx Alcohol Use: No Hx Substance Use: No Hx Substance Use Treatment: No Allergies/Home Meds Allergies/Adverse Reactions: Allergies No Known Allergies Allergy (Verified 07/24/16 19:45) Home Medications: Home Meds Medication Instructions Recorded Confirmed Atorvastatin [Lipitor] 20 mg PO DAILY 04/05/12 02/19/17 Clopidogrel [Plavix] 75 mg PO DAILY 04/05/12 02/19/17 Insulin Lispro [Humalog (Insulin 5 unit SQ BID 12/31/16 02/19/17 Lispro)] SITagliptin [Januvia] 100 mg PO DAILY 12/31/16 02/19/17 Valsartan [Diovan] 40 mg PO DAILY 12/31/16 02/19/17 Review of Systems - Physician Review All systems were reviewed & negative as marked: Yes - Review of Systems Constitutional: Fevers, Night Sweats, Other (generalized weakness) Respiratory: SOB. absent: Cough Cardiovascular: absent: Chest Pain Gastrointestinal: absent: Abdominal Pain, Diarrhea, Nausea, Vomiting Physical Exam Vital Signs Reviewed: Yes Vital Signs Temp Pulse Resp BP Pulse Ox 02/20/17 00:44 80 16 108/47 L 99 02/19/17 23:00 98.5 F 86 16 101/48 L 100 02/19/17 21:00 98.6 F 75 18 100/50 L 99 02/19/17 19:28 98.3 F 87 20 90/40 L 97 Temperature: Afebrile Blood Pressure: Hypotensive Pulse: Regular Respiratory Rate: Normal Appearance: Positive for: Well-Appearing, Non-Toxic, Comfortable Pain Distress: None Mental Status: Positive for: Alert and Oriented X 3 - Systems Exam Head: Present: Atraumatic, Normocephalic Pupils: Present: PERRL Extroacular Muscles: Present: EOMI Conjunctiva: Present: Normal Mouth: Present: Moist Mucous Membranes Neck: Present: Normal Range of Motion Respiratory/Chest: Present: Good Air Exchange, Rhonchi (bilaterally). No: Respiratory Distress, Accessory Muscle Use Cardiovascular: Present: Regular Rate and Rhythm, Normal S1, S2. No: Murmurs Abdomen: Present: Normal Bowel Sounds. No: Tenderness, Distention, Peritoneal Signs Back: Present: Normal Inspection Upper Extremity: Present: Normal Inspection. No: Cyanosis, Edema Lower Extremity: Present: Other (chronic lower venous stasis changes, lymphedema, erythema,weeping wounds in lower legs). No: Edema Neurological: Present: GCS=15, CN II-XII Intact, Speech Normal, Motor Func Grossly Intact, Normal Sensory Function Skin: Present: Warm, Dry, Normal Color. No: Rashes Psychiatric: Present: Alert, Oriented x 3, Normal Insight, Normal Concentration Medical Decision Making ED Course and Treatment: 02/19/17 20:12 Impression: A 76 year old male with generalized weakness, fever, chills and mild shortness of breath Plan: -- Chest xray -- EKG -- Labs -- Blood and Urine culture -- Urinalysis -- IV fluids -- Reassess and disposition Progress Notes: 02/20/17 00:41 Chest X-ray reviewed, shows no acute processes. 02/20/17 00:[address] Reese, who is aware and agrees to plan. Accepts patient under his service. - Lab Interpretations Lab Results: 02/19/17 21:38 02/19/17 21:38 Lab Results 02/20/17 00:02: pO2 53, VBG pH 7.40, VBG pCO2 73.0 H*, VBG HCO3 45.2 H, VBG Total CO2 47.4 H, VBG O2 Sat (Calc) 91.4 H, VBG Base Excess 16.5 H, VBG Potassium 4.4, Sodium 138.0, Chloride 98.0, Glucose 126 H, Lactate 1.2, FiO2 21.0, Venous Blood Potassium 4.4 02/19/17 21:38: PT 12.7 H, INR 1.11 H, APTT 29.5 02/19/17 21:38: WBC 10.1 D, RBC 3.35 L, Hgb 10.2 L, Hct 32.9 L, MCV 98.2, MCH 30.4, MCHC 31.0, RDW 14.0, Plt Count 229, MPV 11.6 H 02/19/17 21:38: Sodium 140, Chloride 93 L, Potassium 4.4, Carbon Dioxide 41 H D , Anion Gap 10, BUN 50 H, Creatinine 2.0 H, Est GFR ( Amer) 39, Est GFR ( Non-Af Amer) 33, Random Glucose 98, Calcium 9.5, Total Bilirubin 0.2, AST 28, ALT 22, Alkaline Phosphatase 60, Lactate Dehydrogenase 291 L, Total Creatine Kinase 32 L, Troponin I 0.08 D, NT-Pro-B Natriuret Pep 458 H, Total Protein 7.2 , Albumin 3.8, Globulin 3.4, Albumin/Globulin Ratio 1.1 02/19/17 21:08: POC Glucose (mg/dL) 98 02/19/17 21:00: Sodium Cancelled, Chloride Cancelled, Potassium Cancelled, Carbon Dioxide Cancelled, Anion Gap Cancelled, BUN Cancelled, Creatinine 2.2 H, Est GFR ( Amer) Cancelled, Est GFR (Non-Af Amer) Cancelled, Random Glucose Cancelled, Calcium Cancelled, Phosphorus Cancelled, Magnesium Cancelled , Total Bilirubin Cancelled, AST Cancelled, ALT Cancelled, Alkaline Phosphatase Cancelled, Lactate Dehydrogenase Cancelled, Total Creatine Kinase Cancelled, Troponin I Cancelled, NT-Pro-B Natriuret Pep Cancelled, Total Protein Cancelled , Albumin Cancelled, Globulin Cancelled, Albumin/Globulin Ratio Cancelled 02/19/17 21:00: pO2 Cancelled, VBG pH Cancelled, VBG pCO2 Cancelled, VBG HCO3 Cancelled, VBG Total CO2 Cancelled, VBG O2 Sat (Calc) Cancelled, VBG Base Excess Cancelled, VBG Potassium Cancelled, A-a O2 Difference Cancelled, Sodium Cancelled, Chloride Cancelled, Glucose Cancelled, Lactate Cancelled, Liter Flow Cancelled, FiO2 Cancelled, PEEP Cancelled, Pressure Support Cancelled, CPAP Cancelled, Expiratory BiPAP Cancelled, Blood Gas Comments Cancelled, Crit Value Called To Cancelled, Crit Value Called By Cancelled, Crit Value Read Back Cancelled, Blood Gas Notified Time Cancelled, Venous Blood Potassium Cancelled 02/19/17 21:00: PT 10.0, INR 0.88 L, APTT 28.4 02/19/17 21:00: WBC 13.3 H D, RBC 4.01, Hgb 11.9 L, Hct 37.5 L, MCV 93.5, MCH 29.7, MCHC 31.7, RDW 18.2 H, Plt Count 275, MPV 11.4 H, Gran % 84.2 H, Lymph % ( Auto) 9.9 L, Bowman % (Auto) 5.2, Eos % (Auto) 0.5 L, Baso % (Auto) 0.2, Gran # 11.23 H, Lymph # 1.3, Bowman # 0.7 H, Eos # 0.1, Baso # 0.02 I have reviewed the lab results: Yes - RAD Interpretation Radiology Orders: 02/19/17 19:48 CHEST PORTABLE [RAD] Stat - Medication Orders Current Medication Orders: Ceftriaxone Sodium (Rocephin 1 Gram Ivpb) 1 gm in 100 mls @ 200 mls/hr IV ONCE STA PRN Reason: Protocol Stop: 02/20/17 01:07 Doxycycline Hyclate 100 mg/ (Sodium Chloride) 100 mls @ 100 mls/hr IVPB ONCE ONE PRN Reason: Protocol Stop: 02/20/17 01:38 Sodium Chloride (Sodium Chloride 0.9%) 1,000 mls @ 100 mls/hr IV .Q10H STA Stop: 02/20/17 10:49 Discontinued Medications Sodium Chloride (Sodium Chloride 0.9%) 1,000 mls @ 2,000 mls/hr IV .Q30M ONE Stop: 02/19/17 20:17 Last Admin: 02/19/17 22:45 Dose: 2,000 mls/hr eMAR Start Stop Document 02/19/17 22:45 AB (Rec: 02/19/17 22:45 AB [id number]) Intravenous Solution Start Date 02/19/17 Start Time 20:17 End Date 02/19/17 - Scribe Statement The provider has reviewed the documentation as recorded by the Gege Carrion Provider Scribe Attestation: All medical record entries made by the Myriamibfredy were at my direction and personally dictated by me. I have reviewed the chart and agree that the record accurately reflects my personal performance of the history, physical exam, medical decision making, and the department course for this patient. I have also personally directed, reviewed, and agree with the discharge instructions and disposition. Disposition/Present on Arrival - Present on Arrival Any Indicators Present on Arrival: No History of DVT/PE: No History of Uncontrolled Diabetes: Yes Urinary Catheter: No History Surgical Site Infection Following: None - Disposition Have Diagnosis and Disposition been Completed?: Yes Diagnosis: Cellulitis, COPD exacerbation, Renal insufficiency, Dehydration Disposition Time: 00:57 Patient Plan: Admission Patient Problems: Current Active Problems Problem Status Onset Weakness Acute Cellulitis Chronic Condition: STABLE
[2017-02-19 21:12] LABS: BASO # 0.02 K/mm3 (0.0-2.0); BASO % 0.2 % (0.0-3.0); EOS # 0.1 (0.0-0.7); EOS % 0.5 % (1.5-5.0); GRAN # 11.23 (1.4-6.5); GRAN % 84.2 % (50.0-68.0); HEMOGLOBIN 11.9 g/dL (14.0-18.0); LYMPH # 1.3 (1.2-3.4); LYMPH % 9.9 % (22.0-35.0); MEAN CELL VOLUME 93.5 fl (80.0-105.0); MEAN CORPUSCULAR HEMOGLOBIN 29.7 pg (25.0-35.0); MEAN CORPUSCULAR HGB CONC 31.7 g/dl (31.0-37.0); MEAN PLATELET VOLUME 11.4 fl (7.0-11.0); MONO # 0.7 (0.1-0.6); MONO % 5.2 % (1.0-6.0); RBC 4.01 10^6/uL (3.5-6.1); RED CELL DISTRIBUTION WIDTH 18.2 % (11.5-14.5); WHITE BLOOD COUNT 13.3 10^3/ul (4.5-11.0)
[2017-02-19 21:33] LABS: INR 0.88 (0.93-1.08); PARTIAL THROMBOPLASTIN TIME 28.4 Seconds (25.1-36.5)
[2017-02-19 21:54] LABS: HEMOGLOBIN 10.2 g/dL (14.0-18.0); MEAN CELL VOLUME 98.2 fl (80.0-105.0); MEAN CORPUSCULAR HEMOGLOBIN 30.4 pg (25.0-35.0); MEAN PLATELET VOLUME 11.6 fl (7.0-11.0); RBC 3.35 10^6/uL (3.5-6.1); WHITE BLOOD COUNT 10.1 10^3/ul (4.5-11.0)
[2017-02-19 22:10] LABS: INR 1.11 (0.93-1.08); PARTIAL THROMBOPLASTIN TIME 29.5 Seconds (25.1-36.5); PROTHROMBIN TIME 12.7 SECONDS (9.4-12.5)
[2017-02-19 22:17] LABS: TROPONIN I 0.08 ng/mL
[2017-02-19 22:26] LABS: ALB/GLOB RATIO 1.1 (1.1-1.8); ALBUMIN 3.8 g/dL (3.0-4.8); CALCIUM 9.5 mg/dL (8.4-10.5)
[2017-02-20] MEDS ORDERED: cefTRIAXone 1 gm 1 GM/100 ML BAG IV STA (00:38)
[2017-02-20 00:40] LABS: VENOUS BLOOD GAS BASE EXCESS 16.5 mmol/L (0.0-2.0); VENOUS BLOOD GAS PO2 53 mm/Hg (30-55)
[2017-02-20] MEDS ORDERED: Sodium Chloride 0.9% 1,000 ML IV STA (00:50)
[2017-02-20] MEDS ORDERED: Albuterol-Ipratrop 3 mg / 0.5 (3 ml) UD IH STA (01:00)
[2017-02-20 01:24] LABS: ARTERIAL BLOOD GAS HEMOGLOBIN 9.9 g/dL (11.7-17.4); ARTERIAL BLOOD GAS O2 CAPACITY 13.2 mL/dl (16-24); ARTERIAL BLOOD GAS O2 CONTENT 12.6 ML/dl (15-23); ARTERIAL BLOOD GAS O2 SAT 95.3 % (95-98); ARTERIAL BLOOD GAS PCO2 57 mm/Hg (35-45); ARTERIAL BLOOD GAS PH 7.48 (7.35-7.45); ARTERIAL BLOOD GAS TCO2 44.1 mmol.L (22-28)
[2017-02-20 01:39] LABS: ARTERIAL BLOOD GAS HCO3 42.4 mmol/L (21-28)
[2017-02-20 07:17] LABS: PH,URINE 6.5 (4.7-8.0); URINE BILIRUBIN NEGATIVE (NEGATIVE); URINE BLOOD NEGATIVE (NEGATIVE); URINE GLUCOSE (UA) NEGATIVE (NEGATIVE); URINE LEUKOCYTE ESTERASE NEGATIVE Leu/uL (NEGATIVE); URINE NITRATE NEGATIVE (NEGATIVE); URINE PROTEIN TRACE mg/dL (<30 mg/dL); URINE UROBILINOGEN 0.2 E.U./dL (<1 E.U./dL)
[2017-02-20 07:18] LABS: URINE APPEARANCE CLEAR (CLEAR); URINE COLOR YELLOW (YELLOW)
[2017-02-20 07:50] LABS: URINE RBC NEGATIVE /hpf (0-2); URINE WBC NEGATIVE /hpf (0-6)
--- NOTE | 2017-02-20 10:39 | CP.PCM.CON ---
History of Present Illness - History of Present Illness History of Present Illness: 76 year old male with PMH of HTN, dyslipidemia, chronic CHF, CAD, COPD, chronic renal failure, DM, obesity with BMI 38, peripheral vascular disease, obstructive sleep apnea, dementia, history of pneumonia came in to [facility] because of generalized weakness associated with cough and sputum production (thick clear phlegm for the past 3-4 days). He also is stating that he had subjective fever and chills but no fever was noted here in the ED, with some SOB especially on exertion. He denies headache or dizziness, no chest pain , no SOB currently, no cough, no abdominal pain, no diarrhea, no dysuria. He has chronic lower extremity swelling and ulcerations. Infectious diseases consult is requested to further evaluate and manage. Review of Systems - Review of Systems All systems: reviewed and no additional remarkable complaints except (as per HPI ) Past Patient History - Infectious Disease Hx of Infectious Diseases: None - Tetanus Immunizations Tetanus Immunization: Unknown - Past Social History Smoking Status: Heavy Smoker > 10 Cigarettes Daily - CARDIAC Hx Congestive Heart Failure: Yes Hx Hypertension: Yes - PULMONARY Hx Chronic Obstructive Pulmonary Disease (COPD): Yes - NEUROLOGICAL Hx Neurological Disorder: Yes (weakness) Hx Dementia: Yes Hx Dizziness: Yes - HEENT Hx HEENT Problems: Yes Hx Cataracts: Yes (b/l cataract sx) - RENAL Hx Renal Failure: Yes - ENDOCRINE/METABOLIC Hx Diabetes Mellitus Type 2: Yes - HEMATOLOGICAL/ONCOLOGICAL Hx Blood Disorders: No Hx Cancer: (pt denies) - INTEGUMENTARY Hx Dermatological Problems: Yes Other/Comment: LYMPEDEMA BILATERAL LE, +4 pitting edema and dry leathery, painful , red lower legs, both lower legs wrapped - MUSCULOSKELETAL/RHEUMATOLOGICAL Hx Arthritis: Yes - GASTROINTESTINAL Hx Gastrointestinal Disorders: No - GENITOURINARY/GYNECOLOGICAL Hx Genitourinary Disorders: Yes (URINARY RETENTION) Hx Prostate Problems: Yes (bph) Hx Urinary Tract Infection: Yes - PSYCHIATRIC Hx Psychophysiologic Disorder: Yes Hx Depression: Yes Hx Emotional Abuse: No Hx Physical Abuse: No Hx Substance Use: No - SURGICAL HISTORY Other/Comment: polyps removed in rectum - ANESTHESIA Hx Anesthesia: Yes Hx Anesthesia Reactions: No Hx Malignant Hyperthermia: No Meds Allergies/Adverse Reactions: Allergies Allergy/AdvReac Type Severity Reaction Status Date / Time No Known Allergies Allergy Verified 07/24/16 19:45 - Medications Medications: Current Medications Sodium Chloride (Sodium Chloride 0.9%) 1,000 mls @ 100 mls/hr IV .Q10H STA Stop: 02/20/17 10:49 Last Admin: 02/20/17 01:18 Dose: 100 mls/hr Physical Exam - Constitutional Appears: Non-toxic, Chronically Ill - Head Exam Head Exam: NORMAL INSPECTION - ENT Exam ENT Exam: Mucous Membranes Moist - Neck Exam Neck exam: Negative for: Lymphadenopathy, Meningismus - Respiratory Exam Respiratory Exam: Decreased Breath Sounds - Cardiovascular Exam Cardiovascular Exam: +S1, +S2 - GI/Abdominal Exam GI & Abdominal Exam: Soft. absent: Tenderness - Extremities Exam Additional comments: both legs with dressings in place Results - Vital Signs Recent Vital Signs: Last Vital Signs Temp 98.7 F 02/20/17 05:00 Pulse 95 H 02/20/17 05:00 Resp 16 02/20/17 05:00 BP 128/65 02/20/17 05:00 Pulse Ox 97 02/20/17 05:00 - Labs Result Diagrams: 02/19/17 21:38 02/19/17 21:38 Labs: Laboratory Results - last 24 hr 02/20/17 01:10 pCO2 57 H pO2 61.0 L HCO3 42.4 H* ABG pH 7.48 H ABG Total CO2 44.1 H ABG O2 Saturation 95.3 ABG O2 Content 12.6 L ABG Base Excess 16.7 H ABG Hemoglobin 9.9 L ABG Carboxyhemoglobin 5.0 H POC ABG HHb (Measured) 4.4 ABG Methemoglobin 0.6 ABG O2 Capacity 13.2 L Hgb O2 Saturation 90.0 L FiO2 28.0 Assessment & Plan - Assessment and Plan (Free Text) Plan: Assessment Systemic Inflammatory Response Syndrome, consider COPD exacerbation as well as bilateral lower extremity cellulitis on top of chronic venous stasis history of epidydimitis HTN dyslipidemia chronic CHF CAD COPD chronic renal failure DM obesity with BMI 38 peripheral vascular disease obstructive sleep apnea dementia history of pneumonia Plan Started patient on cefepime and doxycycline pending blood, sputum cx, PCT; reviewed CXR; follow Podiatry evaluation and recommendations will monitor clinically
[2017-02-20] MEDS: Cefepime 1gm in NS 100ml 1 GM/100 ML BAG IVPB SCH ×3 (11:06→21:29)
[2017-02-20] MEDS: Insulin Lispro 1 UNITS/0.01 ML SC SCH ×2 (11:09→17:37)
[2017-02-20] MEDS: Insulin Detemir 100 units/ml Vial (Levemir) SC SCH (12:05)
--- NOTE | 2017-02-20 12:26 | CARD ---
APPROVED REPORT EKG Measurement Heart [id number] <Conclusion> Sinus rhythm with 1st degree AV block Left axis deviation Low voltage QRS Right bundle branch block Inferior infarct, age undetermined Cannot rule out Anterior infarct, age undetermined Abnormal ECG
--- NOTE | 2017-02-20 13:57 | RAD ---
HISTORY: Sepsis Patient COMPARISON: 08/10/2016 FINDINGS: LUNGS: No active pulmonary disease. PLEURA: No significant pleural effusion identified, no pneumothorax apparent. CARDIOVASCULAR: No radiographic findings to suggest acute or significant cardiovascular disease. OSSEOUS STRUCTURES: No significant abnormalities. VISUALIZED UPPER ABDOMEN: Normal. OTHER FINDINGS: None. IMPRESSION: No active disease. No significant interval change compared to the prior examination(s).
[2017-02-20] MEDS ORDERED: Pneumococcal 23-Valent Vaccine IM ONE (15:38)
[2017-02-20] MEDS ORDERED: Influenza Vaccine 60 mcg/0.5 mL SYR (4YR UP) IM ONE (15:38)
[2017-02-20 15:39] VITALS: BMI 39.9
--- NOTE | 2017-02-20 21:41 | CON ---
DATE: 02/20/2017 REASON FOR CONSULTATION: Chronic kidney disease stage III/IV, acute kidney injury, and cellulitis. HISTORY OF PRESENT ILLNESS: A 76-year-old male with history of morbid obesity, hypertension, hyperlipidemia, NIDDM, CHF, CAD, chronic kidney disease stage III/IV, peripheral vascular disease, COPD, and sleep apnea was admitted because of generalized weakness, cough, shortness of breath, and phlegm. The patient also reported some fever at home. Afebrile in the Emergency Room. Baseline creatinine is around 1.5 to 1.6. Consultation is requested because of creatinine of 2.2 at the time of admission. He also has chronic lower extremity swelling and chronic lower extremity ulcers. PAST MEDICAL AND SURGICAL HISTORY: As mentioned above; NIDDM, hypertension, COPD, obstructive sleep apnea, chronic kidney disease stage III/IV, CHF, cardiomyopathy, morbid obesity, peripheral vascular disease, and nonhealing ulcers. FAMILY HISTORY: Noncontributory. SOCIAL HISTORY: Ex-smoker, no alcohol use, and no IV drug abuse. ALLERGIES: NO KNOWN DRUG ALLERGIES. MEDICATIONS AT HOME: Plavix, Diovan 40 mg daily, glyburide, Januvia, Daliresp, and Lipitor 20. REVIEW OF SYSTEMS: All systems are reviewed, pertinent positives as mentioned in history of presenting illness, rest unremarkable. PHYSICAL EXAMINATION: GENERAL: Obese elderly male sitting in chair. VITAL SIGNS: Blood pressure 133/69, heart rate 99, respiratory rate 90, and temperature 97.9. HEENT: Normocephalic and atraumatic. NECK: Supple. No JVD. LUNGS: Bilateral equal air entry, bilateral rhonchi, distant breath sounds, and equal expansion. CARDIAC: S1 and S2, regular rate and rhythm. No murmur. No rub. ABDOMEN: Obese, distended, soft, nontender, and bowel sounds present. EXTREMITIES: Chronic stasis changes, dressing of the lower legs, edema. LABORATORY DATA: WBC 10, hemoglobin 10.2, hematocrit 33, and platelets 229. Sodium 140, potassium 4.4, chloride 93, CO2 of 41, BUN 50, creatinine 2.0, glucose 98, and calcium 9.5. AST 28, ALT 22, and albumin 3.8. BNP 458. Urinalysis; yellow clear, pH of 6.0, specific gravity 1.010, protein trace, ketones trace, blood negative, negative, and leukocyte esterase negative. Chest x-ray, no active pulmonary disease. No pleural effusion. CURRENT MEDICATIONS: Doxycycline 100 q.12 hours, insulin, Januvia, Levemir, Lipitor, Lovenox, cefepime 1 g q.8 hours, Plavix 75, and 2 L of IV fluids given in the Emergency Room. ASSESSMENT: 1. Acute kidney injury superimposed on chronic kidney disease stage III/IV. 2. Lower extremity cellulitis. 3. Morbid obesity. 4. Iby-pmlmcjx-pgebgjqmo diabetes mellitus. 5. Hypertension. 6. Congestive heart failure, currently compensated. 7. Peripheral vascular disease. PLAN: 1. Currently, the patient appears euvolemic, the patient has received adequate fluid resuscitation. Agree with discontinuation of IV fluids. 2. on antibiotics creatinine clearance about 30 mL/minute. 3. Avoid nephrotoxins. 4. Monitor urine output closely. 5. Expect renal function to reverse to baseline. 6. Monitor fingerstick and continue insulin coverage. 7. Followup cultures. 8. Thank you for the courtesy of this consultation. We will follow this patient closely with you. Daria Constantion MD
[2017-02-21] MEDS: Albuterol-Ipratrop 3 mg / 0.5 (3 ml) UD IH SCH ×4 (01:02→19:58)
[2017-02-21] MEDS: Cefepime 1gm in NS 100ml 1 GM/100 ML BAG IVPB SCH ×2 (05:21→13:32)
--- NOTE | 2017-02-21 06:53 | CON ---
DATE: 02/20/2017 REFERRING PHYSICIAN: Dr. Reese. REASON FOR CONSULTATION: Chronic lung disease, history of lung nodule, recurrent cellulitis of lower extremity, has a lymphedema. HISTORY OF PRESENT ILLNESS: This is a 76 years old gentleman, known to me from office on previous admission, noncompliant with the followup, has multiple medical issues including chronic obstructive lung disease, morbid obesity, sleep apnea syndrome, noncompliant with CPAP and BiPAP, history of right bronchial nodule, hypertension, diabetes, cardiomyopathy, renal failure, comes into emergency room with shortness of breath, cough, sputum production, lower extremity edema and erythema, started on bronchodilator, refusing to use CPAP. No nausea, no vomiting. PAST MEDICAL HISTORY: As per history of present illness. ALLERGIES: NONE KNOWN. SOCIAL HISTORY: Ex-smoker. Denies any alcohol use. FAMILY HISTORY: No significant cardiopulmonary disease reported. MEDICATIONS: He is on doxycycline 100 mg twice a day, insulin coverage, Januvia 50 mg daily, Levemir 20 units subcu daily, Lipitor 20 mg daily, Lovenox 30 mg daily, cefepime 1 gm IV q.8 hours, Nicoderm patch daily, Plavix 75 mg daily. REVIEW OF SYSTEMS: No headache, no rhinitis. Has cough, shortness of breath. No chest pain. No nausea, no vomiting, no diarrhea. Has a lower extremity lymphedema with oozing ulcer. PHYSICAL EXAMINATION: GENERAL: Sitting up, mild distress. VITAL SIGNS: Temperature is 98, heart rate is 94, respiratory rate is 20, blood pressure 144/76, pulse ox 97% on nasal cannula. HEENT: Moist mucous membranes. Crowded airway. Mallampati score is IV. NECK: Supple. No JVD. LUNGS: Has wheezing, prolongation expiratory phase. HEART: S1 and S2. ABDOMEN: Soft, nontender. No organomegaly. EXTREMITIES: Lymphedema with erythema and oozing ulcers with dressing. NEUROLOGIC: Awake and follows simple commands. LABORATORY DATA: Shows hemoglobin 10.2, hematocrit 32.9, WBC 10.1, platelet is 229. Sed rate is 55. INR 1.11. PTT is 30. Has ABG done which shows pH 7.48, pCO2 of 57, O2 is 61. C-reactive protein 0.86, procalcitonin 0.05. Sodium 140, potassium 4.4, chloride 93, bicarbonate 41, BUN 50, creatinine 2.0, AST 28, ALT 22, alk phos is 60. Albumin is 3.8. Chest x-ray done in ER shows no active disease. No significant interval changes. IMPRESSION AND PLAN: Chronic obstructive lung disease, sleep apnea syndrome, hypoventilation syndrome, morbid obesity, diabetes, has a right mainstem bronchus lung nodule, peripheral neuropathy, chronic stasis ulceration and inflammation, has a lymphedema. From pulmonary point of view, we will add inhaled bronchodilator. Keep head at 45 degrees. Sleep apnea precaution, avoid sedation. Antibiotics as per infectious diseases, fall precaution. Still refusing to use CPAP/BiPAP. Thank you, and we will follow with you Lucia Garza MD
[2017-02-21 09:03] VITALS: RESP 20
[2017-02-21 09:05] LABS: HEMOGLOBIN 9.8 g/dL (14.0-18.0); MEAN CELL VOLUME 97.5 fl (80.0-105.0); MEAN CORPUSCULAR HEMOGLOBIN 30.3 pg (25.0-35.0); MEAN CORPUSCULAR HGB CONC 31.1 g/dl (31.0-37.0); MEAN PLATELET VOLUME 11.5 fl (7.0-11.0); RBC 3.23 10^6/uL (3.5-6.1); RED CELL DISTRIBUTION WIDTH 14.4 % (11.5-14.5); WHITE BLOOD COUNT 9.1 10^3/ul (4.5-11.0)
[2017-02-21 09:13] LABS: CALCIUM 8.9 mg/dL (8.4-10.5)
[2017-02-21] MEDS: Insulin Detemir 100 units/ml Vial (Levemir) SC SCH (10:58)
[2017-02-21] MEDS: Enoxaparin 30 mg Syringe SC SCH (10:58)
[2017-02-21] MEDS: Insulin Lispro 1 UNITS/0.01 ML SC SCH ×2 (10:58→18:19)
[2017-02-21] MEDS ORDERED: Benzocaine/Menthol (Cepacol) Lozenge MT PRN (13:53)
--- NOTE | 2017-02-21 15:07 | CP.PCM.PN ---
Subjective - Date & Time of Evaluation Date of Evaluation: 02/21/17 Time of Evaluation: 11:00 - Subjective Subjective: Breathing a little better today, no fevers overnight, not in distress. Objective - Vital Signs/Intake and Output Vital Signs (last 24 hours): Temp Pulse Resp BP Pulse Ox 98.5 F 89 20 120/56 L 100 02/21/17 09:02 02/21/17 09:02 02/21/17 09:02 02/21/17 09:02 02/21/17 09:02 Intake and Output: 02/21/17 02/21/17 06:59 18:59 Intake Total 540 480 Output Total 900 700 Balance -360 -220 - Medications Medications: Current Medications Acetazolamide (Diamox 250 Mg Tab) 250 mg PO DAILY [facility] Stop: 02/22/17 23:59 Acetylcysteine (Acetylcysteine 20%) 3 ml PO BID [facility] Albuterol/Ipratropium (Duoneb 3 Mg/0.5 Mg (3 Ml) Ud) 3 ml [id number] [facility] Last Admin: 02/21/17 07:32 Dose: 3 ml Atorvastatin Calcium (Lipitor) 20 mg PO DAILY [facility] Last Admin: 02/20/17 11:09 Dose: 20 mg Clopidogrel Bisulfate (Plavix) 75 mg PO DAILY [facility] Last Admin: 02/20/17 11:10 Dose: 75 mg Enoxaparin Sodium (Lovenox) 30 mg SC DAILY [facility] PRN Reason: Protocol Doxycycline Hyclate 100 mg/ (Sodium Chloride) 100 mls @ 100 mls/hr IVPB Q12 [facility] PRN Reason: Protocol Last Admin: 02/20/17 21:35 Dose: 100 mls/hr Cefepime HCl (Maxipime 1gm) 1 gm in 100 mls @ 100 mls/hr IVPB Q8 [facility] PRN Reason: Protocol Last Admin: 02/21/17 05:21 Dose: 100 mls/hr Insulin Detemir (Levemir) 10 unit SC DAILY [facility] Last Admin: 02/20/17 12:05 Dose: 10 unit Insulin Human Lispro (Humalog) 5 units SC BIDAC [facility] Last Admin: 02/20/17 17:37 Dose: 5 units Nicotine (Nicoderm Cq) 1 patch TD DAILY [facility] Last Admin: 02/20/17 16:23 Dose: 1 patch Sitagliptin Phosphate (Januvia) 50 mg PO DAILY [facility] - Labs Labs: 02/21/17 08:50 02/21/17 08:50 PT 12.7 SECONDS (9.4-12.5) H 02/19/17 21:38 INR 1.11 (0.93-1.08) H 02/19/17 21:38 APTT 29.5 Seconds (25.1-36.5) 02/19/17 21:38 - Constitutional Appears: Non-toxic - Head Exam Head Exam: NORMAL INSPECTION - ENT Exam ENT Exam: Mucous Membranes Moist - Neck Exam Neck Exam: absent: Meningismus - Respiratory Exam Respiratory Exam: Decreased Breath Sounds - Cardiovascular Exam Cardiovascular Exam: +S1, +S2 - GI/Abdominal Exam GI & Abdominal Exam: Soft. absent: Tenderness - Extremities Exam Additional comments: both legs with dressings in place Assessment and Plan - Assessment and Plan (Free Text) Plan: Assessment Systemic Inflammatory Response Syndrome, consider COPD exacerbation as well as bilateral lower extremity cellulitis on top of chronic venous stasis history of epidydimitis HTN dyslipidemia chronic CHF CAD COPD chronic renal failure DM obesity with BMI 38 peripheral vascular disease obstructive sleep apnea dementia history of pneumonia Plan continue cefepime and doxycycline day 2; blood cx are negative; follow up sputum cx; PCT is low; reviewed CXR; follow Podiatry evaluation and recommendations will continue to monitor clinically
--- NOTE | 2017-02-21 17:24 | PN ---
DATE: 02/21/2017 SUBJECTIVE: The patient is seen, sitting in chair. He is awake, he is alert, he is comfortable. He complains of cough. He complains of clear viscid phlegm. He also complains of choking sensation. He denies any fevers. Denies any chills. PHYSICAL EXAMINATION: GENERAL: Obese, elderly male, sitting in chair. VITAL SIGNS: Blood pressure 120/56, heart rate 89, respiratory rate 20, temperature 98.5. HEENT: Normocephalic, atraumatic, positive pallor. NECK: Supple, no JVD. LUNGS: Bilateral equal air entry, bilateral equal expansion, no rales. CARDIAC: S1, S2, regular rate and rhythm, no murmur, no rub. ABDOMEN: Obese, distended, soft, nontender, bowel sounds present. EXTREMITIES: Chronic stasis changes, dressing of both lower extremities. INTAKE AND OUTPUT: 1200/1100. LABORATORY DATA: WBC 9, hemoglobin 9.8, hematocrit 32, platelets 225. Sodium 138, potassium 4.7, chloride 95, CO2 34, BUN 44, creatinine 1.5, glucose 201, calcium 8.9. Urinalysis: Yellow, clear, pH 6.5, specific gravity 1.010, protein trace, ketones trace, nitrite negative, leukocyte esterase negative. Blood culture, no growth. CURRENT MEDICATIONS: Mucomyst, Cepacol, Diamox 250 daily, doxycycline 100 q.12, DuoNeb, insulin, Januvia, Lasix 40 IV daily, Levemir, Lipitor, Lovenox, cefepime 1 gm, Plavix, prednisone. ASSESSMENT: 1. Acute kidney injury, resolved. 2. Stable chronic kidney disease, stage III. 3. Bronchitis/chronic obstructive pulmonary disease exacerbation. 4. Morbid obesity. 5. Nuu-lzacngd-ndkdmmwsm diabetes mellitus. 6. Hypertension. 7. Chronic lower extremity edema/cellulitis. 8. Respiratory acidosis with alkalemia. PLAN: 1. Respiratory treatments as per Pulmonary. 2. Antibiotics as per ID recommendations. 3. Dose all antibiotics for creatinine clearance about 30-50 mL/minute. 4. Monitor fingersticks. 5. Renal parameters are stable. Daria Constantino MD
[2017-02-21 18:27] VITALS: TEMP 98
--- NOTE | 2017-02-21 19:55 | HP ---
DATE OF HISTORY AND PHYSICAL: 02/20/2017 REASON FOR ADMISSION: Patient has low blood pressure, systolic was in the 80s. He had some chills, leg swelling, redness, and cough. HISTORY OF PRESENT ILLNESS: This is a 76-year-old male with history of COPD, chronic renal insufficiency, chronic leg edema, who has also history of recurrent cellulitis; came into the hospital because of blood pressure was low in the 80s to 85, was at home, the called and he was not feeling well, and came into [place] [facility] for evaluation. The patient has mild cough, but no short of breath. He has lower extremity lymphedema with chronic skin changes, in addition, some swelling and redness in the right foot. Patient denied any chest pain. He does have chronic dyspnea. He is on oxygen at home, BiPAP machine at home, but denied any fever, occasional chills. He is making urine, but lesser than before and he does take his medicine including diabetes, insulin medicine, and blood pressure medicine, Diovan 40 once a day. No other new complaints. PAST MEDICAL HISTORY: Is as I mentioned above, diabetes type 2; using insulin; chronic recurrent lower extremity cellulitis; diffuse chronic lower back pain with difficult ambulation, using crutches and using walker; chronic osteoarthritis of both knees, back, hips; hypertension; hypercholesterolemia; COPD; chronic lymphedema; morbid obesity; obstructive sleep apnea; renal insufficiency, chronic. ALLERGIES: NO KNOWN ALLERGIES. SOCIAL HISTORY: He lives with his . He is a smoker. He has two children, one is a physician, anesthesiologist and other is a pharmacist. REVIEW OF SYSTEMS: As in the present illness, difficult ambulation, lymphedema, cough, dyspnea, dysuria. PHYSICAL EXAMINATION: VITAL SIGNS: Temperature 97.9, heart rate 99, blood pressure 123/69, respirations 20, saturating 94% on 2 liters. HEAD AND NECK: Normal. No JVD. No thyromegaly. CHEST: Clear. Diminished breath sounds. CARDIAC: First sound and second sound are normal. ABDOMEN: Obese and nontender. EXTREMITIES: There is bilateral leg lymphedema with chronic skin changes and also some mild redness and tenderness on examination, right more than left. NEUROLOGIC: Moving all extremities. Alert, awake, and oriented x3. LABORATORY STUDIES: White count 15.3, hemoglobin 11.9, hematocrit 37.5, and platelets 275. Chemistry shows sodium 140, potassium 4.4, chloride 93, bicarb 41, BUN 50, creatinine is 2, initially it was 2.2. Liver function test is normal. Troponin is 0.08. ProBNP is 458. C-reactive protein is very low, 0.86. Chest x-ray, no active pulmonary disease. An electrocardiogram was done, did not show any ST elevations with sinus rhythm, left axis, low-voltage, and possible right bundle-branch block and need to rule out acute infarction, age-undetermined. IMPRESSION AND PLAN: This is a 76-year-old male with diabetes, chronic leg lymphedema, and recurrent cellulitis, came in with low blood pressures at home in the 80s, came to the emergency room for evaluation, found to have blood pressures in the low side, lymphedema, both lower extremity cellulitis, also high white count on blood CBC, leukocytosis. We will admit the patient for, 1. Dehydration. 2. Acute renal failure on top of chronic. 3. Cellulitis, both lower extremities, right more than left. We will start the patient on intravenous antibiotic. ID consult with Dr. Green. Renal consult with Dr. Constantino. We will give the patient intravenous fluids for dehydration. For other medical problems, chronic obstructive pulmonary disease, resume nebulizer treatment and for diabetes, resume insulin coverage. Continue current therapy, repeat lab in the morning. I discussed with the patient. I answered all his questions in details. Patient was concerned about waiting time in the emergency room; I explained to him that it was very crowded and busy service at night and we will continue . Continue current therapy. Follow up clinically. Continue gastrointestinal and deep venous thrombosis prophylaxis. Manoj Reese MD
[2017-02-21] MEDS: Fluticasone Nasal 50 mcg/Spray NS SCH (21:30)
--- NOTE | 2017-02-21 23:49 | US ---
HISTORY: Leg pain and swelling. Evaluate for DVT PHYSICIAN(S): Tom Park MD. TECHNIQUE: Duplex sonography and color-flow Doppler with graded compression were used to evaluate the deep venous systems of both lower extremities. The exam is limited by body habitus and edema. The tibial veins are not adequately seen. FINDINGS: The visualized deep venous systems of both lower extremities are sonographically normal and compressible. Normal wave forms and augmentation are seen. There is no sonographic evidence for deep venous thrombosis in the visualized segments of both lower extremities. IMPRESSION: No sonographic evidence for deep venous thrombosis in the visualized segments of both lower extremities. Limited study
--- NOTE | 2017-02-21 23:51 | US ---
PROCEDURE: Lower extremity NANCY exam HISTORY: Peripheral vascular disease with pain and claudication. Diabetes. Smoker PHYSICIAN(S): Tom Park MD. FINDINGS: The resting NANCY's are normal: right, 1.05and left, 0.96 The brachial systolic pressures are symmetric. The high thigh pressures and waveforms are relatively normal. The calf PVR waveforms augment normally. No significant gradients are noted across the thighs. The ankle and metatarsal waveforms are relatively normal and symmetric. No significant pressure gradients are noted across the lower legs. IMPRESSION: 1. Relatively normal NANCY and PVR examination at rest.
[2017-02-22] MEDS: Albuterol-Ipratrop 3 mg / 0.5 (3 ml) UD IH SCH ×3 (01:04→13:04)
--- NOTE | 2017-02-22 01:12 | PN ---
DATE: 02/21/2017 PULMONARY PROGRESS NOTE REFERRING PHYSICIAN: Dr. Reese SUBJECTIVE: Patient is sitting up in bed, feels better, complaining of rhinitis, post nasal drip, thick sputum, refused to use BiPAP at nighttime, but did use nebulizer treatment. No nausea. No vomiting. No diarrhea. He has a bilateral lower extremity edema and ulcers. OBJECTIVE: GENERAL: In no acute distress. VITAL SIGNS: Temperature is 98, heart rate is 98, respiratory rate is 20, blood pressure is 118/66 and pulse oximetry 100% on nasal cannula. HEENT: Moist mucous membrane. Crowded airway. Mallampati score is 4. NECK: Supple. No JVD. LUNGS: Has a scattered rhonchi. HEART: S1 and S2. ABDOMEN: Soft and nontender. No organomegaly. EXTREMITIES: Has lymphedema. NEUROLOGICAL: Awake and alert. Follows simple command. MEDICATIONS: He is on Mucomyst 20% 3 mL inhaled twice a day, Cepacol lozenges q. 2 hours p.r.n., Diamox 250 mg daily, doxycycline 100 mg twice a day, DuoNeb q. 6 hours, insulin coverage, Januvia 50 mg daily, Lasix 40 mg daily, Levemir 10 units subq, Lipitor 20 mg daily, Lovenox 30 mg daily, cefepime 1 g IV q. 8 hours, Nicoderm patch daily, Plavix 75 mg daily, prednisone 20 mg daily. LABORATORY DATA: Shows hemoglobin 9.8, hematocrit 31.5, WBC 9.1, platelet is 225, sed rate is 55. Sodium 138, potassium 4.7, chloride 95, bicarbonate 34, BUN 44, creatinine 1.5, glucose 201, calcium 8.9. Influenza A and B is negative. Microbiology: Blood culture and urine culture, there is no growth. He has ultrasound of lower extremity done, report is pending. IMPRESSION AND PLAN: Chronic obstructive lung disease, sleep apnea syndrome, hypoventilation syndrome, morbid obesity, diabetes, history of right mainstem bronchus nodule, peripheral neuropathy, chronic stasis ulceration and dermatitis, has a lymphedema. May have intersinusitis. Continue present treatment, antibiotics, p.o. and inhaled bronchodilators, steroids. We will add Mucomyst treatment q. 6 hours for a day or so, Flonase one spray each nostril twice a day, nasal saline q. 2 hours, encourage CPAP/BiPAP use while sleeping at night. Thank you and we will follow with you. Lucia Garza MD
[2017-02-22] MEDS: Cefepime 1gm in NS 100ml 1 GM/100 ML BAG IVPB SCH ×3 (01:32→14:40)
[2017-02-22] MEDS ORDERED: Acetylcysteine 20% Inhal Sol (30ml) IH SCH (02:00)
[2017-02-22 05:01] VITALS: O2SAT 99
[2017-02-22 06:56] VITALS: PULSE 86
[2017-02-22 07:21] LABS: HEMOGLOBIN 9.9 g/dL (14.0-18.0); MEAN CELL VOLUME 98.8 fl (80.0-105.0); MEAN CORPUSCULAR HEMOGLOBIN 29.8 pg (25.0-35.0); MEAN CORPUSCULAR HGB CONC 30.2 g/dl (31.0-37.0); MEAN PLATELET VOLUME 11.6 fl (7.0-11.0); RBC 3.32 10^6/uL (3.5-6.1); RED CELL DISTRIBUTION WIDTH 14.6 % (11.5-14.5); WHITE BLOOD COUNT 8.1 10^3/ul (4.5-11.0)
[2017-02-22 07:33] LABS: ALB/GLOB RATIO 1.1 (1.1-1.8); ALBUMIN 3.7 g/dL (3.0-4.8); CALCIUM 8.6 mg/dL (8.4-10.5)
[2017-02-22] MEDS: Enoxaparin 30 mg Syringe SC SCH (09:09)
[2017-02-22] MEDS: Fluticasone Nasal 50 mcg/Spray NS SCH (10:11)
[2017-02-22] MEDS: Insulin Detemir 100 units/ml Vial (Levemir) SC SCH (10:22)
[2017-02-22] MEDS: Insulin Lispro 1 UNITS/0.01 ML SC SCH ×2 (10:23→17:20)
[2017-02-22 10:25] VITALS: BP 154/89
--- NOTE | 2017-02-22 12:18 | CP.PCM.PN ---
Subjective - Date & Time of Evaluation Date of Evaluation: 02/22/17 Time of Evaluation: 10:55 - Subjective Subjective: Still with cough but a little less, wheezing is less, no fevers overnight. Objective - Vital Signs/Intake and Output Vital Signs (last 24 hours): Temp Pulse Resp BP Pulse Ox 98 F 86 20 103/46 L 99 02/21/17 18:27 02/22/17 06:00 02/21/17 18:27 02/22/17 00:50 02/22/17 00:50 Intake and Output: 02/22/17 02/22/17 06:59 18:59 Intake Total 480 Output Total 600 Balance -120 - Medications Medications: Current Medications Acetazolamide (Diamox 250 Mg Tab) 250 mg PO DAILY [facility] Stop: 02/22/17 23:59 Last Admin: 02/21/17 10:57 Dose: 250 mg Acetylcysteine (Acetylcysteine 20%) 3 ml INH Q6 [facility] Albuterol/Ipratropium (Duoneb 3 Mg/0.5 Mg (3 Ml) Ud) 3 ml IH [id number] [facility] Last Admin: 02/22/17 07:28 Dose: 3 ml Atorvastatin Calcium (Lipitor) 20 mg PO DAILY [facility] Last Admin: 02/22/17 09:16 Dose: 20 mg Benzocaine/Menthol (Cepacol Sore Throat) 1 edward MT Q2H PRN PRN Reason: Sore Throat Last Admin: 02/21/17 18:46 Dose: 1 edward Clopidogrel Bisulfate (Plavix) 75 mg PO DAILY [facility] Last Admin: 02/22/17 09:17 Dose: 75 mg Doxycycline Hyclate (Doryx) 100 mg PO Q12 [facility] Last Admin: 02/22/17 09:16 Dose: 100 mg Enoxaparin Sodium (Lovenox) 30 mg SC DAILY [facility] PRN Reason: Protocol Last Admin: 02/22/17 09:09 Dose: 30 mg Fluticasone Propionate (Flonase) 1 actuation NS Q12 [facility] Last Admin: 02/21/17 21:30 Dose: 1 spr Furosemide (Lasix) 40 mg IVP DAILY [facility] Last Admin: 02/21/17 18:19 Dose: 40 mg Cefepime HCl (Maxipime 1gm) 1 gm in 100 mls @ 100 mls/hr IVPB Q8 [facility] PRN Reason: Protocol Last Admin: 02/22/17 05:31 Dose: 100 mls/hr Insulin Detemir (Levemir) 10 unit SC DAILY [facility] Last Admin: 02/21/17 10:58 Dose: 10 unit Insulin Human Lispro (Humalog) 5 units SC BIDAC [facility] Last Admin: 02/21/17 18:19 Dose: 5 units Loratadine (Claritin) 10 mg PO DAILY [facility] Last Admin: 02/22/17 09:17 Dose: 10 mg Montelukast Sodium (Singulair) 10 mg PO HS [facility] Last Admin: 02/21/17 21:33 Dose: 10 mg Nicotine (Nicoderm Cq) 1 patch TD DAILY [facility] Last Admin: 02/21/17 10:59 Dose: 1 patch Prednisone (Prednisone Tab) 20 mg PO DAILY [facility] Last Admin: 02/22/17 09:17 Dose: 20 mg Sitagliptin Phosphate (Januvia) 50 mg PO DAILY [facility] Last Admin: 02/22/17 09:16 Dose: 50 mg Sodium Chloride ([place] Nasal Kirvin) 0 ml NS Q2 [facility] Last Admin: 02/22/17 09:21 Dose: Not Given - Labs Labs: 02/22/17 06:30 02/22/17 06:30 PT 12.7 SECONDS (9.4-12.5) H 02/19/17 21:38 INR 1.11 (0.93-1.08) H 02/19/17 21:38 APTT 29.5 Seconds (25.1-36.5) 02/19/17 21:38 - Constitutional Appears: Non-toxic, Chronically Ill - Head Exam Head Exam: NORMAL INSPECTION - ENT Exam ENT Exam: Mucous Membranes Moist - Neck Exam Neck Exam: absent: Lymphadenopathy, Meningismus - Respiratory Exam Respiratory Exam: Decreased Breath Sounds, Wheezes - Cardiovascular Exam Cardiovascular Exam: +S1, +S2 - GI/Abdominal Exam GI & Abdominal Exam: Soft. absent: Tenderness - Extremities Exam Additional comments: both legs with dressings in place Assessment and Plan - Assessment and Plan (Free Text) Plan: Assessment Systemic Inflammatory Response Syndrome, consider COPD exacerbation as well as bilateral lower extremity cellulitis on top of chronic venous stasis history of epidydimitis HTN dyslipidemia chronic CHF CAD COPD chronic renal failure DM obesity with BMI 38 peripheral vascular disease obstructive sleep apnea dementia history of pneumonia Plan continue cefepime and doxycycline day 3; blood cx are negative; follow up sputum cx; PCT is low; reviewed CXR; follow Podiatry evaluation and recommendations; can complete 3-5 days of antibiotics will continue to monitor clinically
--- NOTE | 2017-02-22 12:47 | CON ---
DATE: HISTORY OF PRESENT ILLNESS: A 76-year-old male seen at bedside for consultation, evaluation and management of bilateral lower extremity cellulitis. PAST MEDICAL HISTORY: Significant for morbid obesity, obstructive sleep apnea, chronic congestive heart failure, COPD, chronic renal failure, essential hypertension, dyslipidemia, coronary artery disease, peripheral vascular disease and early dementia. Type 2 diabetes with peripheral vascular disease. PAST SURGICAL HISTORY: Includes cataract surgery. SOCIAL HISTORY: The patient was a former heavy smoker. No longer smokes cigarettes. Denies illicit drug use. Denies alcohol abuse. There is a history of depression. PHYSICAL EXAMINATION: VITAL SIGNS: Revealed temperature of 98, blood pressure of 103/46, pulse rate of 102, respiratory rate of 20. EXTREMITIES: There is noted to be +2 pitting edema bilaterally. Nonpalpable pedal pulses noted bilaterally secondary to edema. There is decreased erythema and calor to both lower extremities. There are currently no open lesions noted. There is no drainage. No signs of the ascending cellulitis. Cellulitis is localized to the distal third of both lower legs. LABORATORY FINDINGS: Reveal a white count of 8.1 down from 13.3 on 02/19/2017, hemoglobin of 9.9, hematocrit of 32.8, platelet count of 239 and ESR of 55. Venous Dopplers reveal no radiographic evidence of deep vein thrombosis in either extremity. Arterial Dopplers reveal relatively normal NANCY and PVRs upon rest. The ankle and metatarsal waveforms are relatively normal and symmetric. ASSESSMENT: Resolving bilateral cellulitis with no open lesions noted. PLAN: The patient was examined. Vascular studies were reviewed. Legs were cleansed with normal sterile saline and application of Xeroform and a two-layer compressive dressing was applied to both lower legs. From podiatric standpoint, the patient is stable, he will need compression stockings which he has been noncompliant with in the past. Explained to Tony that if he does not wear the compression stockings during the day, his legs will swell and weep and he will become infected and his legs will become infected and he will be in the same position as he was when he first came into the hospital. The patient states he likes to use Manas wraps in lieu of compression. I told him that he needs compressive dressing stockings because the Manas wraps are not strong enough. The patient will be seen and followed until discharge. Lul Ovalle DPM
--- NOTE | 2017-02-22 15:29 | PN ---
DATE: 02/22/2017 SUBJECTIVE: The patient is seen sitting in bed. He is awake and alert. He is comfortable. He is complaining of cough. He is complaining of thick viscid phlegm. He denies any chest tightness. PHYSICAL EXAMINATION: GENERAL: Obese elderly male sitting in bed. VITAL SIGNS: Blood pressure 154/89, heart rate 86, respiratory rate 18-20, and temperature 98. HEENT: Normocephalic, atraumatic. NECK: Supple, no JVD. LUNGS: Bilateral equal air entry, bilateral distant breath sounds, bilateral rhonchi. CARDIAC: S1 and S2. Regular rate and rhythm, no murmur, no rub. ABDOMEN: Obese, distended, soft, and nontender, bowel sounds present. EXTREMITIES: Dressing of the lower extremities intact. INTAKE AND OUTPUT: 1680/1700. LABORATORY DATA: WBC 8, hemoglobin 9.9, hematocrit 33, and platelets 239. Sodium 141, potassium 4.3, chloride 100, CO2 30, BUN 40, creatinine 1.9, glucose 109, calcium 8.6, and albumin 3.7. CURRENT MEDICATIONS: Mucomyst, Cepacol, Claritin, Diamox, Doryx 100 q.12 hours, DuoNeb, Flonase, insulin, Januvia, Lasix, Maxipime, and Plavix. ASSESSMENT: 1. Acute kidney injury superimposed on chronic kidney disease stage III. 2. Morbid obesity. 3. [id number] diabetes mellitus. 4. Hypertension. 5. Chronic obstructive pulmonary disease. 6. Bronchitis. PLAN 1. Okay to restart Diovan 40 mg daily as outpatient. 2. Continue low-dose Lasix. 3. Monitor electrolytes as outpatient. 4. No indication for potassium supplementation. 5. Continue respiratory treatments. 6. Complete antibiotics as per ID recommendations. Daria Constantino MD
--- NOTE | 2017-02-22 16:41 | IP.NPCORE ---
COPD Progress Note - COPD Progress Note Spirometry Assessment Completed:: No Plan to assess at outpatient follow up: Yes Symptoms:: Increase in Dyspnea, Cough Date:: 02/20/17 Time:: 19:45 Oxygen Saturation/Pulse Oximetry:: 99 ABG Not Indicated (Symptoms Improved): Yes Nebulizers Q2-4 hrs:: Duonebs/Albuterol Therapy Antibiotics (Name/Dose/Frequency):: doxycycline 100 mg po bid, Cefepime 1 gm iv q 8 hours Systemic Steroids w/ methylprednisolone Name/Dose/Frequency:: prednisone 20 mg po daily Oxygen Delivery Method: Room Air Smoking cessation counseling all stages copd exacerbation: Yes
[2017-02-22] MEDS: Acetylcysteine 20% Inhal Soln (4ml) INH SCH ×3 (17:19→17:22)
[2017-02-22] MEDS: Acetylcysteine 20% Inhal Soln (4ml) PO SCH ×2 (17:21)
--- NOTE | 2017-02-23 01:23 | PN ---
DATE: 02/22/2017 PULMONARY PROGRESS NOTE REFERRING PHYSICIAN: Manoj Reese MD SUBJECTIVE: The patient is sitting up in the chair. Night was unremarkable. Feels better. Decreased cough. Decreased shortness of breath. No nausea. No vomiting. No diarrhea. He has a lymphedema. PHYSICAL EXAMINATION GENERAL: In no acute distress. VITAL SIGNS: Temperature is 98, heart rate is 86, respiratory rate is 20, blood pressure is 154/89 and pulse oximetry 99% on 2 L nasal cannula. HEENT: Moist mucous membrane. Crowded airway. Mallampati score is IV. NECK: Supple. No JVD. LUNGS: Has fair airflow with rhonchi. HEART: S1 and S2. ABDOMEN: Soft, nontender, nondistended. EXTREMITIES: Has lymphedema. NEUROLOGICAL: Awake and alert. Follows simple command. MEDICATIONS: No new changes reported since yesterday. LABORATORY DATA: Shows hemoglobin 9.9, hematocrit 32.8, WBC 8.1, platelets are 239. Sodium 141, potassium 4.3, chloride 100, bicarbonate 30, BUN 40, creatinine 1.9, glucose 109, calcium is 8.6. AST 27, ALT 32, alkaline phos is 60. C-reactive protein is 0.60. Albumin is 3.7. Microbiology: Blood culture and urine culture, there is no growth. IMPRESSION AND PLAN: Chronic obstructive lung disease, sleep apnea syndrome, hypoventilation syndrome, morbid obesity, diabetes, history of right mid stem bronchus nodule, peripheral neuropathy, chronic stasis dermatitis of the lower extremity, lymphedema. Does not want to pursue with any further. CT of the chest in the past has been stable, bronchial nodule, understand the risk. Pulmonary point of view, continue bronchodilator, fall precaution, sleep apnea precaution, avoid sedation. Recommended CPAP use. Lucia Garza MD
--- NOTE | 2017-02-23 09:57 | PN ---
DATE: 02/21/2017 SUBJECTIVE: The patient is seen, doing well. No respiratory distress. No new complaints. He had his lower extremity seen by [employer] and dressing change for both lower extremity was done. He has no new complaints. Currently on IV antibiotics. No new complaint. PHYSICAL EXAMINATION: As follows; VITAL SIGNS: His temperature 98, heart rate is 98, blood pressure 118/66, respirations 20, saturations 99% on 2 L. HEAD AND NECK: Normal. No JVD. No thyromegaly. CHEST: Clear. Good air entry. CARDIAC: First sound and second sound normal. ABDOMEN: Obese, nontender. EXTREMITIES: Bilateral lymphedema, improved and the dressing has been changed. No open wounds. NEUROLOGIC: The patient moves all extremities, but he does have gait disorder due to his severe chronic osteoarthritis and back problem. LABORATORY DATA: His laboratory study is as follows; on 02/21/2017, white count 9.1, hemoglobin 9.8, hematocrit 31.5, platelets 225. Chemistry: Sodium 138, potassium 4.7, chloride 95, bicarb 34, BUN 44, creatinine 1.5. Blood sugar 201 and calcium 8.9. IMPRESSION AND PLAN: 1. Bilateral leg cellulitis. Continue current therapy, meropenem. The patient is doing well. Continue dressing changes and seems doing well with Lasix and local skin dressing. 2. Chronic obstructive pulmonary disease, stable. Continue inhaled bronchodilators, bilevel positive airway pressure machine, seen by Dr. Garza. 3. Chronic renal failure with acute worsening. The patient's renal failure improved, resolved. His creatinine 1.5. We will continue Cozaar and Lasix. Monitor his condition and blood pressure as outpatient. 4. Hypertension; diabetes type 2, using insulin; morbid obesity; obstructive sleep apnea; chronic obstructive pulmonary disease; chronic osteoarthritis; chronic back pain. Plan: Continue current therapy, current medications. Insulin 5 units b.i.d., Plavix 75 mg daily, Diovan. We will start him on Diovan 40 mg daily. Glyburide 5 mg once a day, Januvia 100 mg once a day, Daliresp 500 mg once a day, Lipitor 20 mg at bedtime, Diamox 250 mg once a day, Singulair 10 mg daily, Claritin 10 mg daily, Levemir 10 units subcu daily and Flonase nasal spray. We will consider switching the patient to p.o. tomorrow after ID evaluate him. May be we will discharge tomorrow. Manoj Reese MD
--- NOTE | 2017-02-23 16:11 | DS ---
HISTORY OF PRESENT ILLNESS: The patient is stable, seen by nurse practitioner. He has no chest pain, no distress. He feels better. Switched meropenem to p.o. doxycycline. Discussed with nephrology. It is okay to put him back on his Diovan plus Lasix. We will continue followup as outpatient. PHYSICAL EXAMINATION: VITAL SIGNS: On discharge, temperature 98, heart rate 86, blood pressure 154/89, saturating 99% on room air. HEAD AND NECK: Normal. No JVD. CHEST: Clear. CARDIAC: First sound and second sound are normal. ABDOMEN: Obese and nontender. EXTREMITIES: No edema. NEUROLOGIC: Normal. Both legs are warped with gauze. LABORATORY DATA: On 02/22/2017, sodium 141, potassium 4.3, chloride 100, bicarb 30, BUN 40, creatinine 1.9. Hematology schulz, his white count 8.1, hemoglobin 9.9, hematocrit 32.8, platelets 239. IMPRESSION: 1. Bilateral lower extremity cellulitis - mild bronchitis. Continue doxycycline p.o. for 7 days. 2. Anemia, chronic. Had a GI endoscopy before and colonoscopy. 3. Chronic renal insufficiency with acute worsening. Monitor his hydration status and continue Diovan and Lasix for leg swelling p.r.n. 4. Diabetes. Resume his insulin, Micronase p.r.n. The patient monitors his sugar because of frequent hypoglycemia, was oral hypoglycemic, I advised to not to take the Micronase; however, we will discuss with him further as outpatient. He uses it once a day and his sugar seems stable, as he said. 5. Chronic obstructive pulmonary disease, morbid obesity, chronic back pain, chronic osteoarthritis, obstructive sleep apnea, chronic severe knee arthritis, severe multiple disk disease and osteoarthritis of the back. 6. Chronic renal insufficiency. PLAN: Discharge the patient home. Followup as an outpatient. Currently on Humalog 5 units b.i.d., Plavix 75 mg once a day, Diovan 40 once a day, Micronase 5 mg or half a pill once a day and monitor his sugar, Januvia 50 mg once a day, Daliresp 500 mg once a day, Lipitor 20 mg p.o. daily, Diamox 125 mg p.o. daily, Singular 10 mg, Claritin 10, Levemir 10 units subcu, continue nebulizer treatment, continue doxycycline for 5 more days. Manoj Reese MD
== END 2017-02-22 17:26 | disposition home or self-care (01) | DRG 603 ==
LOC: ED 18:42 → ERH 02-20 00:40 → 3RNO 02-20 12:55
PROVIDERS: ADMIT Internal Medicine; ATTEND Internal Medicine
DX: L03.115 Cellulitis of right lower limb (principal); I13.0 Hypertensive heart and chronic kidney disease with heart failure and stage 1 through stage 4 chronic kidney disease, or unspecified chronic kidney disease; J44.1 Chronic obstructive pulmonary disease with (acute) exacerbation; N17.9 Acute kidney failure, unspecified; N18.4 Chronic kidney disease, stage 4 (severe); I42.9 Cardiomyopathy, unspecified; R65.10 Systemic inflammatory response syndrome (SIRS) of non-infectious origin without acute organ dysfunction; E87.4 Mixed disorder of acid-base balance; L03.116 Cellulitis of left lower limb; E86.0 Dehydration; I50.9 Heart failure, unspecified; E11.42 Type 2 diabetes mellitus with diabetic polyneuropathy; E11.22 Type 2 diabetes mellitus with diabetic chronic kidney disease; E11.51 Type 2 diabetes mellitus with diabetic peripheral angiopathy without gangrene; I89.0 Lymphedema, not elsewhere classified; M17.0 Bilateral primary osteoarthritis of knee; G47.33 Obstructive sleep apnea (adult) (pediatric); E78.00 Pure hypercholesterolemia, unspecified; I87.8 Other specified disorders of veins; E66.01 Morbid (severe) obesity due to excess calories; I25.10 Atherosclerotic heart disease of native coronary artery without angina pectoris; F32.9 Major depressive disorder, single episode, unspecified; R91.1 Solitary pulmonary nodule; F03.90 Unspecified dementia, unspecified severity, without behavioral disturbance, psychotic disturbance, mood disturbance, and anxiety; Z79.4 Long term (current) use of insulin; Z87.891 Personal history of nicotine dependence; Z68.38 Body mass index [BMI] 38.0-38.9, adult; Z91.19 Patient's noncompliance with other medical treatment and regimen; Z87.01 Personal history of pneumonia (recurrent)